=== PATIENT | female | born 1930 | race Caucasian/White ===

== ENCOUNTER → 2016-11-13 | Outpatient (CLI) | payer MEDICARE, OTHER ==
[~2016-11-13] MED LIST: ASCO-296 PO; CALC PO; CHOL100018 PO; HYDR-2164 PO; LEVO125T70 PO; MAG PO; NITR0.4T28 SL; OMEP20CA81 PO; POTA-81 PO; PRAV40TA46 PO; PROP20TA PO; VITA1TAB21 PO; ZINC PO; [UNRECOGNIZED DRUG - CODE] IH
--- NOTE | 2016-11-13 12:56 | DI ---
Indication: Follow-up, history of left breast cancer with lung metastases, history of partial left mastectomy with lymph node dissection, history of appendectomy, hysterectomy, lung biopsy, Cholecystectomy, bladder suspension, splenectomy, and incisional hernia repair Procedure: CT CHEST/ABDOMEN/PELVIS W/O: Encounter: Subsequent Comparison: CTs 07/13/2016 and 02/25/2016, bone scan 07/13/2016 Technique: Contiguous axial CT images of the chest, abdomen, and pelvis were obtained without intravenous contrast. Coronal and sagittal reformatted images were also obtained. Automated Exposure Control and Iterative Reconstruction dose reducing techniques were utilized. FINDINGS: Evaluation limited by lack of intravenous contrast. Chest: Unchanged scattered small pulmonary nodules, largest within the right lower lobe measuring 5 mm. Unchanged right middle lobe scarring. No new pulmonary nodule, mass, or focal consolidation. No endoluminal lesion. No pleural effusions or pneumothorax. The visualized thyroid gland appears normal. No mediastinal or hilar lymphadenopathy allowing for lack of intravenous contrast. The visualized esophagus appears normal. The heart is normal in size without pericardial effusion. Coronary arterial and thoracic aortic atherosclerotic calcifications. The great vessels of the thorax are otherwise within normal limits. No axillary lymphadenopathy. Postoperative changes of partial left mastectomy. No acute osseous abnormality. Unchanged osteoblastic lesions within C6, T1, and T12. Abdomen: The liver enhances homogeneously without focal mass. The gallbladder is surgically absent. No biliary ductal dilatation. The pancreas enhances homogeneously. The spleen is normal in size and enhancement. The adrenal glands are within normal limits. Unchanged left renal cyst. The noncontrast kidneys appear otherwise grossly normal. The ureters are normal in course and caliber. The abdominal aorta is normal in course and caliber. Small to moderate hiatal hernia. Postoperative changes of the stomach which is partially distended and appears otherwise normal. Small bowel loops are normal in caliber without evidence of obstruction. The colon appears normal. The appendix is normal. No intra-abdominal free air, free fluid, focal fluid collections, or lymphadenopathy. No acute osseous abnormality. Unchanged chronic spondylolytic anterolisthesis of L5-S1. Pelvis: Evaluation limited by streak artifact from the patient's left hip prosthesis. The bladder is distended and appears normal. The uterus is surgically absent. No adnexal masses seen. No pelvic free fluid or lymphadenopathy. No acute osseous abnormality. Unchanged osteoblastic lesion within the sacrum. Postoperative changes of left hip arthroplasty. Degenerative arthrosis of the SI joints. Impression: Redemonstration of postoperative changes of partial left mastectomy with unchanged small pulmonary nodules, largest measuring 5 mm within the right lower lobe and sclerotic lesions within C6, T1, T12, and the sacrum, without evidence of new/progressive metastatic disease. .
--- NOTE | 2016-11-13 14:23 | DI ---
Indication: ITS.REASON: C50.12 BREAST CA PROCEDURE: NM BONE SCAN, WHOLE BODY: Encounter: Subsequent Comparison: CTs of the chest, abdomen, and pelvis of the same day, prior bone scan 07/13/2016 Technique: 25.1 mCi of Tc-99m MDP was administered intravenously. Anterior and posterior planar whole-body and spot images were obtained. FINDINGS: The scan demonstrates the expected normal biodistribution for the radiotracer. There is probable degenerative uptake seen in the shoulders, left knee, and left midfoot. Photopenic defects from left hip and right knee replacements again noted. Increased activity seen associated with the known sclerotic lesion within T12. Additional increased uptake associated with a lesion within the posterolateral right seventh rib which appears unchanged by CT. There is no other/new abnormal radiotracer uptake to suggest bony metastasis. IMPRESSION: Increased activity seen associated with sclerotic lesions within T12 in the posterolateral left seventh rib which appear unchanged by CT. No other/new metastases identified. .
== END ==
LOC: IMA 10:02
PROVIDERS: ATTEND Internal Medicine Hematology & Oncology
DX: C50.312 Malignant neoplasm of lower-inner quadrant of left female breast (principal); M89.8X0 Other specified disorders of bone, multiple sites; R91.8 Other nonspecific abnormal finding of lung field; Z90.12 Acquired absence of left breast and nipple; Z98.890 Other specified postprocedural states
CPT/HCPCS: 71250; 74176; 78306; A9503

== ENCOUNTER 2017-05-10 20:22 | Inpatient (IN) ==
[2017-05-10] MEDS ORDERED: GI COCKTAIL 30 ML PO ONE (21:05)
--- NOTE | 2017-05-10 21:14 | Emergency Department Report ---
Chest Pain HPI - General Chief Complaint: Medical Emergency <[facility] 05/11[facility]17 00:58> Stated Complaint: GERD attack,Swelling legs/feet <November,[facility] 05/11/17 00:58 > Time Seen by Provider: 05/10/17 20:56 [facility] Source: patient <Megan Martinez - 05/10/17 21:14> Mode of arrival: ambulatory <NoRoseann friedmana N - 05/10/17 21:14> Limitations: no limitations <NoldMariahMegan N - 05/10/17 21:14> - History of Present Illness HPI narrative: She presents to ER jade for c/o chest pain. She states that this has been going on for the last 2 weeks. She feels that it is worse with ambulation. She was recently admitted to [facility] and had chest pain workup. She was advised that this was bad GERD. She has been taking her <Nold,Megan N - 05/10/17 21:37> MD complaint: chest pain <NoldRoseanna N 05/10/17 21:14> Occurred At: home <NoldMariahMegan N 05/10/17 21:14> Onset (ago): week(s) (For the last 2 weeks.) <NoldMariahMegan N 05/10/17 21:14> Duration: intermittent <NoldMariahMegan N 05/10/17 23:30> Onset: during exertion <Nold,Megan N 05/10/17 23:30> Pain location: substernal <Nold,Megan N - 05/10/17 23:30> Severity: moderate <Nold,Megan N - 05/10/17 23:30> Quality: tightness <Nold,Megan N 05/10/17 23:30> Pain radiation: none <Nold,Megan N 05/10/17 23:30> Relieving factors: nothing <Nold,Megan N - 05/10/17 23:30> Exacerbating factors: exertion <Nold,Megan N 05/10/17 23:30> Associated symptoms: other (None) <Nold,Megan N - 05/10/17 23:30> Treatments prior to arrival chest pain: none <Megan Martinez - 05/10/17 23:30> - Related Data Home Medications Medication Instructions Recorded Confirmed Albuterol Sulfate 2.5 mg IH BID #0 03/18/09 05/10/17 Ascorbic Acid [Vitamin C] 500 mg PO DAILY #0 03/18/09 05/10/17 Nitroglycerin [Nitrostat] 0.4 mg SL Q5MIN #0 03/18/09 05/10/17 Levothyroxine Tab [Synthroid] 125 mcg PO ACB #0 01/05/14 05/10/17 Pravastatin Sodium 40 mg PO HS #0 01/05/14 05/10/17 Propranolol HCl 20 mg PO BID #0 01/05/14 05/10/17 Potassium Chloride 20 meq PO WB #0 12/23/15 05/10/17 Vitamin B Complex 1 tab PO DAILY #0 12/23/15 05/10/17 Ferrous Sulfate [Feosol] 324 mg PO DAILY 05/10/17 05/10/17 Levofloxacin [Levaquin] 500 mg PO DAILY 05/10/17 05/10/17 Omeprazole 20 mg PO DAILY 05/10/17 05/10/17 Palbociclib [Ibrance] 125 mg PO DAILY 05/10/17 05/10/17 Torsemide [Torsemide] 10 mg PO DAILY 05/10/17 05/10/17 <[facility] 00:58> Allergies Allergy/AdvReac Type Severity Reaction Status Date / Time iodine Allergy Severe DIFFICULTY Verified 05/10/17 21:11 BREATHING venom-honey bee Allergy Unknown Verified 05/10/17 21:11 venom-wasp Allergy Unknown Verified 05/10/17 21:11 <[facility] 00:58> Review of Systems Constitutional: Denies: fever, chills, weakness <Megan Martinez - 05/10/17 23: 30> ENT: Denies: ear pain, throat pain, congestion <Megan Martinez - 05/10/17 23:30 > Cardiovascular: Reports: chest pain, dyspnea on exertion, edema (bilateral lower extremities). Denies: palpitations <Megan Martinez 05/10/17 23:30> Respiratory: Denies: cough, dyspnea, wheezes <Megan Martinez 05/10/17 23:30> Gastrointestinal: Denies: abdominal pain, nausea, vomiting, diarrhea <Megan Martinez 05/10/17 23:30> Integumentary: Denies: rash <Megan Martinez 05/10/17 23:30> Neurological: Denies: headache, weakness, numbness, paresthesias <Megan Martinez 05/10/17 23:30> PFSH Patient Stated Medical History Cataracts Yes Other HEENT Yes: Legally blind Congestive Heart Failure Yes Hypotension Yes Asthma Yes Other Respiratory Yes: Seasonal allergies Hiatal Hernia Yes Hx Kidney Stones Yes Hx Urinary Tract Infection Yes Other Hematologic Yes: Daily 81mg ASA Osteoarthritis Yes Depression Yes <NovemberJosias M 05/11/17 00:58> Patient Stated Medical History Cataracts Yes Other HEENT Yes: Legally blind Congestive Heart Failure Yes Hypotension Yes Asthma Yes Other Respiratory Yes: Seasonal allergies Hiatal Hernia Yes Hx Kidney Stones Yes Hx Urinary Tract Infection Yes Other Hematologic Yes: Daily 81mg ASA Osteoarthritis Yes Depression Yes <Megan Martinez 05/10/17 23:30> - Social History Smoking status: Never smoker <Megan Martinez 05/10/17 23:30> Substance use type: does not use <Megan Martinez 05/10/17 23:30> Alcohol intake frequency: does not drink <Megan Martinez 05/10/17 23:30> Physical Exam - Limitations Limitations: no limitations <Megan Martinez 05/10/17 23:30> - General General appearance: alert, in no apparent distress <Megan Martinez 05/10/17 23:30> - Normal Exams: ENMT:: No facial trauma, nasal exudates, pharyngeal erythema, or exudates are noted <Megan Martinez 05/10/17 23:30> Neck:: Full range of motion, without adenopathy, JVD, bruits or thyromegaly < Megan Martinez 05/10/17 23:30> Chest/Respirations:: Clear all jacobo, with good airflow, and symmetry bilaterally <Megan Martinez 05/10/17 23:30> Cardiovascular:: Regular rate and rhythm, without murmur or gallop, Pulses 2+ all extremities, capillary refill, <2 seconds all extremities <Megan Martinez 05/10/17 23:30> Abdomen:: Bowel sounds positive, soft, non-tender, non-distended, no hepatosplenomegaly, masses or bruits noted <Megan Martinez 05/10/17 23:30> Lymphatic:: No lymphadenopathy, or lymphedema noted <Megan Martinez 05/10/17 23:30> Integumentary:: No rashes, hives, or bruising noted <Megan Martinez 05/10/17 23:30> Neurological:: Patient is alert, and oriented <Megan Martinez 05/10/17 23:30> Psychiatric:: Patient exhibits, appropriate attention, emotion and affect < Megan Martinez 05/10/17 23:30> - Skin Skin exam: Present: pallor <Megan Martinez 05/10/17 23:30> Course Vital Signs Temperature 97.8 F 05/10/17 20:46 Pulse Rate 88 05/10/17 20:46 Respiratory Rate 18 05/10/17 20:46 Blood Pressure 118/71 05/10/17 20:46 Pulse Oximetry 94 05/10/17 20:46 Temperature 97.4 F 05/11/17 00:48 Pulse Rate 80 05/11/17 00:48 Respiratory Rate 18 05/11/17 00:48 Blood Pressure 133/63 05/11/17 00:48 Pulse Oximetry 98 05/11/17 00:48 <NovemberJosias M - 05/11/17 00:58> Chest Pain - MDM Narrative Medical decision making narrative: Her hgb is low at 6.8. WBC is elevated but source not identified, urine is clear and chest xray is clear as well. Blood cultures are pending. Did offer GI cocktail and Zofran and she did decline both. Troponin is not elevated but noted at 0.024. Lactate is elevated at 2.2, procalcitonin is normal. Rocephin was given IV x1 in ER. Vital are stable. Na is 122. Did discuss findings with Dr Espinoza. He will accept for admission at this time. <Megan Martinez N - 05/10/17 23:30> - Differential Diagnosis Likely: stable angina, unstable angina pectoris, atypical chest pain, st elevation myocardial infarction, costochondritis, chest pain <Megan Martinez N - 05/10/17 23:30> - Lab Data Attestation: I reviewed the patient's lab results. <Megan Martinez N - 05/10/17 23:30> Result diagrams: 05/10/17 21:25 05/10/17 21:25 <November,Josias M - 05/11/17 00:58> Lab Results 05/10/17 05/10/17 05/10/17 Range/Units 21:25 21:25 21:57 WBC 29.3 H* (4.5-11.0) T/MM3 RBC 1.81 L (4.00-5.20) M/MM3 Hgb 6.8 L (12-16) GM/DL Hct 20.6 L (36-46) % MCV 113.8 H (80-100) UM3 MCH 37.6 H (26-34) UUG MCHC 33.0 (31-37) GM/DL RDW Std Deviation Not performed Plt Count 177 (130-400) T/MM3 MPV 10.5 (9.4-12.4) UM3 Immature Gran % (Auto) Not performed Neut % (Auto) Not performed Lymph % (Auto) Not performed [place] % (Auto) Not performed Eos % (Auto) Not performed Baso % (Auto) Not performed Neut # (Auto) Not performed Lymph # (Auto) Not performed [place] # (Auto) Not performed Eos # (Auto) Not performed Baso # (Auto) Not performed Abs Immat Gran (auto) Not performed Neutrophils % (Manual) 36.0 (33-66) % Band Neutrophils % 48.0 H (0-6) % Lymphocytes % (Manual) 9.0 L (23-45) % Monocytes % (Manual) 1.0 (0-9.0) % Basophils % (Manual) 1.0 (0-2) % Metamyelocytes % 5.0 H (0-0) % Neutrophils # (Manual) 10.5 H (1.8-7.7) T/MM3 Band Neutrophils # 14.1 T/MM3 Lymphocytes # (Manual) 2.6 (1-4.8) T/MM3 Monocytes # (Manual) 0.3 (0-0.8) T/MM3 Basophils # (Manual) 0.3 H (0-0.2) T/MM3 Metamyelocytes # 1.5 T/MM3 Poikilocytosis 2+ Anisocytosis 3+ Macrocytosis 2+ Schistocytes 2+ RBC Morph Comment Abnormal Turbidity < 20 (0-20) Sodium 122 L (134-144) MEQ/L Potassium 4.2 (3.6-5) MEQ/L Chloride 91 L (98-107) MEQ/L Carbon Dioxide 24 (22-30) MEQ/L Anion Gap 7 (5-15) MEQ/L BUN 11.0 (7-17) MG/DL Creatinine 0.6 L (0.7-1.2) MG/DL GFR Calculation 94 BUN/Creatinine Ratio 18 (6-26) RATIO Glucose 155 H (65-110) MG/DL Calculated Osmolality 238 L (261-280) MOSM/KG Calcium 8.5 (8.4-10.2) MG/DL Total Bilirubin 0.40 (0.20-1.30) MG/DL Icterus Index < 2 (0-7) AST 39 H (14-36) U/L ALT 40 (9-52) U/L Alkaline Phosphatase 70 (38-126) U/L Troponin I 0.024 (0-0.12) ng/ml B-Natriuretic Peptide 6760 H (0-175) pg/mL Total Protein 6.4 (6.3-8.2) G/DL Albumin 3.4 L (3.5-5.0) G/DL Globulin 3.0 (2.4-3.6) G/DL Albumin/Globulin Ratio 1.1 (1.1-2.2) RATIO Plasma Lactate (0.6-2.2) MMOL/L Procalcitonin NG/ML Specimen Hemolysis 32 H (0-25) Ur Collection Type Urine Color (YELLOW) Urine Clarity Urine pH (5.0-8.0) Ur Specific [place] (1.015-1.025) Urine Protein (NEGATIVE) Urine Glucose (UA) (NEGATIVE) Urine Ketones (NEGATIVE) Urine Occult Blood (NEGATIVE) Urine Nitrate (NEGATIVE) Urine Bilirubin (NEGATIVE) Urine Urobilinogen (NORMAL) EU/DL Ur Leukocyte Esterase (NEGATIVE) Urinalysis Comment Blood Type A Negative Antibody Screen Positive A* Antibody Identification Anti-D 05/10/17 05/10/17 05/10/17 Range/Units 22:16 22:16 22:47 WBC (4.5-11.0) T/MM3 RBC (4.00-5.20) M/MM3 Hgb (12-16) GM/DL Hct (36-46) % MCV (80-100) UM3 MCH (26-34) UUG MCHC (31-37) GM/DL RDW Std Deviation Plt Count (130-400) T/MM3 MPV (9.4-12.4) UM3 Immature Gran % (Auto) Neut % (Auto) Lymph % (Auto) [place] % (Auto) Eos % (Auto) Baso % (Auto) Neut # (Auto) Lymph # (Auto) [place] # (Auto) Eos # (Auto) Baso # (Auto) Abs Immat Gran (auto) Neutrophils % (Manual) (33-66) % Band Neutrophils % (0-6) % Lymphocytes % (Manual) (23-45) % Monocytes % (Manual) (0-9.0) % Basophils % (Manual) (0-2) % Metamyelocytes % (0-0) % Neutrophils # (Manual) (1.8-7.7) T/MM3 Band Neutrophils # T/MM3 Lymphocytes # (Manual) (1-4.8) T/MM3 Monocytes # (Manual) (0-0.8) T/MM3 Basophils # (Manual) (0-0.2) T/MM3 Metamyelocytes # T/MM3 Poikilocytosis Anisocytosis Macrocytosis Schistocytes RBC Morph Comment Turbidity (0-20) Sodium (134-144) MEQ/L Potassium (3.6-5) MEQ/L Chloride (98-107) MEQ/L Carbon Dioxide (22-30) MEQ/L Anion Gap (5-15) MEQ/L BUN (7-17) MG/DL Creatinine (0.7-1.2) MG/DL GFR Calculation BUN/Creatinine Ratio (6-26) RATIO Glucose (65-110) MG/DL Calculated Osmolality (261-280) MOSM/KG Calcium (8.4-10.2) MG/DL Total Bilirubin (0.20-1.30) MG/DL Icterus Index (0-7) AST (14-36) U/L ALT (9-52) U/L Alkaline Phosphatase (38-126) U/L Troponin I (0-0.12) ng/ml B-Natriuretic Peptide (0-175) pg/mL Total Protein (6.3-8.2) G/DL Albumin (3.5-5.0) G/DL Globulin (2.4-3.6) G/DL Albumin/Globulin Ratio (1.1-2.2) RATIO Plasma Lactate 2.2 (0.6-2.2) MMOL/L Procalcitonin 0.12 NG/ML Specimen Hemolysis (0-25) Ur Collection Type Urine, clean catch Urine Color Yellow (YELLOW) Urine Clarity Clear Urine pH 5.5 (5.0-8.0) Ur Specific [place] 1.015 (1.015-1.025) Urine Protein Negative (NEGATIVE) Urine Glucose (UA) Negative (NEGATIVE) Urine Ketones Negative (NEGATIVE) Urine Occult Blood Negative (NEGATIVE) Urine Nitrate Negative (NEGATIVE) Urine Bilirubin Negative (NEGATIVE) Urine Urobilinogen 0.2 (NORMAL) EU/DL Ur Leukocyte Esterase Negative (NEGATIVE) Urinalysis Comment Microscopic not ind. Blood Type Antibody Screen Antibody Identification < M - 05/11/17 00:58> Lab Results 05/10/17 05/10/17 05/10/17 Range/Units 21:25 21:25 21:57 WBC 29.3 H* (4.5-11.0) T/MM3 RBC 1.81 L (4.00-5.20) M/MM3 Hgb 6.8 L (12-16) GM/DL Hct 20.6 L (36-46) % MCV 113.8 H (80-100) UM3 MCH 37.6 H (26-34) UUG MCHC 33.0 (31-37) GM/DL RDW Std Deviation Not performed Plt Count 177 (130-400) T/MM3 MPV 10.5 (9.4-12.4) UM3 Immature Gran % (Auto) Not performed Neut % (Auto) Not performed Lymph % (Auto) Not performed [place] % (Auto) Not performed Eos % (Auto) Not performed Baso % (Auto) Not performed Neut # (Auto) Not performed Lymph # (Auto) Not performed [place] # (Auto) Not performed Eos # (Auto) Not performed Baso # (Auto) Not performed Abs Immat Gran (auto) Not performed Neutrophils % (Manual) 36.0 (33-66) % Band Neutrophils % 48.0 H (0-6) % Lymphocytes % (Manual) 9.0 L (23-45) % Monocytes % (Manual) 1.0 (0-9.0) % Basophils % (Manual) 1.0 (0-2) % Metamyelocytes % 5.0 H (0-0) % Neutrophils # (Manual) 10.5 H (1.8-7.7) T/MM3 Band Neutrophils # 14.1 T/MM3 Lymphocytes # (Manual) 2.6 (1-4.8) T/MM3 Monocytes # (Manual) 0.3 (0-0.8) T/MM3 Basophils # (Manual) 0.3 H (0-0.2) T/MM3 Metamyelocytes # 1.5 T/MM3 Poikilocytosis 2+ Anisocytosis 3+ Macrocytosis 2+ Schistocytes 2+ RBC Morph Comment Abnormal Turbidity < 20 (0-20) Sodium 122 L (134-144) MEQ/L Potassium 4.2 (3.6-5) MEQ/L Chloride 91 L (98-107) MEQ/L Carbon Dioxide 24 (22-30) MEQ/L Anion Gap 7 (5-15) MEQ/L BUN 11.0 (7-17) MG/DL Creatinine 0.6 L (0.7-1.2) MG/DL GFR Calculation 94 BUN/Creatinine Ratio 18 (6-26) RATIO Glucose 155 H (65-110) MG/DL Calculated Osmolality 238 L (261-280) MOSM/KG Calcium 8.5 (8.4-10.2) MG/DL Total Bilirubin 0.40 (0.20-1.30) MG/DL Icterus Index < 2 (0-7) AST 39 H (14-36) U/L ALT 40 (9-52) U/L Alkaline Phosphatase 70 (38-126) U/L Troponin I 0.024 (0-0.12) ng/ml B-Natriuretic Peptide 6760 H (0-175) pg/mL Total Protein 6.4 (6.3-8.2) G/DL Albumin 3.4 L (3.5-5.0) G/DL Globulin 3.0 (2.4-3.6) G/DL Albumin/Globulin Ratio 1.1 (1.1-2.2) RATIO Plasma Lactate (0.6-2.2) MMOL/L Procalcitonin NG/ML Specimen Hemolysis 32 H (0-25) Ur Collection Type Urine Color (YELLOW) Urine Clarity Urine pH (5.0-8.0) Ur Specific [place] (1.015-1.025) Urine Protein (NEGATIVE) Urine Glucose (UA) (NEGATIVE) Urine Ketones (NEGATIVE) Urine Occult Blood (NEGATIVE) Urine Nitrate (NEGATIVE) Urine Bilirubin (NEGATIVE) Urine Urobilinogen (NORMAL) EU/DL Ur Leukocyte Esterase (NEGATIVE) Urinalysis Comment Blood Type A Negative Antibody Screen Positive A* Antibody Identification Anti-D 05/10/17 05/10/17 05/10/17 Range/Units 22:16 22:16 22:47 WBC (4.5-11.0) T/MM3 RBC (4.00-5.20) M/MM3 Hgb (12-16) GM/DL Hct (36-46) % MCV (80-100) UM3 MCH (26-34) UUG MCHC (31-37) GM/DL RDW Std Deviation Plt Count (130-400) T/MM3 MPV (9.4-12.4) UM3 Immature Gran % (Auto) Neut % (Auto) Lymph % (Auto) [place] % (Auto) Eos % (Auto) Baso % (Auto) Neut # (Auto) Lymph # (Auto) [place] # (Auto) Eos # (Auto) Baso # (Auto) Abs Immat Gran (auto) Neutrophils % (Manual) (33-66) % Band Neutrophils % (0-6) % Lymphocytes % (Manual) (23-45) % Monocytes % (Manual) (0-9.0) % Basophils % (Manual) (0-2) % Metamyelocytes % (0-0) % Neutrophils # (Manual) (1.8-7.7) T/MM3 Band Neutrophils # T/MM3 Lymphocytes # (Manual) (1-4.8) T/MM3 Monocytes # (Manual) (0-0.8) T/MM3 Basophils # (Manual) (0-0.2) T/MM3 Metamyelocytes # T/MM3 Poikilocytosis Anisocytosis Macrocytosis Schistocytes RBC Morph Comment Turbidity (0-20) Sodium (134-144) MEQ/L Potassium (3.6-5) MEQ/L Chloride (98-107) MEQ/L Carbon Dioxide (22-30) MEQ/L Anion Gap (5-15) MEQ/L BUN (7-17) MG/DL Creatinine (0.7-1.2) MG/DL GFR Calculation BUN/Creatinine Ratio (6-26) RATIO Glucose (65-110) MG/DL Calculated Osmolality (261-280) MOSM/KG Calcium (8.4-10.2) MG/DL Total Bilirubin (0.20-1.30) MG/DL Icterus Index (0-7) AST (14-36) U/L ALT (9-52) U/L Alkaline Phosphatase (38-126) U/L Troponin I (0-0.12) ng/ml B-Natriuretic Peptide (0-175) pg/mL Total Protein (6.3-8.2) G/DL Albumin (3.5-5.0) G/DL Globulin (2.4-3.6) G/DL Albumin/Globulin Ratio (1.1-2.2) RATIO Plasma Lactate 2.2 (0.6-2.2) MMOL/L Procalcitonin 0.12 NG/ML Specimen Hemolysis (0-25) Ur Collection Type Urine, clean catch Urine Color Yellow (YELLOW) Urine Clarity Clear Urine pH 5.5 (5.0-8.0) Ur Specific [place] 1.015 (1.015-1.025) Urine Protein Negative (NEGATIVE) Urine Glucose (UA) Negative (NEGATIVE) Urine Ketones Negative (NEGATIVE) Urine Occult Blood Negative (NEGATIVE) Urine Nitrate Negative (NEGATIVE) Urine Bilirubin Negative (NEGATIVE) Urine Urobilinogen 0.2 (NORMAL) EU/DL Ur Leukocyte Esterase Negative (NEGATIVE) Urinalysis Comment Microscopic not ind. Blood Type Antibody Screen Antibody Identification <Megan Martinez N - 05/10/17 21:23> - Radiology Data Attestation: I reviewed the patient's radiology results. <November 22:10> CXR: B/l pulm effusion; increased RLL opacity c/w possible PNA. <05/10/17 22:10> - EKG Data EKG #1 EKG attestation: Yes: I reviewed and interpreted this EKG. < 00:58> EKG shows normal: sinus rhythm, axis, intervals <05/11/17 00:58> Rate: normal <05/11/17 00:58> QRS morphology: other (Righ ventricular conduction delay) <05/11 00:58> Interpretation: nonspecific ST-T wave changes 05/11/17 00:58> Disposition Clinical Impression: Anemia Qualifiers: Anemia type: unspecified type Qualified Code(s): D64.9 - Anemia, unspecified Leukocytosis Qualifiers: Leukocytosis type: other Qualified Code(s): D72.828 - Other elevated white blood cell count <05/11/17 00:58> Disposition: 02 To [facility] [place] Acute Care <05/11/17 00:58> Condition: Stable <05/11/17 00:58> Instructions: <05/11/17 00:58> Prescriptions: No Action Nitroglycerin [Nitrostat] 0.4 mg SL Q5MIN #0 Vitamin B Complex 1 tab PO DAILY #0 Potassium Chloride 20 meq PO WB #0 Omeprazole 20 mg PO DAILY Torsemide [Torsemide] 10 mg PO DAILY Palbociclib [Ibrance] 125 mg PO DAILY Levofloxacin [Levaquin] 500 mg PO DAILY Ferrous Sulfate [Feosol] 324 mg PO DAILY Albuterol Sulfate 2.5 mg IH BID #0 Ascorbic Acid [Vitamin C] 500 mg PO DAILY #0 Pravastatin Sodium 40 mg PO HS #0 Propranolol HCl 20 mg PO BID #0 Levothyroxine Tab [Synthroid] 125 mcg PO ACB #0 <05/11/17 00: 58> Referrals: Darius Rangel II, MD [Family Provider] - /27/ 17 00:58> Forms: <NovemberJosias M - 05/11/17 00:58> Time of Disposition: 23:14 <Megan Martinez N - 05/10/17 23:14> - Seen By: midlevel <Megan Martinez N - 05/10/17 23:14>
[2017-05-10] MEDS ORDERED: ONDANSETRON 4 MG/2 ML INJECTION IVP ONE (21:23)
[2017-05-10] MEDS ORDERED: CEFTRIAXONE (ER USE ONLY) 1 GM in NS 100 ML IV ONE (22:06)
[2017-05-10] MEDS: SALINE FLUSH 10ml SYRINGE IVF PRN (22:20)
--- NOTE | 2017-05-10 23:28 | History & Physical Report ---
History of Present Illness Date: 05/11/17 Chief complaint: chest pain HPI: 87-year-old female presents to the emergency room with chest pain. She says it feels like GERD/heartburn. has been intermittent over the past 2 weeks and spent much worse with activity. [facility] what sounds like for a workup for this. Apparently she had a cardiac workup, but is not clear to me if she had a GI workup as well. She does report that she had some polyps taken out and stomach 2 years ago but she doesn't seem to remember endoscopy in the last week or 2. She says drinking hot water helps it, she also describes that sounds like she's gotten either iron infusions or perhaps other shots for anemia in the past few days with her oncologist. She is seeing for her breast cancer/lung cancer treatments she denies any fever or chills she denies any productive cough. She denies nausea vomiting she denies any bloody stools but she says she has black stools from iron she is taking. She denies any skin rash or areas that she thinks are infected on her skin. Review of Systems All systems PM: 10-point ROS was reviewed, no additional remarkable complaints except PFSH Patient Stated Medical History Cataracts Yes Other HEENT Yes: Legally blind Congestive Heart Failure Yes Hypotension Yes Asthma Yes Other Respiratory Yes: Seasonal allergies Hiatal Hernia Yes Hx Kidney Stones Yes Hx Urinary Tract Infection Yes Other Hematologic Yes: Daily 81mg ASA Osteoarthritis Yes Depression Yes Surgical History: L breast lumpectomy. Splenectomy s/p trauma Family History: n/c based on age - Social History Smoking status: Former smoker Substance use type: does not use Alcohol intake frequency: does not drink Housing: house Household members: children (son has been living with her past week with recent illness) Medications Home Medications Medication Instructions Recorded Confirmed Type Albuterol Sulfate 2.5 mg IH BID #0 03/18/09 05/10/17 History Ascorbic Acid [Vitamin C] 500 mg PO DAILY #0 03/18/09 05/10/17 History Nitroglycerin [Nitrostat] 0.4 mg SL Q5MIN #0 03/18/09 05/10/17 History Levothyroxine Tab [Synthroid] 125 mcg PO ACB #0 01/05/14 05/10/17 History Pravastatin Sodium 40 mg PO HS #0 01/05/14 05/10/17 History Propranolol HCl 20 mg PO BID #0 01/05/14 05/10/17 History Potassium Chloride 20 meq PO WB #0 12/23/15 05/10/17 History Vitamin B Complex 1 tab PO DAILY #0 12/23/15 05/10/17 History Ferrous Sulfate [Feosol] 324 mg PO DAILY 05/10/17 05/10/17 History Levofloxacin [Levaquin] 500 mg PO DAILY 05/10/17 05/10/17 History Omeprazole 20 mg PO DAILY 05/10/17 05/10/17 History Palbociclib [Ibrance] 125 mg PO DAILY 05/10/17 05/10/17 History Torsemide [Torsemide] 10 mg PO DAILY 05/10/17 05/10/17 History Allergies Allergy/AdvReac Type Severity Reaction Status Date / Time iodine Allergy Severe DIFFICULTY Verified 05/11/17 02:38 BREATHING venom-honey bee Allergy Unknown Verified 05/11/17 02:38 venom-wasp Allergy Unknown Verified 05/11/17 02:38 Exam Vital Signs: Temperature 97.8 F 05/10/17 20:46 Pulse Rate 59 L 05/10/17 23:12 Respiratory Rate 18 05/10/17 23:12 Blood Pressure 129/79 05/10/17 23:12 Pulse Oximetry 98 05/10/17 23:12 Height/Weight/BMI: Height 1.55 m Weight 76.204 kg - Constitutional Present: no acute distress (quite pleasant to visit with) - Routine HEENT Exam Head: Present: normocephalic - Routine Neck Exam Present: supple - Routine Respiratory Exam Present: CTA bilaterally. Absent: accessory muscle use - Routine Cardiovascular Exam Present: RRR, murmur (3/6 at left sternal border) - Routine Abdominal Exam Present: soft, normoactive bowel sounds, non distended, non tender - Routine Extremities Exam Present: edema (2+ legs (chronic appearing) ). Absent: cyanosis, clubbing - Routine Skin Exam Present: intact - Routine Neurological Exam Present: alert, oriented X3, CN II-XII intact - Routine Psychiatric Exam Present: normal affect Results - Labs CBC & Chem 7: 05/10/17 21:25 05/10/17 21:25 Microbiology Results: Microbiology 05/10/17 22:16 Peripheral/Iv Start Blood Culture - Preliminary Culture Initiated - Results Pending 05/10/17 22:21 Peripheral/Iv Start Blood Culture - Preliminary Culture Initiated - Results Pending Assessment and Plan (1) Severe sepsis Current visit: Yes Status: Acute (2) Anemia Current visit: Yes Status: Acute (3) Leukocytosis Current visit: Yes Status: Acute (4) Hypothyroid Current visit: Yes Status: Acute (5) Peripheral edema Current visit: Yes Status: Acute (6) Chest pain Current visit: Yes Status: Acute (7) GERD (gastroesophageal reflux disease) Current visit: Yes Status: Acute (8) Metastatic breast cancer Current visit: Yes Status: Acute (9) Asplenia Current visit: Yes Status: Acute Assessment and Plan: Her symptoms, elevated lactate and white blood cell count minimally concern for some source of infection. He received Rocephin in the emergency room and has been fluids and I have ordered Zosyn and vancomycin with a recent hospital stay. Honestly I think this may be a bit overkill, but with her asplenia and lactate elevated white blood cell count etc. is concerned. Her elevated white blood cell count could very well be from her asplenia. Getting records from [place] along with reviewing records from her oncologist would be quite helpful supplement my lack of history at this time. Concerned she has some internal bleeding in the GI has not been involved in her care at some point with recent endoscopy I believe this is warranted with her severe GERD-type chest pain. I think it's noncardiac, and verbal. The esophageal candidiasis or herpes among other possibilities. IV Protonix as been ordered, and addition of sucralfate after endoscopy may be warranted. Hospital Course Summary Disclaimer: The visit summary below is not to be considered part of the above Progress Note.
[2017-05-11] MEDS ORDERED: VANCOMYCIN 1,250 MG in NS 500ml 500 ML IV ONE (02:32)
[2017-05-11] MEDS ORDERED: ONDANSETRON 4 MG/2 ML INJECTION IVP PRN (02:32)
[2017-05-11] MEDS ORDERED: VANCOMYCIN - PHARMACY CONSULT MC ONE (02:32)
[2017-05-11 02:40] VITALS: BMI 31.9
[2017-05-11] MEDS: SALINE FLUSH 10ml SYRINGE IVF PRN ×2 (04:21→14:12)
[2017-05-11] MEDS: PANTOPRAZOLE 40 MG INJECTION IVP SCH ×2 (04:21→14:12)
[2017-05-11] MEDS: PIPERACILLIN/TAZOBACTAM 3.375 GM in NS 100 ML IV SCH ×3 (04:41→18:00)
[2017-05-11] MEDS: ALBUTEROL 2.5mg/3ml (0.083%) NEB AEROSOL SCH ×2 (04:54→11:34)
[2017-05-11] MEDS: NS FLUSH BAG 500ml IV PRN ×2 (05:11→07:02)
[2017-05-11] MEDS ORDERED: ACETAMINOPHEN 325 MG TABLET PO ONE (07:00)
[2017-05-11] MEDS ORDERED: DiphenhydrAMINE 25 MG CAPSULE PO ONE (07:00)
--- NOTE | 2017-05-11 07:29 | Pharmacy Consult-Antibiotics ---
Pharmacy Consult-Vancomycin - Laboratory Information WBC 29.3 T/MM3 (4.5-11.0) H* 05/10/17 21:25 BUN 11.0 MG/DL (7-17) 05/10/17 21:25 Creatinine 0.6 MG/DL (0.7-1.2) L 05/10/17 21:25 Procalcitonin 0.12 NG/ML 05/10/17 22:16 - Consult Information Vancomycin consult noted by Dr Morales for vancomycin therapy for Ms Casiano. She is 87 years old, 76.7kg, and has a serum creatinine of 0.6 mg/dl. She has a diagnosis of sepsis. She received vancomycin 1250mg as a one time dose this morning at 0530. Will begin vancomycin 1250mg IV q18h at noon today. Will continue to monitor and adjust doses if needed. Thank you.
--- NOTE | 2017-05-11 08:29 | XRay Report ---
Indication: dyspnea Procedure: XR chest 2V: Encounter: Initial Comparison: Chest CT 03/22/2017, chest radiograph 12/23/2015 Technique: AP and lateral radiographs of the chest were obtained. Findings: Lungs and airways: Increased lung volumes suggesting COPD. Right greater than left basilar airspace opacities likely related to atelectasis. Mild pulmonary vascular congestion. Pleura: Small bilateral pleural effusions. No pneumothorax. Heart and mediastinum: Cardiomegaly. Aortic atherosclerosis. Osseous structures and soft tissues: No acute osseous abnormality is seen. Degenerative changes of the shoulders and thoracic spine. Impression: 1. Cardiomegaly with mild pulmonary vascular congestion and small pleural effusions. 2. Right greater than left basilar airspace opacities likely related to relaxation atelectasis, although in the appropriate clinical setting, a superimposed infectious/inflammatory process would be difficult to exclude. .
--- NOTE | 2017-05-11 10:38 | General Surgery Consult Note ---
Consult date: 05/11/17 Attending Physician: Dean Stewart IV, MD Reason for consult: other (anemia) [facility] Patient Stated Medical History Cataracts Yes Other HEENT Yes: Legally blind-MD Congestive Heart Failure Yes: PT UNSURE Heart Murmur Yes Hypotension Yes Myocardial Infarction Yes Asthma Yes Other Respiratory Yes: Seasonal allergies Hiatal Hernia Yes Hx Kidney Stones Yes Hx Urinary Tract Infection Yes Other Hematologic Yes: Daily 81mg ASA Osteoarthritis Yes Depression Yes Surgical History: L breast lumpectomy. Splenectomy s/p trauma Family History: non-contributory - Social History Smoking status: Former smoker Substance use type: does not use Household members: caregiver (son staying with her currently) Medications Home Medications Medication Instructions Recorded Confirmed Type Albuterol Sulfate 2.5 mg IH BID #0 03/18/09 05/10/17 History Ascorbic Acid [Vitamin C] 500 mg PO DAILY #0 03/18/09 05/10/17 History Nitroglycerin [Nitrostat] 0.4 mg SL Q5MIN #0 03/18/09 05/10/17 History Levothyroxine Tab [Synthroid] 125 mcg PO ACB #0 01/05/14 05/10/17 History Pravastatin Sodium 40 mg PO HS #0 01/05/14 05/10/17 History Propranolol HCl 20 mg PO BID #0 01/05/14 05/10/17 History Potassium Chloride 20 meq PO WB #0 12/23/15 05/10/17 History Vitamin B Complex 1 tab PO DAILY #0 12/23/15 05/10/17 History Ferrous Sulfate [Feosol] 324 mg PO DAILY 05/10/17 05/10/17 History Levofloxacin [Levaquin] 500 mg PO DAILY 05/10/17 05/10/17 History Omeprazole 20 mg PO DAILY 05/10/17 05/10/17 History Palbociclib [Ibrance] 125 mg PO DAILY 05/10/17 05/10/17 History Torsemide [Torsemide] 10 mg PO DAILY 05/10/17 05/10/17 History Allergies Allergy/AdvReac Type Severity Reaction Status Date / Time iodine Allergy Severe DIFFICULTY Verified 05/11/17 02:38 BREATHING Influenza Virus Vaccines Allergy Mild Rash Verified 05/11/17 07:47 venom-honey bee Allergy Unknown Verified 05/11/17 02:38 venom-wasp Allergy Unknown Verified 05/11/17 02:38 Review of Systems 10-point ROS: negative except for HPI and the following: - Respiratory Respiratory: Present: difficulty breathing, cough, other (lung cancer) - Gastrointestinal Gastrointestinal: Present: other (black stools) - Musculoskeletal Musculoskeletal: Present: joint pain - Neurological Neurological: Present: muscle weakness - Endocrine Endocrine: Present: thyroid problems - Hematologic/Lymphatic Hematologic/Lymphatic: Present: other (history of anemia, HGB 5.8 in summer) - Vital Signs Last Vital Signs Temp 97.9 F 05/11/17 08:24 Pulse 75 05/11/17 08:24 Resp 16 05/11/17 08:24 BP 103/53 05/11/17 08:24 Pulse Ox 92 05/11/17 08:24 - Laboratory Result Diagrams: 05/10/17 21:25 05/10/17 21:25 Hospital Course Summary Disclaimer: The visit summary below is not to be considered part of the above Progress Note.
[2017-05-11] MEDS ORDERED: LIDOCAINE VISCOUS 2% ORAL LIQUID 15ml PO ONE (11:12)
--- NOTE | 2017-05-11 11:29 | Anesthesia Preoperative Report ---
Anesthesia Preoperative Record - Date and Time Date: 05/11/17 Preoperative Diagnosis: Chest pain Proposed Procedure: EGD NPO Since Date: 05/11/17 NPO Since Time: 00:00 Allergies/Adverse Reactions: Allergies Allergy/AdvReac Type Severity Reaction Status Date / Time iodine Allergy Severe DIFFICULTY Verified 05/11/17 02:38 BREATHING Influenza Virus Vaccines Allergy Mild Rash Verified 05/11/17 07:47 venom-honey bee Allergy Unknown Verified 05/11/17 02:38 venom-wasp Allergy Unknown Verified 05/11/17 02:38 - Vital Signs Vital Signs: Temperature 97.4 F 05/11/17 11:13 Pulse Rate 74 05/11/17 11:13 Respiratory Rate 16 05/11/17 11:13 Blood Pressure 119/54 05/11/17 11:13 Pulse Oximetry 93 05/11/17 11:13 Height and Weight: Height 5 ft 1 in Weight 76.7 kg Body Mass Index 31.9 - Medications Inpatient Medications: Current Medications Albuterol Sulfate (Proventil Neb (0.083%)) 2.5 mg AEROSOL BID [facility] Last Admin: 05/11/17 04:54 Dose: 2.5 mg Bumetanide (Bumex Inj) 1 mg IVP BID [facility] Last Admin: 05/11/17 10:39 Dose: 1 mg Piperacillin Sod/Tazobactam (Sod 3.375 gm/ Sodium Chloride) 100 mls @ 200 mls/ hr IV Q6H [facility] Last Infusion: 05/11/17 05:11 Dose: Infused Vancomycin HCl 1,250 mg/ (Sodium Chloride) 250 mls @ 200 mls/hr IV Q18H [facility] Ondansetron HCl (Zofran) 4 mg IVP Q6H PRN PRN Reason: Nausea &/or vomiting Pantoprazole Sodium (Protonix Iv) 40 mg IVP Q12H [facility] Last Admin: 05/11/17 04:21 Dose: 40 mg Sodium Chloride (Iv Flush) 10 - 80 ml IVF PRN PRN PRN Reason: Flushing Last Admin: 05/11/17 04:21 Dose: 10 ml Sodium Chloride (Normal Saline) 500 ml IV PRN PRN Last Admin: 05/11/17 07:02 Dose: 500 ml Home Medications: Home Medications Medication Instructions Recorded Confirmed Type Albuterol Sulfate 2.5 mg IH BID #0 03/18/09 05/10/17 History Ascorbic Acid [Vitamin C] 500 mg PO DAILY #0 03/18/09 05/10/17 History Nitroglycerin [Nitrostat] 0.4 mg SL Q5MIN #0 03/18/09 05/10/17 History Levothyroxine Tab [Synthroid] 125 mcg PO ACB #0 01/05/14 05/10/17 History Pravastatin Sodium 40 mg PO HS #0 01/05/14 05/10/17 History Propranolol HCl 20 mg PO BID #0 01/05/14 05/10/17 History Potassium Chloride 20 meq PO WB #0 12/23/15 05/10/17 History Vitamin B Complex 1 tab PO DAILY #0 12/23/15 05/10/17 History Ferrous Sulfate [Feosol] 324 mg PO DAILY 05/10/17 05/10/17 History Levofloxacin [Levaquin] 500 mg PO DAILY 05/10/17 05/10/17 History Omeprazole 20 mg PO DAILY 05/10/17 05/10/17 History Palbociclib [Ibrance] 125 mg PO DAILY 05/10/17 05/10/17 History Torsemide [Torsemide] 10 mg PO DAILY 05/10/17 05/10/17 History Is Patient on Beta Poly?: Yes - Medical History Respiratory: Reports: Orthopnea, Pneumonia (in the past) Cardiovascular: Reports: Angina, Coronary Artery Disease, Heart Murmur, Hypertension, Valvular Heart Disease Gastrointestional: Reports: Gastroesophageal Reflux Disease (poorly controlled) Renal/Endocrine: Reports: Thyroid Disease - Surgical History HEENT Surgeries: Reports: Eye Surgery (BILATERAL CATARACTS REMOVED) Cardiac Surgeries/Treatments: Reports: Cardiac Catheterization GI Surgery/Treatments: Reports: Cholecystectomy Reproductive Surgery/Treatment: Reports: Lumpectomy (LEFT) Anesthesia Reactions: None Hx Family Anesthesia Reaction: No History of Motion Sickness: No - Social History Smoking Status: Former smoker Substance Use Type: does not use - Pertinent Findings EKG: Sinus Rhythm - Physical Exam Respiratory Exam: Present: wheezing (Minor Bilat), bilateral breath sounds equal Cardiovascular Exam: Present: regular rate and rhythm, systolic murmur (blowing) - Airway Assessment Mallampati Score: II TMD: 3 Fingerbreadths Neck Extension: fair Teeth: poor dentation Overall Assessment: no airway concerns - ASA ASA Score: 4, E - Plan Anesthesia: General TIVA - Discussion Discussion: Discussed risks/options/alternatives of anesthesia and questions answered. Patient consents. Nursing pain assessment noted. Present for Discussion: other (none) Attestation Statement: Prior to the delivery of any anesthetic medication, I examined the patient, developed the plan, obtained the patient's consent and discussed the risk and benefits of the procedure with the patient/guardian. - Additional Information Seen by Anesthesia: Yes
[2017-05-11] MEDS ORDERED: PROPOFOL 500 MG/50 ML VIAL IV ONE (11:44)
--- NOTE | 2017-05-11 11:53 | General Surgery Procedure Note ---
Date of Procedure: 05/11/17 Surgeon: Earnestine Postoperative Diagnosis: Anemia, hiatal hernia Procedure: EGD Estimated Blood Loss: See Anesthesia Record. Pathology: none sent
[2017-05-11] MEDS ORDERED: LR 1,000 ML IV SCH (12:45)
--- NOTE | 2017-05-11 12:59 | Anesthesia Postoperative Note ---
- Date and Time Date: 05/11/17 Time: 12:59 - Status Patient Participated in Evaluation: Patient Participated in Person Vital Signs: Temperature 97.5 F 05/11/17 12:43 Pulse Rate 67 05/11/17 12:43 Respiratory Rate 16 05/11/17 12:43 Blood Pressure 93/56 05/11/17 12:43 Pulse Oximetry 91 05/11/17 12:43 Respiratory Function: Airway Patent, Regular Respirations Cardiovascular Function: Regular Pulse Mental Status: Alert and Oriented Pain Intensity: 0 Hydration: IV Infusing Complications During Recover: None Apparent - Follow-Up Instructions Instructions: Per Surgeon
--- NOTE | 2017-05-11 17:58 | Consultation ---
DATE OF CONSULTATION 05/11/2017 FINDINGS Mrs. Casiano is an 87-year-old female whom I was asked to see as a result of her finding of anemia upon laboratory evaluation and her history for melanotic stools. Mrs. Casiano informs me that she has had a history for anemia in the past. She did share with me that she is suffering from lung cancer and is undergoing hormonal therapy by Dr. Hannon. I did question the patient in regards to "what brought her in the hospital." Patient informs me that it was her "gastroesophageal reflux disease symptoms" that brought her into the hospital. Upon further questioning the patient she states that she was feeling as if she was having some chest discomfort and severe heartburn. She became concerned that she may be having some "heart issues" and therefore presented to our facility for further care. Patient was not found to have any cardiac abnormalities following admission and a consult has been put forth to myself for further evaluation of her marked anemia and epigastric/chest discomfort. Upon questioning the patient she denies prior history for peptic ulcer disease but states that she has been told that she has a "nervous stomach". Patient states that her stools have been fairly dark recently and she has contributed this to "taking iron." This morning the patient denied much in the way of significant chest discomfort or epigastric discomfort. She did not appear to be in acute distress. Patient informs me that she has had "20 or more surgeries " throughout her life. PAST MEDICAL HISTORY, PAST SURGICAL HISTORY, MEDICATIONS, ALLERGIES, SOCIAL HISTORY, FAMILY HISTORY, REVIEW OF SYSTEMS Performed by my nurse practitioner, Kishan Cordova CRNA PHYSICAL EXAM GENERAL: Mrs. Casiano is an 87-year-old female who did not appear to be in acute distress. VITAL SIGNS: Temperature 97.9, pulse 75, respirations 16, blood pressure was 105/53. SAO2 92% on room air. HEENT: Normocephalic. Pupils are equally round and react to light and accommodation. CHEST: Clear to auscultation bilaterally. HEART: Auscultation does reveal a loud systolic ejection murmur best heard at the lower left sternal border. Rate was regular in nature. ABDOMEN: Palpation of the abdomen reveals it to be soft and nontender. I do not appreciate any evidence for hepatosplenomegaly nor abnormal masses. EXTREMITIES: Without clubbing, cyanosis, or edema. NEURO: Cranial nerves II-XII grossly intact. Patient is without focal motor or sensory deficits. LABORATORY/RADIOGRAPHIC EVALUATION The patient did have marked leukocytosis with a white count of 29.3. Hemoglobin was low at 6.8. Platelet count was normal 177,000. CMP was obtained and her sodium was 122, chloride 91. BNP was elevated at 6760. Troponin was normal at 0.024. My nurse practitioner was able to identify a prior EGD report from November 13, 2014 which was performed for anemia at that time. The patient was found to have some small gastric polyp, hiatal hernia. There was no blood noted within the GI tract at this time. The patient also had undergone a total colonoscopy on November 16, 2014 as a result of her anemia. The patient was found to have a couple of adenomatous colon polyps that were removed in their entirety endoscopically. ASSESSMENT 87-year-old female with history for lung cancer, history for anemia, who is found to be anemic upon admission with GI symptomatology consistent with gastroesophageal reflux disease/ possible peptic ulcer disease. PLAN I do not feel that she needs to have a repeat colonoscopy given the fact that she has had colonoscopy performed approximately two years ago. Given her recurrent progressive anemia in conjunction with her epigastric and lower chest discomfort, I would recommend that we go ahead and proceed with esophagogastroduodenoscopy for further evaluation. I did discuss with the patient what an EGD entailed and its associated risks which included but was not inclusive of bleeding and/or perforation. I agree with current management of this patient. She is being treated empirically for peptic ulcer disease on Protonix 40 mg IV q.12h. The patient also has begun on antibiotics empirically given her leukocytosis. [facility]
--- NOTE | 2017-05-11 18:17 | Operative Note ---
DATE OF SERVICE 05/11/2017 SURGEON Keenan Colby MD PREOPERATIVE DIAGNOSES Anemia, questionable history for melena, history for epigastric discomfort/ gastroesophageal reflux disease. POSTOPERATIVE DIAGNOSES Anemia, questionable history for melena, history for epigastric discomfort/ gastroesophageal reflux disease, hiatal hernia. PROCEDURE Esophagogastroduodenoscopy. ANESTHESIA TIVA BRIEF HISTORY/INDICATIONS Mrs. Casiano is an 87-year-old female who was recently admitted to our facility as a result of her history for GERD-like symptomatology in association with lower chest discomfort. The patient was found be quite anemic upon laboratory evaluation. The patient did undergo cardiac evaluation and her troponin was found be normal. The patient did have a history of having some dark stools but has been on some iron supplementation. The patient apparently also had hemoglobin recently that was 10.5. Today it was 6.5. As a result of the above indications it was recommended she undergo esophagogastroduodenoscopy for further evaluation. The patient's colon was cleared of adenomatous colon polyps approximately two years ago. Again for completeness please refer to consultation note included within the patient's chart. FINDINGS Upon upper endoscopy the patient was found to have about a 5-cm hiatal hernia. Otherwise, the esophagus, stomach and duodenum were within normal limits. NARRATIVE OF PROCEDURE After informed consent was obtained the patient was brought to the endoscopy suite and placed in left lateral decubitus position. Patient subsequently underwent total intravenous anesthesia by the nurse salesperson meats at my request. Formal time-out was then completed. Next, an Olympus gastroscope was inserted into the oral hypopharynx and subsequently the esophagus under direct visualization. Gastroscope was advanced through the esophagus, stomach, pylorus , duodenal bulb, second portion duodenum. Scope was slowly withdrawn. First and second portions of the duodenum were within normal limits. No evidence of duodenitis or ulcerations was noted. Scope was drawn back to the prepyloric region and antrum. Again, no marked mucosal abnormalities were noted. J- maneuver was performed. Cardia and fundus were within normal limits. Endoscopically, the patient was found have a moderate-sized hiatal hernia. Scope was allowed to straighten and was slowly withdrawn and the remaining corpus of the stomach was well visualized and again without marked abnormalities. There was no evidence for old blood upon the surface of the esophagus, stomach or duodenum to suggest recent GI bleed. Scope was drawn back to the level of the diaphragm which was about 40 cm from the incisors. Scope was withdrawn back to the squamocolumnar junction which was at 35 cm from the incisors, i.e., the patient had about a 5-cm hiatal hernia. Squamocolumnar junction was well demarcated. Endoscopically, there was no evidence for Fletcher 's metaplasia or distal esophagitis. Scope was slowly withdrawn and the remaining esophageal mucosa was found to be within normal limits. The patient tolerated the procedure without difficulty and will be sent back to the preop area once deemed in stable condition. ERIC
[2017-05-11] MEDS: ALBUTEROL 2.5mg/3ml (0.083%) NEB AEROSOL PRN (21:59)
[2017-05-12] MEDS: PIPERACILLIN/TAZOBACTAM 3.375 GM in NS 100 ML IV SCH ×4 (01:09→19:29)
[2017-05-12] MEDS: SALINE FLUSH 10ml SYRINGE IVF PRN ×3 (01:09→19:30)
[2017-05-12] MEDS: PANTOPRAZOLE 40 MG INJECTION IVP SCH (02:44)
[2017-05-12] MEDS: NS FLUSH BAG 500ml IV PRN (06:04)
[2017-05-12] MEDS: ALBUTEROL 2.5mg/3ml (0.083%) NEB AEROSOL SCH ×5 (07:47→20:29)
--- NOTE | 2017-05-12 10:35 | Echocardiogram ---
DATE OF SERVICE 05/11/2017 INDICATION Heart murmur, edema. TECHNICAL QUALITY Technically good 2-D, M-mode, Doppler echocardiographic images were submitted for interpretation. FINDINGS 1. CARDIAC CHAMBERS. Left atrium is dilated. All other cardiac chambers are normal in size. Left atrium measured 4.7 cm. 2. LEFT VENTRICLE. Concentric LVH is present. Wall thickness measured 19 mm in the posterior wall, 21 mm in the septal wall. Wall motion analysis shows hyperdynamic left ventricle. Ejection fraction measured 78%. Some crowding at the subvalvular level is noted without RAJAT appreciated. See comment below about LVOT Doppler. Diastolic dysfunction, grade II/IV, is present with E/A ratio 1.2, E/E' ratio of 19 (pseudonormal pattern). MVDT measured 387 milliseconds. 3. VALVES. Aortic valve is heavily calcified, open severely restricted. Mitral valve exhibits heavy annular calcification, especially posteriorly. Also extends anteriorly with some leaflet sclerosis. Valve opening is restricted to, visually, mild to moderate degree. Tricuspid valve structure and motion appear normal, normal valve excursion. 4. DOPPLER. Shows mild mitral regurgitation, mild aortic regurgitation, moderate tricuspid regurgitation. Peak flow velocity at the LVOT level with late peak 1.4 m/sec at rest, Valsalva was not performed, and peak flow velocity at the aortic valve level 5.7 m/sec with peak and mean pressure gradient of 130 and 65 mmHg. The calculated aortic valve area of 0.39 cm2 is based on LVOT diameter of 1.4 does not appear to be accurate. The valve stenosis, nevertheless , is critical, regardless. 5. No evidence of pericardial effusion, intracardiac masses or demonstrable shunts. IMPRESSION 1. Left atrial enlargement. 2. Marked concentric LVH. 3. Hyperdynamic left ventricle, EF of 78%. 4. Possible subaortic obstruction (suggested on the LVOT Doppler velocity signal morphology, although velocity remains within upper normal range at rest 1.4 m/sec). 5. Critical calcific aortic valve stenosis with a mean pressure gradient of 65 mmHg. 6. Mitral annular calcification with mild to moderate mitral stenosis (peak and mean pressure gradient of 13 and 4 mmHg). 7. Mild mitral regurgitation. 8. Mild aortic regurgitation. 9. Moderate tricuspid regurgitation. 10. Moderate pulmonary hypertension, systolic PA pressure estimated at 54 mmHg. 11. Diastolic dysfunction, grade II/IV (pseudonormal pattern). 12. IVC is not well seen on a limited subcostal view. RECOMMENDATION Cardiology consultation. Covering hospitalist was contacted with a report. MTDD
--- NOTE | 2017-05-12 12:13 | Progress Note ---
- Date 05/12/17 Subjective: Patient says she is feeling better. c/o not being able to sleep d/t GERD and being gassy. c/o choking on breakfast. Family is present. All questions answered. Objective Vital signs: Temperature 97.5 F 05/12/17 11:45 Pulse Rate 85 05/12/17 11:45 Respiratory Rate 16 05/12/17 11:45 Blood Pressure 102/56 05/12/17 11:45 Pulse Oximetry 91 05/12/17 11:45 Height/Weight/BMI: Height 5 ft 1 in Weight 76.2 kg Body Mass Index 31.9 - Constitutional Present: well nourished, well developed - Routine HEENT Exam Eye: Present: EOMI ENT: Present: mucous membranes moist, dentition normal - Routine Respiratory Exam Present: crackles - Routine Cardiovascular Exam Present: RRR, murmur - Routine Abdominal Exam Present: soft, normoactive bowel sounds, non distended. Absent: tenderness - Routine Extremities Exam Present: edema Comments: improved - Routine Neurological Exam Present: alert, oriented X3, CN II-XII intact - Routine Psychiatric Exam Present: normal affect Results - Labs CBC & Chem 7: 05/12/17 04:58 05/12/17 04:58 Microbiology Results: Microbiology 05/11/17 15:53 Sputum, Expectorated Gram Stain - Final 05/11/17 15:53 Sputum, Expectorated Sputum Culture - Preliminary Early growth Assessment and Plan (1) Anemia Current visit: Yes Status: Acute (2) Leukocytosis Current visit: Yes Status: Acute (3) Severe sepsis Current visit: Yes Status: Acute (4) Hypothyroid Current visit: Yes Status: Acute (5) Peripheral edema Current visit: Yes Status: Acute (6) Chest pain Current visit: Yes Status: Acute (7) GERD (gastroesophageal reflux disease) Current visit: Yes Status: Acute (8) Metastatic breast cancer Current visit: Yes Status: Acute (9) Asplenia Current visit: Yes Status: Acute Assessment and Plan: Sepsis, suspect pneumonia anemia with melena GERD breast cancer with mets to lung, bone hypoxemia asplenia leukocytosis hypothyroid hypervolemic hyponatremia? dysphagia weakness HFpEF aortic stenosis Will repeat CXR. Sputum with early growth. Blood cx with NGTD. WBC is down. Procalcitonin up to 0.14. Monitor. Continue Vanco, Zosyn. Continue to monitor hgb, transfuse if needed. Start iron. EGD was negative. Continue bid PPI, but change to oral, d/t frequent GERD sx. Echo shows significant valvular disease, diastolic dysfunction, moderate pulmonary HTN. Consulting Dr. Laguna. Holding palbociclib d/t infection. Consult ST d/t choking. May benefit from being up to chair for meals. Will ask PT/OT to see. Hospital Course Summary Disclaimer: Will repeat CXR. Sputum with early growth. Blood cx with NGTD. WBC is down. Procalcitonin up to 0.14. Monitor. Continue Vanco, Zosyn. Continue to monitor hgb, transfuse if needed. Start iron. EGD was negative. Continue bid PPI, but change to oral, d/t frequent GERD sx. Echo shows significant valvular disease, diastolic dysfunction, moderate pulmonary HTN. Consulting Dr. Laguna. Holding palbociclib d/t infection. Consult ST d/t choking. May benefit from being up to chair for meals. Will ask PT/OT to see.
[2017-05-12] MEDS ORDERED: LIDOCAINE VISCOUS 2% ORAL LIQUID 15ml ONE (15:00)
[2017-05-12] MEDS: FERROUS GLUCONATE 324 MG TABLET PO SCH (17:31)
[2017-05-12] MEDS: OMEPRAZOLE 20 MG CAPSULE PO SCH (17:31)
[2017-05-12] MEDS: PRAVASTATIN 40 MG TABLET PO SCH (20:13)
--- NOTE | 2017-05-12 22:49 | Cardiology Consult Note ---
History of Present Illness Consult reason: chest pain, shortness of breath History of present illness: 87 yo wf with CAD and who presented with worsening chest pressure with diaphoresis dyspnea LE edema . "they thought I was having a heart attack, I think it's all caused by gas build up as I try to make my self belch after meals" she feels gas pain in her belly is pushing against her chest and sometiome relieved after flatus. she also describes exertional angina. hs e's had a prior UT and ballooning twice and multiple heart caths. It's been years.Hs esees Tc Rico and cristofer.she says 20 yrs ago they advised her to have valve surgery "because of a heart murmur , but I wasn't emotionally ready" sh also had L mastecomy and chemo 5 yrs ago and remained in remmision/cured until 3 yrs ago when she was found to have lung mets on CXR she lives at home independently . since admission she feels that sh'e braeathing easier. she feels breathing ttreatm,ents help a lot. She hsas been coughing some yellow phlegm. she s treated with IV ATB ,IV diuresis and brochodilators. i was asked to see d/t critical on echocardiogram. LVEF was good Review of Systems All systems PM: 10-point ROS was reviewed, no additional remarkable complaints except - Constitutional Constitutional: Present: as per HPI - Cardiovascular Cardiovascular: Present: chest pain, dyspnea on exertion, edema. Absent: palpitations, syncope Rhythm: Present: regular rhythm - Respiratory Respiratory: Present: cough, dyspnea, dyspnea on exertion, wheezing, excessive phlegm production - Gastrointestinal Gastrointestinal: Present: abdominal pain - Neurological Neurological: Present: dizziness, weakness. Absent: abnormal movements, abnormal speech, confusion, focal weakness, frequent falls, loss of vision, memory loss - Psychiatric Psychiatric: Absent: anxiety, depression PFSH Patient Stated Medical History Cataracts Yes Other HEENT Yes: Legally blind-MD Angina Yes Congestive Heart Failure Yes: PT UNSURE Coronary Artery Disease Yes Heart Murmur Yes Hypertension Yes Hypotension Yes Myocardial Infarction Yes Valvular Heart Disease Yes Asthma Yes Pneumonia Yes: in the past Sleep Apnea No Other Respiratory Yes: Seasonal allergies Gastroesophageal Reflux Yes: poorly controlled Disease Hiatal Hernia Yes Hx Kidney Stones Yes Hx Urinary Tract Infection Yes Other Hematologic Yes: Daily 81mg ASA Osteoarthritis Yes Depression Yes Surgical History: L breast lumpectomy. Splenectomy s/p trauma - Social History Smoking status: Former smoker (would quit when she was . a pack lasted her a wk. never daily) Substance use type: does not use Alcohol intake frequency: does not drink Current residence: Apartment/Private Home Medications Home Medications Medication Instructions Recorded Confirmed Type Albuterol Sulfate 2.5 mg IH BID #0 03/18/09 05/10/17 History Ascorbic Acid [Vitamin C] 500 mg PO DAILY #0 03/18/09 05/10/17 History Nitroglycerin [Nitrostat] 0.4 mg SL Q5MIN #0 03/18/09 05/10/17 History Levothyroxine Tab [Synthroid] 125 mcg PO ACB #0 01/05/14 05/10/17 History Pravastatin Sodium 40 mg PO HS #0 01/05/14 05/10/17 History Propranolol HCl 20 mg PO BID #0 01/05/14 05/10/17 History Potassium Chloride 20 meq PO WB #0 12/23/15 05/10/17 History Vitamin B Complex 1 tab PO DAILY #0 12/23/15 05/10/17 History Ferrous Sulfate [Feosol] 324 mg PO DAILY 05/10/17 05/10/17 History Levofloxacin [Levaquin] 500 mg PO DAILY 05/10/17 05/10/17 History Omeprazole 20 mg PO DAILY 05/10/17 05/10/17 History Palbociclib [Ibrance] 125 mg PO DAILY 05/10/17 05/10/17 History Torsemide [Torsemide] 10 mg PO DAILY 05/10/17 05/10/17 History Allergies Allergy/AdvReac Type Severity Reaction Status Date / Time iodine Allergy Severe DIFFICULTY Verified 05/11/17 02:38 BREATHING Influenza Virus Vaccines Allergy Mild Rash Verified 05/11/17 07:47 venom-honey bee Allergy Unknown Verified 05/11/17 02:38 venom-wasp Allergy Unknown Verified 05/11/17 02:38 Exam Vital signs: Temperature 96.5 F L 05/12/17 20:46 Pulse Rate 93 05/12/17 20:46 Respiratory Rate 20 05/12/17 20:46 Blood Pressure 112/60 05/12/17 20:46 Pulse Oximetry 100 05/12/17 20:46 - Constitutional no acute distress, cooperative - Routine HEENT Exam Head: Present: normocephalic, atraumatic Eye: Present: EOMI, PERRL ENT: Present: mucous membranes moist - Routine Neck Exam Present: JVD (mild). Absent: normal carotid upstroke (decraesed), lymphadenopathy, thyromegaly - Routine Respiratory Exam Present: wheezes (B). Absent: rales - Routine Cardiovascular Exam Present: RRR, murmur (2/6 musical m late peaking .abscent A2) - Routine Abdominal Exam Present: soft, normoactive bowel sounds, non distended, non tender. Absent: organomegaly, mass - Routine Extremities Exam Present: edema (trace ankle edema B). Absent: cyanosis, clubbing - Routine Skin Exam Present: intact, dry, warm. Absent: cyanosis, erythema - Routine Neurological Exam Present: alert, oriented X3, CN II-XII intact, vision grossly intact, hearing grossly intact, normal speech. Absent: sensory deficit, motor deficit, facial asymmetry - Routine Psychiatric Exam Present: normal affect, normal thought process, cooperative, good insight, good judgment. Absent: depressed, anxious Results 05/12/17 04:58 05/12/17 04:58 CBC 05/12/17 Range/Units 04:58 WBC 20.9 H (4.5-11.0) T/MM3 RBC 2.27 L (4.00-5.20) M/MM3 Hgb 7.9 L (12-16) GM/DL Hct 25.1 L D (36-46) % Plt Count 195 (130-400) T/MM3 Comprehensive Metabolic Panel 05/12/17 Range/Units 04:58 Sodium 138 (134-144) MEQ/L Potassium 3.6 (3.6-5) MEQ/L Chloride 102 D (98-107) MEQ/L Carbon Dioxide 30 (22-30) MEQ/L BUN 10.0 (7-17) MG/DL Creatinine 0.9 D (0.7-1.2) MG/DL Glucose 92 (65-110) MG/DL Calcium 8.3 L (8.4-10.2) MG/DL Albumin 3.0 L (3.5-5.0) G/DL Intake and Output 05/12/17 05/12/17 05/12/17 06:59 14:59 22:59 Intake Total 425 / 425 740 / 740 218 / 218 Output Total 850 / 850 1200 / 1200 750 / 750 Balance -425 / -425 -460 / -460 -532 / -532 Intake: IV 100 / 100 450 / 450 100 / 100 Piperacillin/Tazobactam 3 100 / 100 200 / 200 100 / 100 .375 gm In Ns 100 ml @ 200 mls/hr IV Q6H FRANCES Rx# :[id number] Vancomycin 1,250 mg In NS 250 / 250 250ml 250 ml @ 200 mls/ hr IV Q18H FRANCES Rx#: [id number] Oral 325 / 325 290 / 290 118 / 118 Output: Urine 1200 / 1200 Urine Amount (Catheter) 850 / 850 750 / 750 Other: Urine Appearance Clear Clear Cloudy Urine Color [place] Pale Pale [place] Yellow Urine Odor Normal Stool Color Black Brown Stool Consistency Soft Formed Size of Bowel Movement Small Smear # Voids 1 # Bowel Movements 1 1 Weight 76.2 kg Patient Weight 05/13/17 06:59 Weight 76.2 kg - EKG Interpretation EKG: sinus rhythm, no acute changes EKG interpretations - EKG EKG results cardiology: sinus rhythm, no acute changes, not changed from: - Blocks, axis, hypertrophy, ST abn Chamber hypertrophy or enlargement: left ventricular hypertrophy or enlargement (LVE) Repolarization changes or abnormalities: repolarization abn secondary to ventricular hypertrophy Assessment and Plan - Assessment and Plan (1) Aortic stenosis, severe Current visit: Yes Status: Acute agree with Rx not a good surgical candidate ,d/t met cancer prognosis is poor d/t critical , constant threat to her life she verbelized understanding recommend to discuss DNR as it would be extremely unlikely for her to survive CPR/cardiac arrest consider hospice thank you d/w dr Stewart (2) Angina pectoris Current visit: Yes Status: Acute (3) Coronary arteriosclerosis after percutaneous transluminal coronary angioplasty (PTCA) Current visit: Yes Status: Acute (4) Metastatic breast cancer Current visit: Yes Status: Acute (5) Congestive heart failure due to valvular disease Current visit: Yes Status: Acute (6) GI (gastrointestinal bleed) Current visit: Yes Status: Acute (7) Pneumonia Current visit: Yes Status: Acute (8) Sepsis Current visit: Yes Status: Acute Hospital Course Summary Disclaimer: The visit summary below is not to be considered part of the above Progress Note.
[2017-05-12] MEDS: ALBUTEROL 2.5mg/3ml (0.083%) NEB AEROSOL PRN (23:55)
[2017-05-13] MEDS: PIPERACILLIN/TAZOBACTAM 3.375 GM in NS 100 ML IV SCH ×4 (02:10→19:36)
[2017-05-13] MEDS: ALBUTEROL 2.5mg/3ml (0.083%) NEB AEROSOL PRN (05:34)
[2017-05-13] MEDS: ALBUTEROL 2.5mg/3ml (0.083%) NEB AEROSOL SCH ×5 (07:31→22:28)
[2017-05-13] MEDS: FERROUS GLUCONATE 324 MG TABLET PO SCH ×2 (08:39→18:29)
[2017-05-13] MEDS: OMEPRAZOLE 20 MG CAPSULE PO SCH ×2 (08:40→18:29)
--- NOTE | 2017-05-13 10:19 | Progress Note ---
Progress Note: Brenda is seen today in follow up. She is up in the chair. Expresses frustration re: her current health. States that "3 weeks ago, I was mopping the floor and making pies. I will never be alone again." States that she has a very regimented self care routine at home. Is feeling that she does not have as much control here. She reports that her cancer is back and now in her lungs, states "My mind is all here. I don't want to ." She is able to give me a report re: her current cardiac status as well- "I need surgery, but I am not a surgical candidate." She is hoping to be able to return home and care for herself. She states that she has not been sleeping well, and finally got to sleep this am. She woke up choking "I was sure I was going to . I am now afraid to go to sleep." She states her symptoms are due to allergies, reports that she uses her "breathing machine and Vitamin C at home." She reports that her Batista is very painful for her. She cannot have a BM due to pain with bearing down. "The pain makes my heart hurt." "I can go to the bathroom by myself at home." She states "No one is listening to me." I spent quite some time with patient to allow her time to express her concerns. I d/w RN- ok with Lynne LOUISA. Pt. reports that she is having some anxiety here in the hospital, not a usual problem. I did offer a PRN for anxiety- she declined. "I have gone to hell and back in my life. I can deal with this too." Chart is reviewed for collateral information.
--- NOTE | 2017-05-13 10:23 | Progress Note ---
<DustyKrystina D - Last Filed: 05/13/17 10:20> - Date 05/13/17 Subjective: Brenda is seen today in follow up. She is up in the chair. Expresses frustration re: her current health. States that "3 weeks ago, I was mopping the floor and making pies. I will never be alone again." States that she has a very regimented self care routine at home. Is feeling that she does not have as much control here. She reports that her cancer is back and now in her lungs, states "My mind is all here. I don't want to ." She is able to give me a report re: her current cardiac status as well- "I need surgery, but I am not a surgical candidate." She is hoping to be able to return home and care for herself. She states that she has not been sleeping well, and finally got to sleep this am. She woke up choking "I was sure I was going to . I am now afraid to go to sleep." She states her symptoms are due to allergies, reports that she uses her "breathing machine and Vitamin C at home." She reports that her Batista is very painful for her. She cannot have a BM due to pain with bearing down. "The pain makes my heart hurt." "I can go to the bathroom by myself at home." She states "No one is listening to me." I spent quite some time with patient to allow her time to express her concerns. I d/w RN- ok with Lynne LOUISA. Pt. reports that she is having some anxiety here in the hospital, not a usual problem. I did offer a PRN for anxiety- she declined. "I have gone to hell and back in my life. I can deal with this too." Chart is reviewed for collateral information Objective Vital signs: Temperature 97.8 F 05/13/17 07:46 Pulse Rate 82 05/13/17 08:00 Respiratory Rate 20 05/13/17 07:46 Blood Pressure 100/68 05/13/17 07:46 Pulse Oximetry 97 05/13/17 07:46 Height/Weight/BMI: Height 1.55 m Weight 76.2 kg Body Mass Index 31.9 - Constitutional Present: no acute distress, well nourished, average body habitus, cooperative - Routine HEENT Exam Head: Present: normocephalic, atraumatic Eye: Present: EOMI, PERRL, normal accommodation. Absent: conjunctival icterus ENT: Present: mucous membranes moist - Routine Respiratory Exam Present: decreased breath sounds, rhonchi (Bilateral bases, faint. ), diminished air movement - Routine Cardiovascular Exam Present: RRR, S1, S2, murmur (Prominent A.S. ) - Routine Abdominal Exam Present: soft, normoactive bowel sounds, non distended, non tender - Routine Exam Comments: Batista cath in place. - Routine Extremities Exam Present: edema, tenderness (TTP bilateral LE. ). Absent: cyanosis, clubbing - Routine Musculoskeletal Exam Musculoskeletal: Present: no clubbing or cyanosis, moving extremities well - Routine Skin Exam Present: intact, dry, pallor (Mildly pale. ), warm - Routine Neurological Exam Present: alert, oriented X3, moving all extremities, normal speech. Absent: facial asymmetry - Routine Psychiatric Exam Present: normal affect, normal thought process, good insight, good judgment, anxious Results - Labs CBC & Chem 7: 05/13/17 04:11 05/13/17 04:11 Microbiology Results: Microbiology 05/11/17 15:53 Sputum, Expectorated Gram Stain - Final 05/11/17 15:53 Sputum, Expectorated Sputum Culture - Final Normal Respiratory Holly Present - Imaging and Cardiology Chest x-ray Status: image reviewed by me, pending (Mild bilateral pulmonary edema. ) Assessment and Plan (1) Anemia Current visit: Yes Status: Acute (2) Leukocytosis Current visit: Yes Status: Acute (3) Severe sepsis Current visit: Yes Status: Acute (4) Hypothyroid Current visit: Yes Status: Acute (5) Peripheral edema Current visit: Yes Status: Acute (6) Chest pain Current visit: Yes Status: Acute (7) GERD (gastroesophageal reflux disease) Current visit: Yes Status: Acute (8) Metastatic breast cancer Current visit: Yes Status: Acute (9) Asplenia Current visit: Yes Status: Acute (10) Aortic stenosis, severe Current visit: Yes Status: Acute (11) Congestive heart failure due to valvular disease Current visit: Yes Status: Acute (12) Hyponatremia Current visit: Yes Status: Acute (13) Hypokalemia Current visit: Yes Status: Acute Assessment and Plan: Sepsis, suspect pneumonia anemia with melena GERD breast cancer with mets to lung, bone hypoxemia asplenia leukocytosis hypothyroid hypervolemic hyponatremia? dysphagia weakness HFpEF aortic stenosis Hypokalemia Plan: 05/13/17 She continues to slowly improve. Persistent cough, with choking- Likely multifactorial. Continue Nebs, PPI BID, Abx. ST consult. Restart Vit C at pt. request. Continue fluid management; holding diuretics as BP is lower, mildly dry on labs - start daily oral Lasix in AM. She does continue to have some peripheral edema- monitor. Will start Bladder training and remove later today. D/W RN. Replace KCL today and recheck in AM. HGB is a bit lower today. FOB +. EGD normal. Continue to monitor. Higher risk for any surgical procedures. PT/OT consult. Home meds reviewed. Restart Synthroid. Check TSH. Will need assistance with DC planning- HH vs. inpt. recovery. DVT Prophylaxis: SCD's GI Prophylaxis: other (PPI BID) Resuscitation Status: Full Code - Time spent with patient Time with patient PN: 35 minutes Coordination of Care: >50% of visit spent providing counseling/coordination of care Hospital Course Summary Disclaimer: The visit summary below is not to be considered part of the above Progress Note. Hospital Course: 05/13/17 10:34 She continues to slowly improve. Persistent cough, with choking- Likely multifactorial. Continue Nebs, PPI BID, Abx. ST consult. Restart Vit C at pt. request. Continue fluid management; holding diuretics as BP is lower, mildly dry on labs - start daily oral Lasix in AM. She does continue to have some peripheral edema- monitor. Will start Bladder training and remove later today. D/W RN. Replace KCL today and recheck in AM. HGB is a bit lower today. FOB +. EGD normal. Continue to monitor. Higher risk for any surgical procedures. PT/OT consult. Home meds reviewed. Restart Synthroid. Check TSH. Will need assistance with DC planning- HH vs. inpt. recovery. <Dean Stewart IV - Last Filed: 05/13/17 15:57> - Date 05/13/17 Objective Vital signs: Temperature 97.7 F 05/13/17 15:12 Pulse Rate 100 05/13/17 15:12 Respiratory Rate 20 05/13/17 15:12 Blood Pressure 113/64 05/13/17 15:12 Pulse Oximetry 96 05/13/17 15:12 Height/Weight/BMI: Height 5 ft 1 in Weight 76.2 kg Body Mass Index 31.9 Results - Labs CBC & Chem 7: 05/13/17 04:11 05/13/17 04:11 Microbiology Results: Microbiology 05/11/17 15:53 Sputum, Expectorated Gram Stain - Final 05/11/17 15:53 Sputum, Expectorated Sputum Culture - Final Normal Respiratory Holly Present Assessment and Plan (1) Anemia Current visit: Yes Status: Acute (2) Leukocytosis Current visit: Yes Status: Acute (3) Severe sepsis Current visit: Yes Status: Acute (4) Hypothyroid Current visit: Yes Status: Acute (5) Peripheral edema Current visit: Yes Status: Acute (6) Chest pain Current visit: Yes Status: Acute (7) GERD (gastroesophageal reflux disease) Current visit: Yes Status: Acute (8) Metastatic breast cancer Current visit: Yes Status: Acute (9) Asplenia Current visit: Yes Status: Acute (10) Hyponatremia Current visit: Yes Status: Acute (11) Aortic stenosis, severe Current visit: Yes Status: Acute (12) Congestive heart failure due to valvular disease Current visit: Yes Status: Acute (13) Hypokalemia Current visit: Yes Status: Acute Assessment and Plan: I have independently interviewed and examined the patient. I have reviewed the medical record. The plan has been discussed and formulated with [employer] as above with the additions below. Patient's son is present. She says she has been sad today b/c of the realization of her health problems. She knows she has a bad heart and that her cancer is in the lung, but she was unable to talk about goals of care (DNR, hospice) other than going home. She says she woke up soa and felt like she was going to . She thinks she would have been OK b/c she keeps her nebulizer by her bed. Lungs diminished with few crackles. Heart regular with murmur. Edema present. Suspect pulmonary source of sepsis, but no source identified. WBC is trending down. Continue Vanco and Zosyn. Will avoid aggressive diuresis given critical . d/w Dr. Laguna. Appreciate his input. Will give patient time to consider hospice and/or DNR. Supplementing K. TSH elevated. fT4 pending. May need to increase Synthroid. Hospital Course Summary Disclaimer: The visit summary below is not to be considered part of the above Progress Note. Hospital Course: 05/13/17 15:57 Suspect pulmonary source of sepsis, but no source identified. WBC is trending down. Continue Vanco and Zosyn. Will avoid aggressive diuresis given critical . d/w Dr. Laguna. Appreciate his input. Will give patient time to consider hospice and/or DNR. Supplementing K. TSH elevated. fT4 pending. May need to increase Synthroid.
[2017-05-13] MEDS: ASCORBIC ACID 500 MG TABLET PO SCH (10:57)
--- NOTE | 2017-05-13 10:58 | XRay Report ---
INDICATION: pneumonia PROCEDURE: CHEST 2-VIEWS UPRIGHT (PA & LAT) Encounter: Initial COMPARISON: May 10, 2017 FINDINGS: Small bilateral pleural effusions and bibasilar airspace disease are unchanged. Emphysema and hyperinflation. No pneumothorax. Heart size and mediastinal contours are stable. Pulmonary vascularity is stable. Impression: Stable pleural effusions and lower lobe airspace disease. .
[2017-05-13] MEDS: PRAVASTATIN 40 MG TABLET PO SCH (20:26)
[2017-05-14] MEDS: PIPERACILLIN/TAZOBACTAM 3.375 GM in NS 100 ML IV SCH ×4 (01:19→18:01)
[2017-05-14] MEDS: ALBUTEROL 2.5mg/3ml (0.083%) NEB AEROSOL PRN (02:10)
[2017-05-14] MEDS ORDERED: LEVOTHYROXINE 125 MCG TABLET PO SCH (06:30)
[2017-05-14] MEDS: ALBUTEROL 2.5mg/3ml (0.083%) NEB AEROSOL SCH ×4 (07:41→21:10)
[2017-05-14] MEDS: ASCORBIC ACID 500 MG TABLET PO SCH (09:05)
[2017-05-14] MEDS: FERROUS GLUCONATE 324 MG TABLET PO SCH ×2 (09:05→18:30)
[2017-05-14] MEDS: FUROSEMIDE 40 MG TABLET PO SCH ×2 (09:05→09:06)
[2017-05-14] MEDS: OMEPRAZOLE 20 MG CAPSULE PO SCH ×2 (09:05→17:10)
--- NOTE | 2017-05-14 11:07 | Pharmacy Consult-Antibiotics ---
Pharmacy Consult-Vancomycin - Laboratory Information WBC 9.7 T/MM3 (4.5-11.0) 05/14/17 04:39 BUN 9.0 MG/DL (7-17) 05/14/17 04:39 Creatinine 0.8 MG/DL (0.7-1.2) 05/14/17 04:39 Procalcitonin 0.13 NG/ML 05/13/17 04:11 Vancomycin Trough 12.84 UG/ML (15-20) L 05/13/17 17:22 - Consult Information VANCOMYCIN CONSULT: Vancomycin Trough = 12.84 mcg/ml. Today's SCr = 0.8 mg/dl. Will give Vancomycin 1,000 mg IV q12hrs. Vancomycin trough level expected to be around 18 with new dose. Will continue to monitor and make adjustments accordingly. Thank you.
--- NOTE | 2017-05-14 15:41 | Progress Note ---
- Date 05/14/17 Subjective: Brenda is up to her chair with some friends visiting. She is on RA and says her breathing is improved. Does not express a preference when DNR/Full Code is discussed again today. No overnight events. Objective Vital signs: Temperature 96.8 F 05/14/17 11:45 Pulse Rate 89 05/14/17 11:45 Respiratory Rate 22 05/14/17 15:28 Blood Pressure 118/61 05/14/17 11:45 Pulse Oximetry 95 05/14/17 15:28 Height/Weight/BMI: Height 5 ft 1 in Weight 76.2 kg Body Mass Index 31.9 - Constitutional Present: well nourished, well developed - Routine HEENT Exam Eye: Present: EOMI ENT: Present: mucous membranes moist, dentition normal - Routine Respiratory Exam Present: rhonchi, wheezes, diminished air movement. Absent: accessory muscle use - Routine Cardiovascular Exam Present: RRR. Absent: murmur - Routine Abdominal Exam Present: soft, normoactive bowel sounds, non distended. Absent: tenderness - Routine Extremities Exam Present: edema. Absent: cyanosis, clubbing - Routine Neurological Exam Present: alert, oriented X3, CN II-XII intact - Routine Psychiatric Exam Present: normal affect Results - Labs CBC & Chem 7: 05/14/17 04:39 05/14/17 04:39 Microbiology Results: Microbiology 05/11/17 15:53 Sputum, Expectorated Gram Stain - Final 05/11/17 15:53 Sputum, Expectorated Sputum Culture - Final Normal Respiratory Holly Present Assessment and Plan (1) Anemia Current visit: Yes Status: Acute (2) Leukocytosis Current visit: Yes Status: Acute (3) Severe sepsis Current visit: Yes Status: Acute (4) Hypothyroid Current visit: Yes Status: Acute (5) Peripheral edema Current visit: Yes Status: Acute (6) Chest pain Current visit: Yes Status: Acute (7) GERD (gastroesophageal reflux disease) Current visit: Yes Status: Acute (8) Metastatic breast cancer Current visit: Yes Status: Acute (9) Asplenia Current visit: Yes Status: Acute (10) Hyponatremia Current visit: Yes Status: Acute (11) Aortic stenosis, severe Current visit: Yes Status: Acute (12) Congestive heart failure due to valvular disease Current visit: Yes Status: Acute (13) Hypokalemia Current visit: Yes Status: Acute Assessment and Plan: Sepsis, suspect pneumonia anemia with melena GERD breast cancer with mets to lung, bone hypoxemia asplenia leukocytosis hypothyroid hypervolemic hyponatremia? dysphagia weakness HFpEF aortic stenosis Hypokalemia Suspect pulmonary source of sepsis, but no source identified. WBC is trending down. Continue Vanco and Zosyn. Day 4 of abx. Will avoid aggressive diuresis given critical . d/w Dr. Laguna. Appreciate his input. Patient not inclined to have DNR. Increase K. TSH elevated and fT4 is low, increase Synthroid. Palbociclib on hold d/t infection. Hospital Course Summary Disclaimer: The visit summary below is not to be considered part of the above Progress Note. Hospital Course: 05/13/17 15:57 Suspect pulmonary source of sepsis, but no source identified. WBC is trending down. Continue Vanco and Zosyn. Will avoid aggressive diuresis given critical . d/w Dr. Laguna. Appreciate his input. Will give patient time to consider hospice and/or DNR. Supplementing K. TSH elevated. fT4 pending. May need to increase Synthroid. 05/14/17 15:57 Sepsis, suspect pneumonia anemia with melena GERD breast cancer with mets to lung, bone hypoxemia asplenia leukocytosis hypothyroid hypervolemic hyponatremia? dysphagia weakness HFpEF aortic stenosis Hypokalemia Suspect pulmonary source of sepsis, but no source identified. WBC is trending down. Continue Vanco and Zosyn. Day 4 of abx. Will avoid aggressive diuresis given critical . d/w Dr. Laguna. Appreciate his input. Patient not inclined to have DNR. Increase K. TSH elevated and fT4 is low, increase Synthroid. Palbociclib on hold d/t infection.
[2017-05-14] MEDS: SALINE FLUSH 10ml SYRINGE IVF PRN ×2 (20:36→23:19)
[2017-05-14] MEDS: PRAVASTATIN 40 MG TABLET PO SCH (20:36)
--- NOTE | 2017-05-14 21:04 | Cardiology Progress Note ---
Subjective Interval history: Brenda is feeling better she can breathe much easier. She's been walking around she did either angina or shortness of breath and stops and feels better quickly I discussed with her the echocardiogram findings in detail. Telemetry shows normal sinus rhythm Weight vital signs CATARINO's labs and meds reviewed in detail plan as discussed with the nurse and the patient Exam Vital signs: Temperature 98.2 F 05/14/17 20:52 Pulse Rate 90 05/14/17 20:52 Respiratory Rate 22 05/14/17 20:52 Blood Pressure 107/65 05/14/17 20:52 Pulse Oximetry 97 05/14/17 20:52 - Constitutional no acute distress - Routine HEENT Exam Head: Present: normocephalic, atraumatic Eye: Present: EOMI ENT: Present: mucous membranes moist - Routine Neck Exam Present: JVD (mild). Absent: normal carotid upstroke - Routine Respiratory Exam Present: prolonged expiratory phase, wheezes (few ) - Routine Cardiovascular Exam Present: RRR, murmur ( murmur) - Routine Abdominal Exam Present: soft, normoactive bowel sounds, non distended, non tender. Absent: organomegaly - Routine Extremities Exam Present: edema (mild bilateral ankle edema), pulses intact, normal capillary refill. Absent: cyanosis, clubbing - Routine Skin Exam Present: intact, cyanosis. Absent: erythema - Routine Neurological Exam Present: alert, oriented X3, CN II-XII intact, motor deficit, moving all extremities, vision grossly intact, hearing grossly intact, normal speech. Absent: facial asymmetry - Routine Psychiatric Exam Present: normal affect, normal thought process, cooperative, good insight, good judgment - Urinary Catheter Management Urethral Cath placed during this visit: yes, but has since been removed by the nurse Insertion date: 05/11/17 Insertion time: 03:45 Removal date: 05/13/17 Removal time: 14:30 Assessment and Plan - Assessment and Plan (1) Aortic stenosis, severe Current visit: Yes Status: Acute (2) Angina pectoris Current visit: Yes Status: Acute (3) Coronary arteriosclerosis after percutaneous transluminal coronary angioplasty (PTCA) Current visit: Yes Status: Acute (4) Metastatic breast cancer Current visit: Yes Status: Acute (5) Congestive heart failure due to valvular disease Current visit: Yes Status: Acute (6) GI (gastrointestinal bleed) Current visit: Yes Status: Acute (7) Pneumonia Current visit: Yes Status: Acute (8) Sepsis Current visit: Yes Status: Acute - Assessment and Plan I discussed with the patient had a diagnosis prognosis and natural history of symptomatic severe aortic valve stenosis. Unfortunately her prognosis is quite poor. She is not a good surgical candidate due to metastatic cancer. I discussed with her CODE STATUS although she initially appeared open to the DO NOT RESUSCITATE ,as she contemplated more and stopped her nurse she asked that she and remains FULL CODE for for now. It is highly unlikely, that she could be successfully resuscitated out of a cardiac arrest with her critical aortic stenosis and at her age. We are going to respect her wishes obviously. Continue gentle diuresis she switched to by mouth Lasix monitor I&O's weight and basic blood profile also closely monitor her blood pressure to avoid hypotension. She has been running relatively low but has remained stable and asymptomatic and more or less expected as we achieve better volume status with underlying critical aortic stenosis limiting her cardiac output and thus running lower blood pressures in the 90s 100s would be acceptable as well as she remains asymptomatic from that standpoint. Hospital Course Summary Disclaimer: The visit summary below is not to be considered part of the above Progress Note. Hospital Course: 05/13/17 15:57 Suspect pulmonary source of sepsis, but no source identified. WBC is trending down. Continue Vanco and Zosyn. Will avoid aggressive diuresis given critical . d/w Dr. Laguna. Appreciate his input. Will give patient time to consider hospice and/or DNR. Supplementing K. TSH elevated. fT4 pending. May need to increase Synthroid. 05/14/17 15:57 Sepsis, suspect pneumonia anemia with melena GERD breast cancer with mets to lung, bone hypoxemia asplenia leukocytosis hypothyroid hypervolemic hyponatremia? dysphagia weakness HFpEF aortic stenosis Hypokalemia Suspect pulmonary source of sepsis, but no source identified. WBC is trending down. Continue Vanco and Zosyn. Day 4 of abx. Will avoid aggressive diuresis given critical . d/w Dr. Laguna. Appreciate his input. Patient not inclined to have DNR. Increase K. TSH elevated and fT4 is low, increase Synthroid. Palbociclib on hold d/t infection.
[2017-05-14] MEDS: NS FLUSH BAG 500ml IV PRN (23:19)
[2017-05-15] MEDS: PIPERACILLIN/TAZOBACTAM 3.375 GM in NS 100 ML IV SCH ×4 (01:54→20:18)
[2017-05-15] MEDS: ALBUTEROL 2.5mg/3ml (0.083%) NEB AEROSOL PRN (02:55)
[2017-05-15] MEDS: LEVOTHYROXINE 137 MCG TABLET PO SCH (06:13)
[2017-05-15] MEDS: ALBUTEROL 2.5mg/3ml (0.083%) NEB AEROSOL SCH ×4 (06:52→20:25)
[2017-05-15] MEDS: SALINE FLUSH 10ml SYRINGE IVF PRN ×2 (07:27→20:18)
[2017-05-15] MEDS: FUROSEMIDE 40 MG TABLET PO SCH (08:11)
[2017-05-15] MEDS: OMEPRAZOLE 20 MG CAPSULE PO SCH ×2 (08:13→18:12)
[2017-05-15] MEDS: ASCORBIC ACID 500 MG TABLET PO SCH (08:13)
[2017-05-15] MEDS: FERROUS GLUCONATE 324 MG TABLET PO SCH ×2 (08:13→18:12)
--- NOTE | 2017-05-15 11:56 | Progress Note ---
- Date 05/15/17 Subjective: F/U: Sepsis, pneumonia, Severe Doing okay. Breathing improving but still notes cough and congestion. Feels SOA at times. No pain with breathing. Eating well-denies pain with swallow or ab pain. Reports reflux intermittently. Bowels moving. No f/c. Objective Vital signs: Temperature 97.5 F 05/15/17 07:39 Pulse Rate 87 05/15/17 07:39 Respiratory Rate 16 05/15/17 10:15 Blood Pressure 116/65 05/15/17 07:39 Pulse Oximetry 100 05/15/17 11:22 Height/Weight/BMI: Height 1.55 m Weight 78.5 kg Body Mass Index 31.9 - Constitutional Present: well nourished, well developed, obese, cooperative - Routine HEENT Exam Head: Present: normocephalic, atraumatic Eye: Present: EOMI, PERRL ENT: Present: mucous membranes moist - Routine Respiratory Exam Present: decreased breath sounds. Absent: rales, respiratory distress, rhonchi , wheezes, crackles - Routine Cardiovascular Exam Present: RRR, murmur - Routine Abdominal Exam Present: soft, non distended, non tender. Absent: guarding - Routine Extremities Exam Present: cyanosis, clubbing, edema (+2 BLE) - Routine Musculoskeletal Exam Musculoskeletal: Present: no clubbing or cyanosis, normal strength - Routine Skin Exam Present: dry, warm - Routine Neurological Exam Present: alert, oriented X3, CN II-XII intact, moving all extremities, vision grossly intact, hearing grossly intact. Absent: altered mental status - Routine Psychiatric Exam Present: normal affect, normal thought process, cooperative Results - Labs CBC & Chem 7: 05/15/17 04:31 05/15/17 04:31 Microbiology Results: Microbiology 05/11/17 15:53 Sputum, Expectorated Gram Stain - Final 05/11/17 15:53 Sputum, Expectorated Sputum Culture - Final Normal Respiratory Holly Present Assessment and Plan (1) Severe sepsis Current visit: Yes Status: Acute (2) Leukocytosis Current visit: Yes Status: Acute (3) Anemia Current visit: Yes Status: Acute (4) Hypothyroid Current visit: Yes Status: Acute (5) Peripheral edema Current visit: Yes Status: Acute (6) Chest pain Current visit: Yes Status: Acute (7) GERD (gastroesophageal reflux disease) Current visit: Yes Status: Acute (8) Metastatic breast cancer Current visit: Yes Status: Acute (9) Asplenia Current visit: Yes Status: Acute (10) Hyponatremia Current visit: Yes Status: Acute (11) Congestive heart failure due to valvular disease Current visit: Yes Status: Acute (12) Aortic stenosis, severe Current visit: Yes Status: Acute (13) Hypokalemia Current visit: Yes Status: Acute Assessment and Plan: Assessment Sepsis (POA) - suspect secondary to pneumonia Pneumonia Leukocytosis (POA) - resolved anemia with melena - Transfusion 1 unit pRBC 05/11/17 GERD - Hiatal Hernia found on EGD Breast cancer with mets to lung, bone Hypoxemia Asplenia Hypothyroid Hypervolemic hyponatremia (POA) - resolved Dysphagia Weakness CHF secondary to valvular heart disease Severe aortic stenosis CAD Hypokalemia (Not POA) - secondary to diuretics Obesity with BMI 32.7 Plan Continue Vancomycin and Zosyn for pulmonary coverage - Day #5. Recheck CXR tomorrow to assess pulmonary effusions. Wean O2 - maintaining saturations well on low flow O2 (mainly using for patient comfort). Start Mucinex DM BID to help decrease cough and congestion. Continue Lasix to help diuresis. Additional oral potassium of 10mEq today at noon as potassium decreased to 3.3. Encourage activities. Potentially discharge in near future if patient continues to make gains. Case discussed with CM. Time spent with patient care 35 minutes. DVT Prophylaxis: SCD's GI Prophylaxis: other (Omeprazole for GERD) Resuscitation Status: Full Code Hospital Course Summary Disclaimer: The visit summary below is not to be considered part of the above Progress Note. Hospital Course: Assessment Suspect pulmonary source of sepsis, but no source identified. WBC is trending down. Continue Vanco and Zosyn. Will avoid aggressive diuresis given critical . d/w Dr. Laguna. Appreciate his input. Will give patient time to consider hospice and/or DNR. Supplementing K. TSH elevated. fT4 pending. May need to increase Synthroid. 05/14/17 15:57 Sepsis, suspect pneumonia anemia with melena GERD breast cancer with mets to lung, bone hypoxemia asplenia leukocytosis hypothyroid hypervolemic hyponatremia? dysphagia weakness HFpEF aortic stenosis Hypokalemia 05/11/17 Transfusing patient 1 unit PRBCs. She is npo. PPI bid. c/s Dr. Kinney. Continue vanco and zosyn for sepsis. Blood cx pending. Possible pulmonary source. Repeat procalcitonin. Will add diuretics and obtain an echo with elevated BNP and murmur 05/12/17 Will repeat CXR. Sputum with early growth. Blood cx with NGTD. WBC is down. Procalcitonin up to 0.14. Monitor. Continue Vanco, Zosyn. Continue to monitor hgb, transfuse if needed. Start iron. EGD was negative. Continue bid PPI, but change to oral, d/t frequent GERD sx. Echo shows significant valvular disease, diastolic dysfunction, moderate pulmonary HTN. Consulting Dr. Laguna. Holding palbociclib d/t infection. Consult ST d/t choking. May benefit from being up to chair for meals. Will ask PT/OT to see. 05/13/17 She continues to slowly improve. Persistent cough, with choking- Likely multifactorial. Continue Nebs, PPI BID, Abx. ST consult. Restart Vit C at pt. request. Continue fluid management; holding diuretics as BP is lower, mildly dry on labs - start daily oral Lasix in AM. She does continue to have some peripheral edema- monitor. Will start Bladder training and remove later today. D/W RN. Replace KCL today and recheck in AM. HGB is a bit lower today. FOB +. EGD normal. Continue to monitor. Higher risk for any surgical procedures. PT/OT consult. Home meds reviewed. Restart Synthroid. Check TSH. Will need assistance with DC planning- HH vs. inpt. recovery. 05/14/17 Suspect pulmonary source of sepsis, but no source identified. WBC is trending down. Continue Vanco and Zosyn. Day 4 of abx. Will avoid aggressive diuresis given critical . d/w Dr. Laguna. Appreciate his input. Patient not inclined to have DNR. Increase K. TSH elevated and fT4 is low, increase Synthroid. Palbociclib on hold d/t infection. 05/15/17 Continue Vancomycin and Zosyn for pulmonary coverage - Day #5. Recheck CXR tomorrow to assess pulmonary effusions. Wean O2 - maintaining saturations well on low flow O2 (mainly using for patient comfort). Start Mucinex DM BID to help decrease cough and congestion. Continue Lasix to help diuresis. Additional oral potassium of 10mEq today at noon as potassium decreased to 3.3. Encourage activities. Potentially discharge in near future if patient continues to make gains.
[2017-05-15] MEDS: GUAIFENESIN/D-METHORPHAN 600mg/30mg TABLET PO SCH ×2 (12:12→20:23)
--- NOTE | 2017-05-15 12:52 | Pharmacy Consult-Antibiotics ---
Pharmacy Consult-Vancomycin - Laboratory Information WBC 7.5 T/MM3 (4.5-11.0) 05/15/17 04:31 BUN 9.0 MG/DL (7-17) 05/15/17 04:31 Creatinine 0.7 MG/DL (0.7-1.2) 05/15/17 04:31 Procalcitonin < 0.05 NG/ML 05/15/17 04:31 Vancomycin Trough 17.35 UG/ML (15-20) 05/15/17 11:32 - Consult Information VANCOMYCIN CONSULT: Vancomycin Trough = 17.35 mcg/ml. Today's SCr = 0.7 mg/dl. Will continue to give Vancomycin 1,000 mg IV q12hrs. Will continue to monitor and make adjustments accordingly. Thank you.
[2017-05-15] MEDS: SALINE 0.65% NASAL SPRAY 44 ML BOTTLE EA NOSTRIL SCH ×3 (14:00→20:23)
[2017-05-15] MEDS: PRAVASTATIN 40 MG TABLET PO SCH (20:23)
--- NOTE | 2017-05-15 22:00 | Cardiology Progress Note ---
Subjective Interval history: Brenda is feeling better. Has been up to the bathroom. She is happy that her oxygen been tapered down. Suggests short of breath as well as chest tightness she tries to hurry. Coughing up some bloody phlegm as well Telemetry shows normal sinus rhythm Weight vital signs I/O's labs and meds reviewed in detail plan as discussed with the nurse and the patient Weight is up. Potassium is low and being replaced. She is on by mouth Lasix Exam Vital signs: Temperature 97.3 F 05/15/17 20:00 Pulse Rate 97 05/15/17 20:00 Respiratory Rate 18 05/15/17 20:25 Blood Pressure 112/64 05/15/17 20:00 Pulse Oximetry 97 05/15/17 20:25 - Constitutional no acute distress - Routine HEENT Exam Head: Present: normocephalic, atraumatic Eye: Present: EOMI, PERRL ENT: Present: mucous membranes moist - Routine Neck Exam Present: JVD (mild) - Routine Respiratory Exam Present: wheezes (bilaterally). Absent: rales - Routine Cardiovascular Exam Present: RRR, murmur (3/6 harsh murmur late peaking with essentially absent A2) - Routine Abdominal Exam Present: soft, normoactive bowel sounds, non distended, non tender. Absent: organomegaly - Routine Extremities Exam Present: edema, pulses intact (dense 1+ edema bilaterally ,quite tender to touch ), normal capillary refill. Absent: cyanosis, clubbing - Routine Skin Exam Present: intact, dry. Absent: cyanosis, erythema - Routine Neurological Exam Present: alert, oriented X3, CN II-XII intact, moving all extremities, vision grossly intact, hearing grossly intact, normal speech. Absent: motor deficit, facial asymmetry - Routine Psychiatric Exam Present: normal affect, cooperative, good insight, good judgment - Urinary Catheter Management Urethral Cath placed during this visit: yes, but has since been removed by the nurse Insertion date: 05/11/17 Insertion time: 03:45 Removal date: 05/13/17 Removal time: 14:30 Assessment and Plan - Assessment and Plan (1) Aortic stenosis, severe Current visit: Yes Status: Acute (2) Angina pectoris Current visit: Yes Status: Acute (3) Coronary arteriosclerosis after percutaneous transluminal coronary angioplasty (PTCA) Current visit: Yes Status: Acute (4) Metastatic breast cancer Current visit: Yes Status: Acute (5) Congestive heart failure due to valvular disease Current visit: Yes Status: Acute Weight is up additional diuresis is needed, still gently given her a . also recheck a chest x-ray in the morning to help guide further diuresis (6) GI (gastrointestinal bleed) Current visit: Yes Status: Acute (7) Pneumonia Current visit: Yes Status: Acute (8) Sepsis Current visit: Yes Status: Acute Hospital Course Summary Disclaimer: The visit summary below is not to be considered part of the above Progress Note. Hospital Course: Assessment Suspect pulmonary source of sepsis, but no source identified. WBC is trending down. Continue Vanco and Zosyn. Will avoid aggressive diuresis given critical . d/w Dr. Laguna. Appreciate his input. Will give patient time to consider hospice and/or DNR. Supplementing K. TSH elevated. fT4 pending. May need to increase Synthroid. 05/14/17 15:57 Sepsis, suspect pneumonia anemia with melena GERD breast cancer with mets to lung, bone hypoxemia asplenia leukocytosis hypothyroid hypervolemic hyponatremia? dysphagia weakness HFpEF aortic stenosis Hypokalemia 05/11/17 Transfusing patient 1 unit PRBCs. She is npo. PPI bid. c/s Dr. Kinney. Continue vanco and zosyn for sepsis. Blood cx pending. Possible pulmonary source. Repeat procalcitonin. Will add diuretics and obtain an echo with elevated BNP and murmur 05/12/17 Will repeat CXR. Sputum with early growth. Blood cx with NGTD. WBC is down. Procalcitonin up to 0.14. Monitor. Continue Vanco, Zosyn. Continue to monitor hgb, transfuse if needed. Start iron. EGD was negative. Continue bid PPI, but change to oral, d/t frequent GERD sx. Echo shows significant valvular disease, diastolic dysfunction, moderate pulmonary HTN. Consulting Dr. Laguna. Holding palbociclib d/t infection. Consult ST d/t choking. May benefit from being up to chair for meals. Will ask PT/OT to see. 05/13/17 She continues to slowly improve. Persistent cough, with choking- Likely multifactorial. Continue Nebs, PPI BID, Abx. ST consult. Restart Vit C at pt. request. Continue fluid management; holding diuretics as BP is lower, mildly dry on labs - start daily oral Lasix in AM. She does continue to have some peripheral edema- monitor. Will start Bladder training and remove later today. D/W RN. Replace KCL today and recheck in AM. HGB is a bit lower today. FOB +. EGD normal. Continue to monitor. Higher risk for any surgical procedures. PT/OT consult. Home meds reviewed. Restart Synthroid. Check TSH. Will need assistance with DC planning- HH vs. inpt. recovery. 05/14/17 Suspect pulmonary source of sepsis, but no source identified. WBC is trending down. Continue Vanco and Zosyn. Day 4 of abx. Will avoid aggressive diuresis given critical . d/w Dr. Laguna. Appreciate his input. Patient not inclined to have DNR. Increase K. TSH elevated and fT4 is low, increase Synthroid. Palbociclib on hold d/t infection. 05/15/17 Continue Vancomycin and Zosyn for pulmonary coverage - Day #5. Recheck CXR tomorrow to assess pulmonary effusions. Wean O2 - maintaining saturations well on low flow O2 (mainly using for patient comfort). Start Mucinex DM BID to help decrease cough and congestion. Continue Lasix to help diuresis. Additional oral potassium of 10mEq today at noon as potassium decreased to 3.3. Encourage activities. Potentially discharge in near future if patient continues to make gains.
[2017-05-16] MEDS: SALINE FLUSH 10ml SYRINGE IVF PRN ×5 (00:20→18:48)
[2017-05-16] MEDS: PIPERACILLIN/TAZOBACTAM 3.375 GM in NS 100 ML IV SCH ×4 (01:34→18:47)
[2017-05-16] MEDS: ALBUTEROL 2.5mg/3ml (0.083%) NEB AEROSOL PRN (01:45)
[2017-05-16] MEDS: LEVOTHYROXINE 137 MCG TABLET PO SCH (06:14)
[2017-05-16] MEDS: ALBUTEROL 2.5mg/3ml (0.083%) NEB AEROSOL SCH ×5 (07:26→20:24)
[2017-05-16] MEDS: GUAIFENESIN/D-METHORPHAN 600mg/30mg TABLET PO SCH ×2 (08:15→22:15)
[2017-05-16] MEDS: FUROSEMIDE 40 MG TABLET PO SCH (08:15)
[2017-05-16] MEDS: FERROUS GLUCONATE 324 MG TABLET PO SCH ×2 (08:15→16:56)
[2017-05-16] MEDS: OMEPRAZOLE 20 MG CAPSULE PO SCH ×2 (08:15→16:57)
[2017-05-16] MEDS: ASCORBIC ACID 500 MG TABLET PO SCH (08:15)
[2017-05-16] MEDS: SALINE 0.65% NASAL SPRAY 44 ML BOTTLE EA NOSTRIL SCH ×4 (08:16→22:15)
--- NOTE | 2017-05-16 08:27 | XRay Report ---
INDICATION: F/U effusions PROCEDURE: CHEST 2-VIEWS UPRIGHT (PA & LAT) Encounter: Initial COMPARISON: May 12, 2017 FINDINGS: Slight decrease in small bilateral pleural effusions. Mild lower lobe airspace opacities are stable. No new areas of consolidation or pneumothorax. Heart size and mediastinal contours are stable. Pulmonary vascularity is unchanged. Impression: Slight improvement in small pleural effusions. .
--- NOTE | 2017-05-16 14:03 | Progress Note ---
- Date 05/16/17 Subjective: F/U: Sepsis, pneumonia, Severe Doing fair today. Breathing easier-still cough at times. Notes dyspepsia secondary to oral potassium tablets. No nausea. No chest pain. Not having f/c. Strength doing fair. Objective Vital signs: Temperature 98.2 F 05/16/17 07:27 Pulse Rate 90 05/16/17 08:00 Respiratory Rate 22 05/16/17 11:20 Blood Pressure 107/62 05/16/17 07:27 Pulse Oximetry 98 05/16/17 11:25 Height/Weight/BMI: Height 1.55 m Weight 78 kg Body Mass Index 31.9 - Constitutional Present: well nourished, well developed, obese, cooperative - Routine HEENT Exam Head: Present: normocephalic, atraumatic Eye: Present: EOMI, PERRL ENT: Present: mucous membranes moist - Routine Respiratory Exam Present: decreased breath sounds, distant breath sounds, diminished air movement. Absent: respiratory distress - Routine Cardiovascular Exam Present: RRR, murmur - Routine Abdominal Exam Present: soft, normoactive bowel sounds, non distended, non tender - Routine Extremities Exam Present: edema (+2BLE ). Absent: cyanosis, clubbing - Routine Musculoskeletal Exam Musculoskeletal: Present: no clubbing or cyanosis - Routine Skin Exam Present: dry, warm - Routine Neurological Exam Present: alert, oriented X3, CN II-XII intact, moving all extremities. Absent: motor deficit - Routine Psychiatric Exam Present: normal affect, normal thought process, cooperative Results - Labs CBC & Chem 7: 05/16/17 04:02 05/16/17 04:02 Microbiology Results: Microbiology 05/11/17 15:53 Sputum, Expectorated Gram Stain - Final 05/11/17 15:53 Sputum, Expectorated Sputum Culture - Final Normal Respiratory Holly Present Assessment and Plan (1) Severe sepsis Current visit: Yes Status: Acute (2) Leukocytosis Current visit: Yes Status: Acute (3) Anemia Current visit: Yes Status: Acute (4) Hypothyroid Current visit: Yes Status: Acute (5) Peripheral edema Current visit: Yes Status: Acute (6) Chest pain Current visit: Yes Status: Acute (7) GERD (gastroesophageal reflux disease) Current visit: Yes Status: Acute (8) Metastatic breast cancer Current visit: Yes Status: Acute (9) Asplenia Current visit: Yes Status: Acute (10) Hyponatremia Current visit: Yes Status: Acute (11) Congestive heart failure due to valvular disease Current visit: Yes Status: Acute (12) Aortic stenosis, severe Current visit: Yes Status: Acute (13) Hypokalemia Current visit: Yes Status: Acute Assessment and Plan: Assessment Sepsis (POA) - suspect secondary to pneumonia Pneumonia Leukocytosis (POA) - resolved anemia with melena - Transfusion 1 unit pRBC 05/11/17 GERD - Hiatal Hernia found on EGD Breast cancer with mets to lung, bone Hypoxemia Asplenia Hypothyroid Hypervolemic hyponatremia (POA) - resolved Dysphagia Weakness CHF secondary to valvular heart disease Severe aortic stenosis CAD Hypokalemia (Not POA) - secondary to diuretics Obesity with BMI 32.[address] Laguna about patient's volume status-he did give additional Bumex IV this am. Recommends increasing Lasix to 40mg in am with 40mg in afternoon. BB contraindicated secondary to relative hypotension, wheezing, and Severe . ARMAND inhibitor contraindicated secondary to relative hypotension and Severe . Severe sepsis has resolved. Do not see need for continued antibiotics. Renal status and potassium normal. Will continue Mucinex DM BID for 1 week to help decrease cough and congestion- then as needed. Medically stable for discharge to home. Will have patient F/U with Dr Rangel in 1 week Recommend recheck BMP and magnesium secondary to Lasix use. Can F/U with Dr. Rico in 2 weeks. Continue oncological care by Dr Hannon. See orders for details. Case discussed with CM and Dr Laguna. Time spent with patient care and discharge greater than 30 minutes. Resuscitation Status: Full Code Hospital Course Summary Disclaimer: The visit summary below is not to be considered part of the above Progress Note. Hospital Course: Assessment Suspect pulmonary source of sepsis, but no source identified. WBC is trending down. Continue Vanco and Zosyn. Will avoid aggressive diuresis given critical . d/w Dr. Laguna. Appreciate his input. Will give patient time to consider hospice and/or DNR. Supplementing K. TSH elevated. fT4 pending. May need to increase Synthroid. 05/14/17 15:57 Sepsis, suspect pneumonia anemia with melena GERD breast cancer with mets to lung, bone hypoxemia asplenia leukocytosis hypothyroid hypervolemic hyponatremia? dysphagia weakness HFpEF aortic stenosis Hypokalemia 05/11/17 Transfusing patient 1 unit PRBCs. She is npo. PPI bid. c/s Dr. Kinney. Continue vanco and zosyn for sepsis. Blood cx pending. Possible pulmonary source. Repeat procalcitonin. Will add diuretics and obtain an echo with elevated BNP and murmur 05/12/17 Will repeat CXR. Sputum with early growth. Blood cx with NGTD. WBC is down. Procalcitonin up to 0.14. Monitor. Continue Vanco, Zosyn. Continue to monitor hgb, transfuse if needed. Start iron. EGD was negative. Continue bid PPI, but change to oral, d/t frequent GERD sx. Echo shows significant valvular disease, diastolic dysfunction, moderate pulmonary HTN. Consulting Dr. Laguna. Holding palbociclib d/t infection. Consult ST d/t choking. May benefit from being up to chair for meals. Will ask PT/OT to see. 05/13/17 She continues to slowly improve. Persistent cough, with choking- Likely multifactorial. Continue Nebs, PPI BID, Abx. ST consult. Restart Vit C at pt. request. Continue fluid management; holding diuretics as BP is lower, mildly dry on labs - start daily oral Lasix in AM. She does continue to have some peripheral edema- monitor. Will start Bladder training and remove later today. D/W RN. Replace KCL today and recheck in AM. HGB is a bit lower today. FOB +. EGD normal. Continue to monitor. Higher risk for any surgical procedures. PT/OT consult. Home meds reviewed. Restart Synthroid. Check TSH. Will need assistance with DC planning- HH vs. inpt. recovery. 05/14/17 Suspect pulmonary source of sepsis, but no source identified. WBC is trending down. Continue Vanco and Zosyn. Day 4 of abx. Will avoid aggressive diuresis given critical . d/w Dr. Laguna. Appreciate his input. Patient not inclined to have DNR. Increase K. TSH elevated and fT4 is low, increase Synthroid. Palbociclib on hold d/t infection. 05/15/17 Continue Vancomycin and Zosyn for pulmonary coverage - Day #5. Recheck CXR tomorrow to assess pulmonary effusions. Wean O2 - maintaining saturations well on low flow O2 (mainly using for patient comfort). Start Mucinex DM BID to help decrease cough and congestion. Continue Lasix to help diuresis. Additional oral potassium of 10mEq today at noon as potassium decreased to 3.3. Encourage activities. Potentially discharge in near future if patient continues to make gains. 05/16/17 Weaned to room air. WBC normal at 6.[address] Laguna about patient's volume status-he did give additional Bumex IV this am. Recommends increasing Lasix to 40mg in am with 40mg in afternoon. BB contraindicated secondary to relative hypotension, wheezing, and Severe . ARMAND inhibitor contraindicated secondary to relative hypotension and Severe . Severe sepsis has resolved. Do not see need for continued antibiotics. Renal status and potassium normal. Will continue Mucinex DM BID for 1 week to help decrease cough and congestion- then as needed. Medically stable for discharge to home. Will have patient F/U with Dr Rangel in 1 week Recommend recheck BMP and magnesium secondary to Lasix use. Can F/U with Dr. Rico in 2 weeks. Continue oncological care by Dr Hannon. See orders for details.
--- NOTE | 2017-05-16 14:22 | Discharge Summary ---
Discharge Information Date of admission: 05/10/17 23:18 Anticipated date of discharge: 05/16/17 Attending Physician: Yg Jordan MD Primary care physician: Darius Rangel II, MD Consults: Physician Consult: Keenan Kinney Reason For Exam: anemia, suspect GI bleed Physician Consult: Hernan Laguna Reason For Exam: valvular disease, diastolic dysfunction PT/OT/Speech - Discharge Diagnosis (1) Severe sepsis Status: Resolved (2) Leukocytosis Status: Resolved (3) Anemia Status: Acute (4) Hypothyroid Status: Chronic (5) Peripheral edema Status: Chronic (6) Chest pain Status: Resolved (7) GERD (gastroesophageal reflux disease) Status: Acute (8) Metastatic breast cancer Status: Chronic (9) Asplenia Status: Chronic (10) Hyponatremia Status: Acute (11) Congestive heart failure due to valvular disease Status: Chronic (12) Aortic stenosis, severe Status: Chronic (13) Hypokalemia Status: Acute Discharge diagnosis Sepsis (POA) - suspect secondary to pneumonia Pneumonia Associated conditions and complications Leukocytosis (POA) - resolved anemia with melena - Transfusion 1 unit pRBC 05/11/17 GERD - Hiatal Hernia found on EGD Breast cancer with mets to lung, bone Hypoxemia Asplenia Hypothyroid Hypervolemic hyponatremia (POA) - resolved Dysphagia Weakness CHF secondary to valvular heart disease Severe aortic stenosis CAD Hypokalemia (Not POA) - secondary to diuretics Obesity with BMI 32.7 - Procedures Procedures: Date of procedure: 05/11/17 Procedure: Transfusion on 1 unit pRBC DATE OF SERVICE: 05/11/2017 SURGEON: Keenan Kinney MD PREOPERATIVE DIAGNOSES: Anemia, questionable history for melena, history for epigastric discomfort/gastroesophageal reflux disease. POSTOPERATIVE DIAGNOSES: Anemia, questionable history for melena, history for epigastric discomfort/gastroesophageal reflux disease, hiatal hernia. PROCEDURE: Esophagogastroduodenoscopy. FINDINGS: Upon upper endoscopy the patient was found to have about a 5-cm hiatal hernia. Otherwise, the esophagus, stomach and duodenum were within normal limits. DATE OF SERVICE: 05/11/2017 Procedure: ECHO - Technically good 2-D, M-mode, Doppler echocardiographic images were submitted for interpretation. FINDINGS 1. CARDIAC CHAMBERS. Left atrium is dilated. All other cardiac chambers are normal in size. Left atrium measured 4.7 cm. 2. LEFT VENTRICLE. Concentric LVH is present. Wall thickness measured 19 mm in the posterior wall, 21 mm in the septal wall. Wall motion analysis shows hyperdynamic left ventricle. Ejection fraction measured 78%. Some crowding at the subvalvular level is noted without RAJAT appreciated. See comment below about LVOT Doppler. Diastolic dysfunction, grade II/IV, is present with E/A ratio 1.2, E/E' ratio of 19 (pseudonormal pattern). MVDT measured 387 milliseconds. 3. VALVES. Aortic valve is heavily calcified, open severely restricted. Mitral valve exhibits heavy annular calcification, especially posteriorly. Also extends anteriorly with some leaflet sclerosis. Valve opening is restricted to, visually, mild to moderate degree. Tricuspid valve structure and motion appear normal, normal valve excursion. 4. DOPPLER. Shows mild mitral regurgitation, mild aortic regurgitation, moderate tricuspid regurgitation. Peak flow velocity at the LVOT level with late peak 1.4 m/sec at rest, Valsalva was not performed, and peak flow velocity at the aortic valve level 5.7 m/sec with peak and mean pressure gradient of 130 and 65 mmHg. The calculated aortic valve area of 0.39 cm2 is based on LVOT diameter of 1.4 does not appear to be accurate. The valve stenosis, nevertheless , is critical, regardless. 5. No evidence of pericardial effusion, intracardiac masses or demonstrable shunts. IMPRESSION 1. Left atrial enlargement. 2. Marked concentric LVH. 3. Hyperdynamic left ventricle, EF of 78%. 4. Possible subaortic obstruction (suggested on the LVOT Doppler velocity signal morphology, although velocity remains within upper normal range at rest 1.4 m/sec). 5. Critical calcific aortic valve stenosis with a mean pressure gradient of 65 mmHg. 6. Mitral annular calcification with mild to moderate mitral stenosis (peak and mean pressure gradient of 13 and 4 mmHg). 7. Mild mitral regurgitation. 8. Mild aortic regurgitation. 9. Moderate tricuspid regurgitation. 10. Moderate pulmonary hypertension, systolic PA pressure estimated at 54 mmHg. 11. Diastolic dysfunction, grade II/IV (pseudonormal pattern). 12. IVC is not well seen on a limited subcostal view. RECOMMENDATION Cardiology consultation. Covering hospitalist was contacted with a report. - Laboratory Labs: Admit Lab 05/10/17 21:25 WBC 29.3 H* Hgb 6.8 L Hct 20.6 L MCV 113.8 H Plt Count 177 Neutrophils % (Manual) 36.0 Band Neutrophils % 48.0 H Lymphocytes % (Manual) 9.0 L Monocytes % (Manual) 1.0 Basophils % (Manual) 1.0 Metamyelocytes % 5.0 H Admit Lab 05/10/17 21:25 Sodium 122 L Potassium 4.2 Chloride 91 L Carbon Dioxide 24 Anion Gap 7 BUN 11.0 Creatinine 0.6 L GFR Calculation 94 Glucose 155 H Calculated Osmolality 238 L Calcium 8.5 Total Bilirubin 0.40 Icterus Index < 2 AST 39 H ALT 40 Alkaline Phosphatase 70 Troponin I 0.024 B-Natriuretic Peptide 6760 H Total Protein 6.4 Albumin 3.4 L Globulin 3.0 Albumin/Globulin Ratio 1.1 Thyroid Tests 05/13/17 05/13/17 04:08 17:22 TSH 9.29 H Free T4 0.68 L 05/16/17 04:02 05/16/17 04:02 - Microbiology Microbiology 05/11/17 15:53 Sputum, Expectorated Gram Stain - Final 05/11/17 15:53 Sputum, Expectorated Sputum Culture - Final Normal Respiratory Holly Present - Radiology Radiology: Date of Exam: 05/10/17 Procedure: XR chest 2V Findings: Lungs and airways: Increased lung volumes suggesting COPD. Right greater than left basilar airspace opacities likely related to atelectasis. Mild pulmonary vascular congestion. Pleura: Small bilateral pleural effusions. No pneumothorax. Heart and mediastinum: Cardiomegaly. Aortic atherosclerosis. Osseous structures and soft tissues: No acute osseous abnormality is seen. Degenerative changes of the shoulders and thoracic spine. Impression: 1. Cardiomegaly with mild pulmonary vascular congestion and small pleural effusions. 2. Right greater than left basilar airspace opacities likely related to relaxation atelectasis, although in the appropriate clinical setting, a superimposed infectious/inflammatory process would be difficult to exclude. --------- Date of Exam: 05/12/17 PROCEDURE: CHEST 2-VIEWS UPRIGHT (PA & LAT) FINDINGS: Small bilateral pleural effusions and bibasilar airspace disease are unchanged. Emphysema and hyperinflation. No pneumothorax. Heart size and mediastinal contours are stable. Pulmonary vascularity is stable. Impression: Stable pleural effusions and lower lobe airspace disease. Date of Exam: 05/16/17 PROCEDURE: CHEST 2-VIEWS UPRIGHT (PA & LAT) FINDINGS: Slight decrease in small bilateral pleural effusions. Mild lower lobe airspace opacities are stable. No new areas of consolidation or pneumothorax. Heart size and mediastinal contours are stable. Pulmonary vascularity is unchanged. Impression: Slight improvement in small pleural effusions. History of Present Illness HPI: 87-year-old female presents to the emergency room with chest pain. She says it feels like GERD/heartburn. has been intermittent over the past 2 weeks and spent much worse with activity. She was admitted to via [facility] about a week ago what sounds like for a workup for this. Apparently she had a cardiac workup, but is not clear to me if she had a GI workup as well. She does report that she had some polyps taken out and stomach 2 years ago but she doesn't seem to remember endoscopy in the last week or 2. She says drinking hot water helps it, she also describes that sounds like she's gotten either iron infusions or perhaps other shots for anemia in the past few days with her oncologist. She is seeing for her breast cancer/lung cancer treatments she denies any fever or chills she denies any productive cough. She denies nausea vomiting she denies any bloody stools but she says she has black stools from iron she is taking. She denies any skin rash or areas that she thinks are infected on her skin. For complete details of the H&P refer to that document. Objective Vital signs: Temperature 98.2 F 05/16/17 07:27 Pulse Rate 90 05/16/17 08:00 Respiratory Rate 22 05/16/17 11:20 Blood Pressure 107/62 05/16/17 07:27 Pulse Oximetry 98 05/16/17 11:25 Height/Weight/BMI: Height 1.55 m Weight 78 kg Body Mass Index 31.9 Hospital Course This is a general summary of the patient's hospital course. For more details refer to the complete medical record. Hospital course: Assessment Suspect pulmonary source of sepsis, but no source identified. WBC is trending down. Continue Vanco and Zosyn. Will avoid aggressive diuresis given critical . d/w Dr. Laguna. Appreciate his input. Will give patient time to consider hospice and/or DNR. Supplementing K. TSH elevated. fT4 pending. May need to increase Synthroid. 05/14/17 15:57 Sepsis, suspect pneumonia anemia with melena GERD breast cancer with mets to lung, bone hypoxemia asplenia leukocytosis hypothyroid hypervolemic hyponatremia? dysphagia weakness HFpEF aortic stenosis Hypokalemia 05/11/17 Transfusing patient 1 unit PRBCs. She is npo. PPI bid. c/s Dr. Kinney. Continue vanco and zosyn for sepsis. Blood cx pending. Possible pulmonary source. Repeat procalcitonin. Will add diuretics and obtain an echo with elevated BNP and murmur 05/12/17 Will repeat CXR. Sputum with early growth. Blood cx with NGTD. WBC is down. Procalcitonin up to 0.14. Monitor. Continue Vanco, Zosyn. Continue to monitor hgb, transfuse if needed. Start iron. EGD was negative. Continue bid PPI, but change to oral, d/t frequent GERD sx. Echo shows significant valvular disease, diastolic dysfunction, moderate pulmonary HTN. Consulting Dr. Laguna. Holding palbociclib d/t infection. Consult ST d/t choking. May benefit from being up to chair for meals. Will ask PT/OT to see. 05/13/17 She continues to slowly improve. Persistent cough, with choking- Likely multifactorial. Continue Nebs, PPI BID, Abx. ST consult. Restart Vit C at pt. request. Continue fluid management; holding diuretics as BP is lower, mildly dry on labs - start daily oral Lasix in AM. She does continue to have some peripheral edema- monitor. Will start Bladder training and remove later today. D/W RN. Replace KCL today and recheck in AM. HGB is a bit lower today. FOB +. EGD normal. Continue to monitor. Higher risk for any surgical procedures. PT/OT consult. Home meds reviewed. Restart Synthroid. Check TSH. Will need assistance with DC planning- HH vs. inpt. recovery. 05/14/17 Suspect pulmonary source of sepsis, but no source identified. WBC is trending down. Continue Vanco and Zosyn. Day 4 of abx. Will avoid aggressive diuresis given critical . d/w Dr. Laguna. Appreciate his input. Patient not inclined to have DNR. Increase K. TSH elevated and fT4 is low, increase Synthroid. Palbociclib on hold d/t infection. 05/15/17 Continue Vancomycin and Zosyn for pulmonary coverage - Day #5. Recheck CXR tomorrow to assess pulmonary effusions. Wean O2 - maintaining saturations well on low flow O2 (mainly using for patient comfort). Start Mucinex DM BID to help decrease cough and congestion. Continue Lasix to help diuresis. Additional oral potassium of 10mEq today at noon as potassium decreased to 3.3. Encourage activities. Potentially discharge in near future if patient continues to make gains. 05/16/17 Weaned to room air. WBC normal at 6.[address] Laguna about patient's volume status-he did give additional Bumex IV this am. Recommends increasing Lasix to 40mg in am with 40mg in afternoon. BB contraindicated secondary to relative hypotension, wheezing, and Severe . ARMAND inhibitor contraindicated secondary to relative hypotension and Severe . Severe sepsis has resolved. Do not see need for continued antibiotics. Renal status and potassium normal. Will continue Mucinex DM BID for 1 week to help decrease cough and congestion- then as needed. Medically stable for discharge to home. Will have patient F/U with Dr Rangel in 1 week Recommend recheck BMP and magnesium secondary to Lasix use. Can F/U with Dr. Rico in 2 weeks. Continue oncological care by Dr Hannon. See orders for details. GI Prophylaxis: other (Omperazole ) Discharge Plan - Discharge Disposition Disposition: [facility] *Condition: Stable *Reason For Visit: Chest pain - Discharge Medications *Discharge Medications: New Furosemide [Lasix] 40 mg PO [id number] #60 tab Guaifenesin/Dm [Mucinex Dm] 1 tab PO BID tablet Levothyroxine Tab [Synthroid] 137 mcg PO ACB #30 tab Potassium Chloride [K-Dur] 20 meq PO TIDWM #90 tab Continue Nitroglycerin [Nitrostat] 0.4 mg SL Q5MIN #0 Vitamin B Complex 1 tab PO DAILY #0 Palbociclib [Ibrance] 125 mg PO DAILY Ferrous Sulfate [Feosol] 324 mg PO DAILY Albuterol Sulfate 2.5 mg IH BID #0 Ascorbic Acid [Vitamin C] 500 mg PO DAILY #0 Pravastatin Sodium 40 mg PO HS #0 Changed Omeprazole 20 mg PO BID #0 Discontinued Potassium Chloride 20 meq PO WB #0 Torsemide [Torsemide] 10 mg PO DAILY Levofloxacin [Levaquin] 500 mg PO DAILY Propranolol HCl 20 mg PO BID #0 Levothyroxine Tab [Synthroid] 125 mcg PO ACB #0 - Discharge Packet/Instructions *Diet: Low sodium. May have up to 2 quarts of fluid a day. *Activity: As tolerated. Elevate legs while at rest. *Pain Management/Treatment: Tylenol as needed. *Wound Care: N/A Additional Instructions: Use Mucinex DM twice a day for 1 week to help decrease cough and congestion, then as needed. Use Lasix (furosemide) 40mg in morning and at 1400 to help decrease edema. Take potassium three times a day with food. Use Omeprazole 20mg Twice a day before meals. Take Iron with Vitamin C for maximum effect. Your thyroid medication was increased during hospitalization. Use new prescription. *Expected Signs/Symptoms: Improvement of breathing. *Notify Physician if: Temp >100.4. Increasing difficulty breathing. *During Business Hours Contact: Dr Rangel *After Business Hours Contact: Call [facility] [place] and have Dr Rangel or his covering physician paged. *Pending Lab/Results: No Pending Lab - Referrals/Follow Up - Patient Handouts Patient Handouts: [facility] [place] Congestive Heart Failure, Chest Pain (GEN) - Dismissal Complete Discharge Instructions are:: Complete
[2017-05-16] MEDS: NS FLUSH BAG 500ml IV PRN (18:48)
--- NOTE | 2017-05-16 20:44 | Cardiology Progress Note ---
Subjective Interval history: Brenda is feeling better. Has been up to the bathroom. She is off oxygen. Diuresed well frequent trips to the bathroom this morning No angina or dyspnea Telemetry shows normal sinus rhythm Weight vital signs I/O's labs and meds reviewed in detail plan as discussed with the nurse and the patient Exam Vital signs: Temperature 96.2 F L 05/16/17 15:09 Pulse Rate 107 H 05/16/17 15:47 Respiratory Rate 16 05/16/17 20:24 Blood Pressure 106/72 05/16/17 15:03 Pulse Oximetry 96 05/16/17 20:24 - Constitutional no acute distress, other (very elderly) - Routine HEENT Exam Head: Present: normocephalic, atraumatic Eye: Present: EOMI, PERRL ENT: Present: mucous membranes moist - Routine Neck Exam Present: normal carotid upstroke. Absent: JVD, carotid bruit, lymphadenopathy, thyromegaly - Routine Respiratory Exam Present: wheezes. Absent: rales - Routine Cardiovascular Exam Present: RRR, murmur (3-4/6 harsh systolic murmur), JVD (mild) - Routine Abdominal Exam Present: soft, normoactive bowel sounds, non distended, non tender. Absent: organomegaly, mass - Routine Extremities Exam Present: edema (bilateral dense pitting edema in the lower extremities over half the way up to the knees). Absent: cyanosis, clubbing - Routine Skin Exam Present: intact, dry. Absent: cyanosis, erythema - Routine Neurological Exam Present: alert, oriented X3, CN II-XII intact, moving all extremities, vision grossly intact, hearing grossly intact, normal speech. Absent: motor deficit, facial asymmetry - Routine Psychiatric Exam Present: normal affect, cooperative, good insight, good judgment - Urinary Catheter Management Urethral Cath placed during this visit: yes, but has since been removed by the nurse Insertion date: 05/11/17 Insertion time: 03:45 Removal date: 05/13/17 Removal time: 14:30 Assessment and Plan - Assessment and Plan (1) Aortic stenosis, severe Current visit: Yes Status: Chronic (2) Angina pectoris Current visit: Yes Status: Acute (3) Coronary arteriosclerosis after percutaneous transluminal coronary angioplasty (PTCA) Current visit: Yes Status: Acute (4) Metastatic breast cancer Current visit: Yes Status: Chronic (5) Congestive heart failure due to valvular disease Current visit: Yes Status: Chronic Volumes remains up blood pressure tolerating diuresis she has improved Going to give an additional IV Bumex in the morning changed her diuretics to Bumex 1 mg by mouth twice a day monitor potassium level No ARMAND inhibitor due to risk of severe hypotension with fixed cardiac output caused by critical patient also has had intermittent hypotension so risk of ARMAND inhibitor outweighs the benefit No beta blockers due to wheezing Potassium supplement seems to be working by big potassium level up Addition of spironolactone will require very close monitoring of basic metabolic profile both inpatient and outpatient basis and may risk hyperkalemia Appears stable from a cardiac standpoint She has a very good insight and her serious nature of her cardiac disease Again not a good candidate for catheter-based aortic valve replacement due to metastatic cancer and to some degree her age. She follows a Dr. Rico for cardiology Plan of care discussed in detail with Dr. Jordan. (6) GI (gastrointestinal bleed) Current visit: Yes Status: Acute (7) Pneumonia Current visit: Yes Status: Acute (8) Sepsis Current visit: Yes Status: Acute Hospital Course Summary Disclaimer: The visit summary below is not to be considered part of the above Progress Note. Hospital Course: Assessment Suspect pulmonary source of sepsis, but no source identified. WBC is trending down. Continue Vanco and Zosyn. Will avoid aggressive diuresis given critical . d/w Dr. Laguna. Appreciate his input. Will give patient time to consider hospice and/or DNR. Supplementing K. TSH elevated. fT4 pending. May need to increase Synthroid. 05/14/17 15:57 Sepsis, suspect pneumonia anemia with melena GERD breast cancer with mets to lung, bone hypoxemia asplenia leukocytosis hypothyroid hypervolemic hyponatremia? dysphagia weakness HFpEF aortic stenosis Hypokalemia 05/11/17 Transfusing patient 1 unit PRBCs. She is npo. PPI bid. c/s Dr. Kinney. Continue vanco and zosyn for sepsis. Blood cx pending. Possible pulmonary source. Repeat procalcitonin. Will add diuretics and obtain an echo with elevated BNP and murmur 05/12/17 Will repeat CXR. Sputum with early growth. Blood cx with NGTD. WBC is down. Procalcitonin up to 0.14. Monitor. Continue Vanco, Zosyn. Continue to monitor hgb, transfuse if needed. Start iron. EGD was negative. Continue bid PPI, but change to oral, d/t frequent GERD sx. Echo shows significant valvular disease, diastolic dysfunction, moderate pulmonary HTN. Consulting Dr. Lgauna. Holding palbociclib d/t infection. Consult ST d/t choking. May benefit from being up to chair for meals. Will ask PT/OT to see. 05/13/17 She continues to slowly improve. Persistent cough, with choking- Likely multifactorial. Continue Nebs, PPI BID, Abx. ST consult. Restart Vit C at pt. request. Continue fluid management; holding diuretics as BP is lower, mildly dry on labs - start daily oral Lasix in AM. She does continue to have some peripheral edema- monitor. Will start Bladder training and remove later today. D/W RN. Replace KCL today and recheck in AM. HGB is a bit lower today. FOB +. EGD normal. Continue to monitor. Higher risk for any surgical procedures. PT/OT consult. Home meds reviewed. Restart Synthroid. Check TSH. Will need assistance with DC planning- HH vs. inpt. recovery. 05/14/17 Suspect pulmonary source of sepsis, but no source identified. WBC is trending down. Continue Vanco and Zosyn. Day 4 of abx. Will avoid aggressive diuresis given critical . d/w Dr. Laguna. Appreciate his input. Patient not inclined to have DNR. Increase K. TSH elevated and fT4 is low, increase Synthroid. Palbociclib on hold d/t infection. 05/15/17 Continue Vancomycin and Zosyn for pulmonary coverage - Day #5. Recheck CXR tomorrow to assess pulmonary effusions. Wean O2 - maintaining saturations well on low flow O2 (mainly using for patient comfort). Start Mucinex DM BID to help decrease cough and congestion. Continue Lasix to help diuresis. Additional oral potassium of 10mEq today at noon as potassium decreased to 3.3. Encourage activities. Potentially discharge in near future if patient continues to make gains. 05/16/17 Weaned to room air. WBC normal at 6.[address] Laguna about patient's volume status-he did give additional Bumex IV this am. Recommends increasing Lasix to 40mg in am with 40mg in afternoon. BB contraindicated secondary to relative hypotension, wheezing, and Severe . ARMAND inhibitor contraindicated secondary to relative hypotension and Severe . Severe sepsis has resolved. Do not see need for continued antibiotics. Renal status and potassium normal. Will continue Mucinex DM BID for 1 week to help decrease cough and congestion- then as needed. Medically stable for discharge to home. Will have patient F/U with Dr Rangel in 1 week Recommend recheck BMP and magnesium secondary to Lasix use. Can F/U with Dr. Rico in 2 weeks. Continue oncological care by Dr Hannon. See orders for details.
[2017-05-16] MEDS: PRAVASTATIN 40 MG TABLET PO SCH (22:15)
[2017-05-17] MEDS: PIPERACILLIN/TAZOBACTAM 3.375 GM in NS 100 ML IV SCH ×4 (00:36→19:42)
[2017-05-17] MEDS: LEVOTHYROXINE 137 MCG TABLET PO SCH (05:45)
[2017-05-17] MEDS: SALINE FLUSH 10ml SYRINGE IVF PRN (05:46)
[2017-05-17] MEDS: ALBUTEROL 2.5mg/3ml (0.083%) NEB AEROSOL SCH ×5 (07:05→19:37)
[2017-05-17] MEDS: BUMETANIDE 1 MG TABLET PO SCH ×2 (08:44→14:19)
[2017-05-17] MEDS: OMEPRAZOLE 20 MG CAPSULE PO SCH ×2 (08:44→18:39)
[2017-05-17] MEDS: GUAIFENESIN/D-METHORPHAN 600mg/30mg TABLET PO SCH ×2 (08:45→20:04)
[2017-05-17] MEDS: FERROUS GLUCONATE 324 MG TABLET PO SCH ×2 (08:45→18:39)
[2017-05-17] MEDS: IBRANCE 125 MG PO SCH (08:46)
[2017-05-17] MEDS: ASCORBIC ACID 500 MG TABLET PO SCH (08:46)
[2017-05-17] MEDS: SALINE 0.65% NASAL SPRAY 44 ML BOTTLE EA NOSTRIL SCH ×4 (08:47→20:03)
--- NOTE | 2017-05-17 13:38 | Progress Note ---
- Date 05/17/17 Subjective: F/U: Sepsis, pneumonia, Severe Doing fair. Still notes nausea (not as severe as yesterday)-feels gassy and bloated. Breathing well on RA-still with cough and congestion. Walked with nursing-did okay, but winds easily. Urinating well. Passing stools-C diff negative. Objective Vital signs: Temperature 97.8 F 05/17/17 07:53 Pulse Rate 95 05/17/17 07:53 Respiratory Rate 16 05/17/17 07:53 Blood Pressure 111/65 05/17/17 07:53 Pulse Oximetry 93 05/17/17 07:53 Height/Weight/BMI: Height 1.55 m Weight 75.6 kg Body Mass Index 31.9 - Constitutional Present: well nourished, well developed, obese, cooperative - Routine HEENT Exam Head: Present: normocephalic, atraumatic Eye: Present: EOMI, PERRL ENT: Present: mucous membranes moist - Routine Respiratory Exam Present: decreased breath sounds, wheezes. Absent: respiratory distress - Routine Cardiovascular Exam Present: RRR, murmur - Routine Abdominal Exam Present: soft, normoactive bowel sounds, non distended, non tender. Absent: guarding - Routine Extremities Exam Present: cyanosis, clubbing, edema (+2 BLE ) - Routine Skin Exam Present: intact, dry, warm - Routine Neurological Exam Present: alert, oriented X3, CN II-XII intact, moving all extremities, vision grossly intact, hearing grossly intact. Absent: motor deficit, altered mental status - Routine Psychiatric Exam Present: normal affect, normal thought process, cooperative Results - Labs CBC & Chem 7: 05/17/17 04:15 05/17/17 04:15 Microbiology Results: Microbiology 05/11/17 15:53 Sputum, Expectorated Gram Stain - Final 05/11/17 15:53 Sputum, Expectorated Sputum Culture - Final Normal Respiratory Holly Present Assessment and Plan (1) Severe sepsis Current visit: Yes Status: Resolved (2) Leukocytosis Current visit: Yes Status: Resolved (3) Anemia Current visit: Yes Status: Acute (4) Hypothyroid Current visit: Yes Status: Chronic (5) Peripheral edema Current visit: Yes Status: Chronic (6) Chest pain Current visit: Yes Status: Resolved (7) GERD (gastroesophageal reflux disease) Current visit: Yes Status: Acute (8) Metastatic breast cancer Current visit: Yes Status: Chronic (9) Asplenia Current visit: Yes Status: Chronic (10) Hyponatremia Current visit: Yes Status: Acute (11) Congestive heart failure due to valvular disease Current visit: Yes Status: Chronic (12) Aortic stenosis, severe Current visit: Yes Status: Chronic (13) Hypokalemia Current visit: Yes Status: Acute Assessment and Plan: Assessment Sepsis (POA) - suspect secondary to pneumonia Pneumonia Leukocytosis (POA) - resolved anemia with melena - Transfusion 1 unit pRBC 05/11/17 GERD - Hiatal Hernia found on EGD Breast cancer with mets to lung, bone Hypoxemia Asplenia Hypothyroid Hypervolemic hyponatremia (POA) - resolved Dysphagia Weakness CHF secondary to valvular heart disease Severe aortic stenosis CAD Hypokalemia (Not POA) - secondary to diuretics Obesity with BMI 32.7 Plan Discharge plans held yesterday secondary to increased nausea and vomiting yesterday afternoon. Vancomycin stopped yesterday. Will continue with Zosyn coverage while hospitalized. Lasix changed to Bumex 1mg am and [address] Laguna. Creatinine and potassium stable. Encourage activities. Monitor lab. Will continue hospitalization-pt still with wheezing and nausea, and not feeling ready for discharge today. Case discussed with CM. Time spent with patient care 25 minutes. Hospital Course Summary Disclaimer: The visit summary below is not to be considered part of the above Progress Note. Hospital Course: Assessment Suspect pulmonary source of sepsis, but no source identified. WBC is trending down. Continue Vanco and Zosyn. Will avoid aggressive diuresis given critical . d/w Dr. Laguna. Appreciate his input. Will give patient time to consider hospice and/or DNR. Supplementing K. TSH elevated. fT4 pending. May need to increase Synthroid. 05/14/17 15:57 Sepsis, suspect pneumonia anemia with melena GERD breast cancer with mets to lung, bone hypoxemia asplenia leukocytosis hypothyroid hypervolemic hyponatremia? dysphagia weakness HFpEF aortic stenosis Hypokalemia 05/11/17 Transfusing patient 1 unit PRBCs. She is npo. PPI bid. c/s Dr. Kinney. Continue vanco and zosyn for sepsis. Blood cx pending. Possible pulmonary source. Repeat procalcitonin. Will add diuretics and obtain an echo with elevated BNP and murmur 05/12/17 Will repeat CXR. Sputum with early growth. Blood cx with NGTD. WBC is down. Procalcitonin up to 0.14. Monitor. Continue Vanco, Zosyn. Continue to monitor hgb, transfuse if needed. Start iron. EGD was negative. Continue bid PPI, but change to oral, d/t frequent GERD sx. Echo shows significant valvular disease, diastolic dysfunction, moderate pulmonary HTN. Consulting Dr. Laguna. Holding palbociclib d/t infection. Consult ST d/t choking. May benefit from being up to chair for meals. Will ask PT/OT to see. 05/13/17 She continues to slowly improve. Persistent cough, with choking- Likely multifactorial. Continue Nebs, PPI BID, Abx. ST consult. Restart Vit C at pt. request. Continue fluid management; holding diuretics as BP is lower, mildly dry on labs - start daily oral Lasix in AM. She does continue to have some peripheral edema- monitor. Will start Bladder training and remove later today. D/W RN. Replace KCL today and recheck in AM. HGB is a bit lower today. FOB +. EGD normal. Continue to monitor. Higher risk for any surgical procedures. PT/OT consult. Home meds reviewed. Restart Synthroid. Check TSH. Will need assistance with DC planning- HH vs. inpt. recovery. 05/14/17 Suspect pulmonary source of sepsis, but no source identified. WBC is trending down. Continue Vanco and Zosyn. Day 4 of abx. Will avoid aggressive diuresis given critical . d/w Dr. Laguna. Appreciate his input. Patient not inclined to have DNR. Increase K. TSH elevated and fT4 is low, increase Synthroid. Palbociclib on hold d/t infection. 05/15/17 Continue Vancomycin and Zosyn for pulmonary coverage - Day #5. Recheck CXR tomorrow to assess pulmonary effusions. Wean O2 - maintaining saturations well on low flow O2 (mainly using for patient comfort). Start Mucinex DM BID to help decrease cough and congestion. Continue Lasix to help diuresis. Additional oral potassium of 10mEq today at noon as potassium decreased to 3.3. Encourage activities. Potentially discharge in near future if patient continues to make gains. 05/16/17 Weaned to room air. WBC normal at 6.[address] Laguna about patient's volume status-he did give additional Bumex IV this am. Recommends increasing Lasix to 40mg in am with 40mg in afternoon. BB contraindicated secondary to relative hypotension, wheezing, and Severe . ARMAND inhibitor contraindicated secondary to relative hypotension and Severe . Severe sepsis has resolved. Do not see need for continued antibiotics. Renal status and potassium normal. Will continue Mucinex DM BID for 1 week to help decrease cough and congestion- then as needed. Medically stable for discharge to home. Will have patient F/U with Dr Rangel in 1 week Recommend recheck BMP and magnesium secondary to Lasix use. Can F/U with Dr. Rico in 2 weeks. Continue oncological care by Dr Hannon. See orders for details. After discharge orders written, patient started to having increasing nausea and vomiting in the afternoon. Will these symptoms, held discharge as patient would not be able to do well at home. 05/17/17 Discharge plans held yesterday secondary to increased nausea and vomiting yesterday afternoon. Vancomycin stopped yesterday. Will continue with Zosyn coverage while hospitalized. Lasix changed to Bumex 1mg am and [address] Laguna. Creatinine and potassium stable. Encourage activities. Monitor lab. Will continue hospitalization-pt still with wheezing and nausea, and not feeling ready for discharge today.
--- NOTE | 2017-05-17 18:19 | Cardiology Progress Note ---
Subjective Interval history: Brenda had an episode of severe susternal chest pressure while sitting in bed "it's my has pain and i needed hot water to drink and that'll help me swallow easier and burp " . she felt like "drowning in my own fluids" has been making many BR trips , alot of urine ,but mixed with stool so wasnt measured per RN Wt is down . CP resolved in about 10 min and appeared much more relaxed when i went back and rechecked on her. Telemetry shows normal sinus rhythm Weight vital signs I/O's labs and meds reviewed in detail plan as discussed with the nurse and the patient EKG Nonspecific STT changes trop 0.117 Exam Vital signs: Temperature 97.8 F 05/17/17 15:30 Pulse Rate 107 H 05/17/17 15:30 Respiratory Rate 22 05/17/17 15:30 Blood Pressure 133/74 05/17/17 15:30 Pulse Oximetry 100 05/17/17 15:30 - Constitutional no acute distress - Routine HEENT Exam Head: Present: normocephalic, atraumatic Eye: Present: EOMI, PERRL ENT: Present: mucous membranes moist - Routine Neck Exam Present: JVD (mild) - Routine Chest/Breast/Axilla Exam Chest wall: Absent: tenderness - Routine Respiratory Exam Present: decreased breath sounds (in bases), prolonged expiratory phase, wheezes (scattered) - Routine Cardiovascular Exam Present: RRR, murmur (3/6 m) - Routine Abdominal Exam Present: soft, normoactive bowel sounds, non distended, non tender - Routine Extremities Exam Present: edema (mild B). Absent: cyanosis, clubbing - Routine Skin Exam Present: intact, dry, warm. Absent: cyanosis, erythema - Routine Neurological Exam Present: alert, oriented X3, CN II-XII intact, moving all extremities, vision grossly intact, hearing grossly intact, normal speech. Absent: sensory deficit , motor deficit, facial asymmetry - Routine Psychiatric Exam Present: normal affect, normal thought process, cooperative, good insight, good judgment, anxious (quite anxious and panicky during CP) - Urinary Catheter Management Urethral Cath placed during this visit: yes, but has since been removed by the nurse Insertion date: 05/11/17 Insertion time: 03:45 Removal date: 05/13/17 Removal time: 14:30 Assessment and Plan - Assessment and Plan (1) Aortic stenosis, severe Current visit: Yes Status: Chronic (2) Angina pectoris Current visit: Yes Status: Acute recurrent CP , obtaing EKG and serial trop x2 not an invasive candidate medical Rx prognosis is very poor ,unfiortunaltely d/t inoperable and met Ca. (3) Coronary arteriosclerosis after percutaneous transluminal coronary angioplasty (PTCA) Current visit: Yes Status: Acute (4) Metastatic breast cancer Current visit: Yes Status: Chronic (5) Congestive heart failure due to valvular disease Current visit: Yes Status: Chronic diuresing better (6) GI (gastrointestinal bleed) Current visit: Yes Status: Acute (7) Pneumonia Current visit: Yes Status: Acute (8) Sepsis Current visit: Yes Status: Acute Hospital Course Summary Disclaimer: The visit summary below is not to be considered part of the above Progress Note. Hospital Course: Assessment Suspect pulmonary source of sepsis, but no source identified. WBC is trending down. Continue Vanco and Zosyn. Will avoid aggressive diuresis given critical . d/w Dr. Laguna. Appreciate his input. Will give patient time to consider hospice and/or DNR. Supplementing K. TSH elevated. fT4 pending. May need to increase Synthroid. 05/14/17 15:57 Sepsis, suspect pneumonia anemia with melena GERD breast cancer with mets to lung, bone hypoxemia asplenia leukocytosis hypothyroid hypervolemic hyponatremia? dysphagia weakness HFpEF aortic stenosis Hypokalemia 05/11/17 Transfusing patient 1 unit PRBCs. She is npo. PPI bid. c/s Dr. Kinney. Continue vanco and zosyn for sepsis. Blood cx pending. Possible pulmonary source. Repeat procalcitonin. Will add diuretics and obtain an echo with elevated BNP and murmur 05/12/17 Will repeat CXR. Sputum with early growth. Blood cx with NGTD. WBC is down. Procalcitonin up to 0.14. Monitor. Continue Vanco, Zosyn. Continue to monitor hgb, transfuse if needed. Start iron. EGD was negative. Continue bid PPI, but change to oral, d/t frequent GERD sx. Echo shows significant valvular disease, diastolic dysfunction, moderate pulmonary HTN. Consulting Dr. Laguna. Holding palbociclib d/t infection. Consult ST d/t choking. May benefit from being up to chair for meals. Will ask PT/OT to see. 05/13/17 She continues to slowly improve. Persistent cough, with choking- Likely multifactorial. Continue Nebs, PPI BID, Abx. ST consult. Restart Vit C at pt. request. Continue fluid management; holding diuretics as BP is lower, mildly dry on labs - start daily oral Lasix in AM. She does continue to have some peripheral edema- monitor. Will start Bladder training and remove later today. D/W RN. Replace KCL today and recheck in AM. HGB is a bit lower today. FOB +. EGD normal. Continue to monitor. Higher risk for any surgical procedures. PT/OT consult. Home meds reviewed. Restart Synthroid. Check TSH. Will need assistance with DC planning- HH vs. inpt. recovery. 05/14/17 Suspect pulmonary source of sepsis, but no source identified. WBC is trending down. Continue Vanco and Zosyn. Day 4 of abx. Will avoid aggressive diuresis given critical . d/w Dr. Laguna. Appreciate his input. Patient not inclined to have DNR. Increase K. TSH elevated and fT4 is low, increase Synthroid. Palbociclib on hold d/t infection. 05/15/17 Continue Vancomycin and Zosyn for pulmonary coverage - Day #5. Recheck CXR tomorrow to assess pulmonary effusions. Wean O2 - maintaining saturations well on low flow O2 (mainly using for patient comfort). Start Mucinex DM BID to help decrease cough and congestion. Continue Lasix to help diuresis. Additional oral potassium of 10mEq today at noon as potassium decreased to 3.3. Encourage activities. Potentially discharge in near future if patient continues to make gains. 05/16/17 Weaned to room air. WBC normal at 6.[address] Laguna about patient's volume status-he did give additional Bumex IV this am. Recommends increasing Lasix to 40mg in am with 40mg in afternoon. BB contraindicated secondary to relative hypotension, wheezing, and Severe . ARMAND inhibitor contraindicated secondary to relative hypotension and Severe . Severe sepsis has resolved. Do not see need for continued antibiotics. Renal status and potassium normal. Will continue Mucinex DM BID for 1 week to help decrease cough and congestion- then as needed. Medically stable for discharge to home. Will have patient F/U with Dr Rangel in 1 week Recommend recheck BMP and magnesium secondary to Lasix use. Can F/U with Dr. Rico in 2 weeks. Continue oncological care by Dr Hannon. See orders for details. After discharge orders written, patient started to having increasing nausea and vomiting in the afternoon. Will these symptoms, held discharge as patient would not be able to do well at home. 05/17/17 Discharge plans held yesterday secondary to increased nausea and vomiting yesterday afternoon. Vancomycin stopped yesterday. Will continue with Zosyn coverage while hospitalized. Lasix changed to Bumex 1mg am and [address] Laguna. Creatinine and potassium stable. Encourage activities. Monitor lab. Will continue hospitalization-pt still with wheezing and nausea, and not feeling ready for discharge today.
[2017-05-17] MEDS: PRAVASTATIN 40 MG TABLET PO SCH (20:04)
[2017-05-18] MEDS: PIPERACILLIN/TAZOBACTAM 3.375 GM in NS 100 ML IV SCH ×4 (01:03→19:55)
[2017-05-18] MEDS: NS FLUSH BAG 500ml IV PRN (01:04)
[2017-05-18] MEDS: SALINE FLUSH 10ml SYRINGE IVF PRN ×2 (01:04→19:56)
[2017-05-18] MEDS: LEVOTHYROXINE 137 MCG TABLET PO SCH (05:50)
[2017-05-18] MEDS: ALBUTEROL 2.5mg/3ml (0.083%) NEB AEROSOL SCH ×4 (07:16→19:32)
[2017-05-18] MEDS: FERROUS GLUCONATE 324 MG TABLET PO SCH ×2 (08:36→16:59)
[2017-05-18] MEDS: GUAIFENESIN/D-METHORPHAN 600mg/30mg TABLET PO SCH ×2 (08:36→20:09)
[2017-05-18] MEDS: BUMETANIDE 1 MG TABLET PO SCH ×2 (08:37→13:33)
[2017-05-18] MEDS: IBRANCE 125 MG PO SCH (08:37)
[2017-05-18] MEDS: ASCORBIC ACID 500 MG TABLET PO SCH (08:37)
[2017-05-18] MEDS: OMEPRAZOLE 20 MG CAPSULE PO SCH ×3 (08:38→16:59)
[2017-05-18] MEDS: SALINE 0.65% NASAL SPRAY 44 ML BOTTLE EA NOSTRIL SCH ×4 (08:38→20:09)
--- NOTE | 2017-05-18 12:16 | Cardiology Progress Note ---
Subjective Interval history: Brenda is feeling better today. No further episodes of chest pain or pressure. She says she is coughing less. Still coughs up yellow phlegm. Doesn't complain of dyspnea she hasn't gotten out of bed today at just finished a breathing treatment. She had some oxygen desaturation placed back on oxygen nasal cannula. She is making frequent trips to the bathroom. It still she says. Her weight is down just over 2 kg compared with 48 hours ago. Iappear to be inaccurate. Telemetry shows normal sinus rhythm all labs telemetry relevant x- ray reviewed in detail. Blood pressure is down in the 100s today systolic and she denies dizziness. She is still weak. Son is visiting her reveals some financial issues. When asked him if he had a question regarding his mother's health he didn't answer. She is a little more anemic today and one may consider blood transfusion at discretion of primary service. She is not on aspirin or anticoagulant treatment. Her troponins remain negative. Exam Vital signs: Temperature 97.9 F 05/18/17 08:00 Pulse Rate 90 05/18/17 08:00 Respiratory Rate 18 05/18/17 11:41 Blood Pressure 109/59 05/18/17 08:00 Pulse Oximetry 97 05/18/17 11:41 - Constitutional mild distress, cooperative, other (a chronically ill very elderly) - Routine HEENT Exam Head: Present: normocephalic, atraumatic Eye: Present: EOMI ENT: Present: mucous membranes moist - Routine Neck Exam Present: JVD (mild) - Routine Respiratory Exam Present: wheezes (a few scattered wheezes bilaterally, better air movement), distant breath sounds (in bases) - Routine Cardiovascular Exam Present: RRR, murmur (3/6 harsh AASM murmur late peaking essentially absent A2) - Routine Extremities Exam Present: edema (bilateral lower symmetry tense edema). Absent: cyanosis, clubbing - Routine Neurological Exam Present: alert, oriented X3, CN II-XII intact, vision grossly intact, hearing grossly intact, normal speech. Absent: motor deficit, facial asymmetry - Routine Psychiatric Exam Present: normal affect, cooperative, good insight, good judgment - Urinary Catheter Management Urethral Cath placed during this visit: yes, but has since been removed by the nurse Insertion date: 05/11/17 Insertion time: 03:45 Removal date: 05/13/17 Removal time: 14:30 Results 05/18/17 04:04 05/18/17 04:04 Cardiac Enzymes 05/17/17 05/17/17 Range/Units 15:50 19:48 Troponin I 0.117 0.101 (0-0.12) ng/ml CBC 05/18/17 Range/Units 04:04 WBC 5.6 (4.5-11.0) T/MM3 RBC 2.19 L (4.00-5.20) M/MM3 Hgb 7.5 L (12-16) GM/DL Hct 24.8 L (36-46) % Plt Count 265 (130-400) T/MM3 Neut # (Auto) Not performed Lymph # (Auto) Not performed [place] # (Auto) Not performed Eos # (Auto) Not performed Baso # (Auto) Not performed Comprehensive Metabolic Panel 05/18/17 Range/Units 04:04 Sodium 138 (134-144) MEQ/L Potassium 3.7 (3.6-5) MEQ/L Chloride 102 (98-107) MEQ/L Carbon Dioxide 32 H (22-30) MEQ/L BUN 7.0 (7-17) MG/DL Creatinine 0.8 (0.7-1.2) MG/DL Glucose 92 (65-110) MG/DL Calcium 8.5 (8.4-10.2) MG/DL Intake and Output 05/17/17 05/18/17 05/18/17 22:59 06:59 14:59 Intake Total 200 / 200 350 / 350 220 / 220 Balance 200 / 200 350 / 350 220 / 220 Intake: IV 100 / 100 100 / 100 100 / 100 Piperacillin/Tazobactam 3 100 / 100 100 / 100 100 / 100 .375 gm In Ns 100 ml @ 200 mls/hr IV Q6H [facility] Rx# :[id number] Oral 100 / 100 250 / 250 120 / 120 Other: Urine Appearance Clear Clear Clear Urine Color Yellow Yellow Yellow Urine Odor Normal Normal Stool Color Brown Brown Brown Green Stool Consistency Loose Soft Loose Size of Bowel Movement Small Small Small # Voids 1 1 1 # Incontinent Voids 1 # Bowel Movements 1 1 Weight 75.5 kg Patient Weight 05/19/17 06:59 Weight 75.5 kg - EKG Interpretation EKG: sinus rhythm Assessment and Plan - Assessment and Plan (1) Aortic stenosis, severe Current visit: Yes Status: Chronic (2) Angina pectoris Current visit: Yes Status: Acute (3) Coronary arteriosclerosis after percutaneous transluminal coronary angioplasty (PTCA) Current visit: Yes Status: Acute (4) Congestive heart failure due to valvular disease Current visit: Yes Status: Chronic Due to her left ear CHF and angina consider blood transfusion with IV Bumex 1-2 mg between 2 units of blood at the discretion of primary service. Nothing else to offer from a cardiac standpoint. I will sign off at this time. No ARMAND inhibitor and beta blockers due to relative hypotension critical ileus with fixed cardiac output risk of severe or fatal hypotension as well as wheezing and a case of beta blockers. She follows with Dr. Rico. (5) Metastatic breast cancer Current visit: Yes Status: Chronic (6) GI (gastrointestinal bleed) Current visit: Yes Status: Acute Due to her left ear CHF and angina consider blood transfusion with IV Bumex 1-2 mg between 2 units of blood at the discretion of primary service. Nothing else to offer from a cardiac standpoint. I will sign off at this time. No ARMAND inhibitor and beta blockers due to relative hypotension critical ileus with fixed cardiac output risk of severe or fatal hypotension as well as wheezing and a case of beta blockers. She follows with Dr. Rico. (7) Pneumonia Current visit: Yes Status: Acute (8) Sepsis Current visit: Yes Status: Acute Hospital Course Summary Disclaimer: The visit summary below is not to be considered part of the above Progress Note. Hospital Course: Assessment Suspect pulmonary source of sepsis, but no source identified. WBC is trending down. Continue Vanco and Zosyn. Will avoid aggressive diuresis given critical . d/w Dr. Laguna. Appreciate his input. Will give patient time to consider hospice and/or DNR. Supplementing K. TSH elevated. fT4 pending. May need to increase Synthroid. 05/14/17 15:57 Sepsis, suspect pneumonia anemia with melena GERD breast cancer with mets to lung, bone hypoxemia asplenia leukocytosis hypothyroid hypervolemic hyponatremia? dysphagia weakness HFpEF aortic stenosis Hypokalemia 05/11/17 Transfusing patient 1 unit PRBCs. She is npo. PPI bid. c/s Dr. Kinney. Continue vanco and zosyn for sepsis. Blood cx pending. Possible pulmonary source. Repeat procalcitonin. Will add diuretics and obtain an echo with elevated BNP and murmur 05/12/17 Will repeat CXR. Sputum with early growth. Blood cx with NGTD. WBC is down. Procalcitonin up to 0.14. Monitor. Continue Vanco, Zosyn. Continue to monitor hgb, transfuse if needed. Start iron. EGD was negative. Continue bid PPI, but change to oral, d/t frequent GERD sx. Echo shows significant valvular disease, diastolic dysfunction, moderate pulmonary HTN. Consulting Dr. Laguna. Holding palbociclib d/t infection. Consult ST d/t choking. May benefit from being up to chair for meals. Will ask PT/OT to see. 05/13/17 She continues to slowly improve. Persistent cough, with choking- Likely multifactorial. Continue Nebs, PPI BID, Abx. ST consult. Restart Vit C at pt. request. Continue fluid management; holding diuretics as BP is lower, mildly dry on labs - start daily oral Lasix in AM. She does continue to have some peripheral edema- monitor. Will start Bladder training and remove later today. D/W RN. Replace KCL today and recheck in AM. HGB is a bit lower today. FOB +. EGD normal. Continue to monitor. Higher risk for any surgical procedures. PT/OT consult. Home meds reviewed. Restart Synthroid. Check TSH. Will need assistance with DC planning- HH vs. inpt. recovery. 05/14/17 Suspect pulmonary source of sepsis, but no source identified. WBC is trending down. Continue Vanco and Zosyn. Day 4 of abx. Will avoid aggressive diuresis given critical . d/w Dr. Laguna. Appreciate his input. Patient not inclined to have DNR. Increase K. TSH elevated and fT4 is low, increase Synthroid. Palbociclib on hold d/t infection. 05/15/17 Continue Vancomycin and Zosyn for pulmonary coverage - Day #5. Recheck CXR tomorrow to assess pulmonary effusions. Wean O2 - maintaining saturations well on low flow O2 (mainly using for patient comfort). Start Mucinex DM BID to help decrease cough and congestion. Continue Lasix to help diuresis. Additional oral potassium of 10mEq today at noon as potassium decreased to 3.3. Encourage activities. Potentially discharge in near future if patient continues to make gains. 05/16/17 Weaned to room air. WBC normal at 6.[address] Laguna about patient's volume status-he did give additional Bumex IV this am. Recommends increasing Lasix to 40mg in am with 40mg in afternoon. BB contraindicated secondary to relative hypotension, wheezing, and Severe . ARMAND inhibitor contraindicated secondary to relative hypotension and Severe . Severe sepsis has resolved. Do not see need for continued antibiotics. Renal status and potassium normal. Will continue Mucinex DM BID for 1 week to help decrease cough and congestion- then as needed. Medically stable for discharge to home. Will have patient F/U with Dr Rangel in 1 week Recommend recheck BMP and magnesium secondary to Lasix use. Can F/U with Dr. Rico in 2 weeks. Continue oncological care by Dr Hannon. See orders for details. After discharge orders written, patient started to having increasing nausea and vomiting in the afternoon. Will these symptoms, held discharge as patient would not be able to do well at home. 05/17/17 Discharge plans held yesterday secondary to increased nausea and vomiting yesterday afternoon. Vancomycin stopped yesterday. Will continue with Zosyn coverage while hospitalized. Lasix changed to Bumex 1mg am and [address] Laguna. Creatinine and potassium stable. Encourage activities. Monitor lab. Will continue hospitalization-pt still with wheezing and nausea, and not feeling ready for discharge today.
[2017-05-18] MEDS ORDERED: NS FLUSH BAG 500ml IV PRN (12:39)
[2017-05-18] MEDS ORDERED: DiphenhydrAMINE 25 MG CAPSULE PO ONE (12:39)
[2017-05-18] MEDS ORDERED: FUROSEMIDE 20 MG/2 ML INJECTION IVP ONE (12:39)
--- NOTE | 2017-05-18 12:46 | Progress Note ---
- Date 05/18/17 Subjective: F/U: Sepsis, pneumonia, Severe Rough night-more SOA. Cough at times. Needing O2 today. HGB decreased to 7.5. Weight decreasing. Trying to eat well. Notes nausea at times. No f/c. Objective Vital signs: Temperature 97.9 F 05/18/17 08:00 Pulse Rate 90 05/18/17 08:00 Respiratory Rate 18 05/18/17 11:41 Blood Pressure 109/59 05/18/17 08:00 Pulse Oximetry 97 05/18/17 11:41 Height/Weight/BMI: Height 1.55 m Weight 75.5 kg Body Mass Index 31.9 - Constitutional Present: well nourished, well developed, obese - Routine HEENT Exam Head: Present: normocephalic, atraumatic Eye: Present: EOMI, PERRL - Routine Respiratory Exam Present: decreased breath sounds, diminished air movement. Absent: rales, respiratory distress, rhonchi, wheezes - Routine Cardiovascular Exam Present: RRR, murmur - Routine Abdominal Exam Present: soft, non distended, non tender - Routine Extremities Exam Present: edema (+2BLE ). Absent: cyanosis, clubbing - Routine Musculoskeletal Exam Musculoskeletal: Present: no clubbing or cyanosis, normal strength - Routine Skin Exam Present: dry, warm - Routine Neurological Exam Present: alert, CN II-XII intact, moving all extremities, vision grossly intact , hearing grossly intact. Absent: motor deficit, altered mental status - Routine Psychiatric Exam Present: normal affect, normal thought process, cooperative. Absent: agitated Results - Labs CBC & Chem 7: 05/18/17 04:04 05/18/17 04:04 Microbiology Results: Microbiology 05/11/17 15:53 Sputum, Expectorated Gram Stain - Final 05/11/17 15:53 Sputum, Expectorated Sputum Culture - Final Normal Respiratory Holly Present Assessment and Plan (1) Severe sepsis Current visit: Yes Status: Resolved (2) Leukocytosis Current visit: Yes Status: Resolved (3) Anemia Current visit: Yes Status: Acute (4) Hypothyroid Current visit: Yes Status: Chronic (5) Peripheral edema Current visit: Yes Status: Chronic (6) Chest pain Current visit: Yes Status: Resolved (7) GERD (gastroesophageal reflux disease) Current visit: Yes Status: Acute (8) Metastatic breast cancer Current visit: Yes Status: Chronic (9) Asplenia Current visit: Yes Status: Chronic (10) Hyponatremia Current visit: Yes Status: Acute (11) Congestive heart failure due to valvular disease Current visit: Yes Status: Chronic (12) Aortic stenosis, severe Current visit: Yes Status: Chronic (13) Hypokalemia Current visit: Yes Status: Acute Assessment and Plan: Assessment Sepsis (POA) - suspect secondary to pneumonia Pneumonia Leukocytosis (POA) - resolved anemia with melena - Transfusion 1 unit pRBC 05/11/17 GERD - Hiatal Hernia found on EGD Breast cancer with mets to lung, bone Hypoxemia Asplenia Hypothyroid Hypervolemic hyponatremia (POA) - resolved Dysphagia Weakness CHF secondary to valvular heart disease Severe aortic stenosis CAD Hypokalemia (Not POA) - secondary to diuretics Obesity with BMI 32.7 Plan Hemoglobin with decrease to 7.5 today. Patient less wheezy today, but needing O2. Will give 1 unit of pRBC to help her cardiopulmonary performance. Lasix 40mg IV after transfusion. Wean O2 as able. Encourage continued activities. Recheck lab in am. Case discussed with CM and Dr Laguna. Time spent with patient care 25 minutes. Resuscitation Status: Full Code Hospital Course Summary Disclaimer: The visit summary below is not to be considered part of the above Progress Note. Hospital Course: Assessment Suspect pulmonary source of sepsis, but no source identified. WBC is trending down. Continue Vanco and Zosyn. Will avoid aggressive diuresis given critical . d/w Dr. Laguna. Appreciate his input. Will give patient time to consider hospice and/or DNR. Supplementing K. TSH elevated. fT4 pending. May need to increase Synthroid. 05/14/17 15:57 Sepsis, suspect pneumonia anemia with melena GERD breast cancer with mets to lung, bone hypoxemia asplenia leukocytosis hypothyroid hypervolemic hyponatremia? dysphagia weakness HFpEF aortic stenosis Hypokalemia 05/11/17 Transfusing patient 1 unit PRBCs. She is npo. PPI bid. c/s Dr. Kinney. Continue vanco and zosyn for sepsis. Blood cx pending. Possible pulmonary source. Repeat procalcitonin. Will add diuretics and obtain an echo with elevated BNP and murmur 05/12/17 Will repeat CXR. Sputum with early growth. Blood cx with NGTD. WBC is down. Procalcitonin up to 0.14. Monitor. Continue Vanco, Zosyn. Continue to monitor hgb, transfuse if needed. Start iron. EGD was negative. Continue bid PPI, but change to oral, d/t frequent GERD sx. Echo shows significant valvular disease, diastolic dysfunction, moderate pulmonary HTN. Consulting Dr. Laguna. Holding palbociclib d/t infection. Consult ST d/t choking. May benefit from being up to chair for meals. Will ask PT/OT to see. 05/13/17 She continues to slowly improve. Persistent cough, with choking- Likely multifactorial. Continue Nebs, PPI BID, Abx. ST consult. Restart Vit C at pt. request. Continue fluid management; holding diuretics as BP is lower, mildly dry on labs - start daily oral Lasix in AM. She does continue to have some peripheral edema- monitor. Will start Bladder training and remove later today. D/W RN. Replace KCL today and recheck in AM. HGB is a bit lower today. FOB +. EGD normal. Continue to monitor. Higher risk for any surgical procedures. PT/OT consult. Home meds reviewed. Restart Synthroid. Check TSH. Will need assistance with DC planning- HH vs. inpt. recovery. 05/14/17 Suspect pulmonary source of sepsis, but no source identified. WBC is trending down. Continue Vanco and Zosyn. Day 4 of abx. Will avoid aggressive diuresis given critical . d/w Dr. Laguna. Appreciate his input. Patient not inclined to have DNR. Increase K. TSH elevated and fT4 is low, increase Synthroid. Palbociclib on hold d/t infection. 05/15/17 Continue Vancomycin and Zosyn for pulmonary coverage - Day #5. Recheck CXR tomorrow to assess pulmonary effusions. Wean O2 - maintaining saturations well on low flow O2 (mainly using for patient comfort). Start Mucinex DM BID to help decrease cough and congestion. Continue Lasix to help diuresis. Additional oral potassium of 10mEq today at noon as potassium decreased to 3.3. Encourage activities. Potentially discharge in near future if patient continues to make gains. 05/16/17 Weaned to room air. WBC normal at 6.[address] Laguna about patient's volume status-he did give additional Bumex IV this am. Recommends increasing Lasix to 40mg in am with 40mg in afternoon. BB contraindicated secondary to relative hypotension, wheezing, and Severe . ARMAND inhibitor contraindicated secondary to relative hypotension and Severe . Severe sepsis has resolved. Do not see need for continued antibiotics. Renal status and potassium normal. Will continue Mucinex DM BID for 1 week to help decrease cough and congestion- then as needed. Medically stable for discharge to home. Will have patient F/U with Dr Rangel in 1 week Recommend recheck BMP and magnesium secondary to Lasix use. Can F/U with Dr. Rico in 2 weeks. Continue oncological care by Dr Hannon. See orders for details. After discharge orders written, patient started to having increasing nausea and vomiting in the afternoon. Will these symptoms, held discharge as patient would not be able to do well at home. 05/17/17 Discharge plans held yesterday secondary to increased nausea and vomiting yesterday afternoon. Vancomycin stopped yesterday. Will continue with Zosyn coverage while hospitalized. Lasix changed to Bumex 1mg am and [address] Laguna. Creatinine and potassium stable. Encourage activities. Monitor lab. Will continue hospitalization-pt still with wheezing and nausea, and not feeling ready for discharge today. 05/18/17 Hemoglobin with decrease to 7.5 today. Patient less wheezy today, but needing O2. Will give 1 unit of pRBC to help her cardiopulmonary performance. Lasix 40mg IV after transfusion. Wean O2 as able. Encourage continued activities. Recheck lab in am.
[2017-05-18] MEDS: PRAVASTATIN 40 MG TABLET PO SCH (20:09)
[2017-05-19] MEDS ORDERED: MORPHINE SULFATE 2mg INJECTION IVP PRN (00:13)
[2017-05-19] MEDS ORDERED: NITROGLYCERIN 0.4 MG SUBLINGUAL TABLET SL PRN (00:16)
[2017-05-19] MEDS: PIPERACILLIN/TAZOBACTAM 3.375 GM in NS 100 ML IV SCH ×3 (00:33→14:38)
[2017-05-19] MEDS: SALINE FLUSH 10ml SYRINGE IVF PRN ×2 (00:34→06:44)
[2017-05-19] MEDS: LEVOTHYROXINE 137 MCG TABLET PO SCH (06:44)
[2017-05-19] MEDS: NS FLUSH BAG 500ml IV PRN (06:44)
[2017-05-19] MEDS: ALBUTEROL 2.5mg/3ml (0.083%) NEB AEROSOL SCH ×4 (07:37→19:42)
[2017-05-19] MEDS: BUMETANIDE 1 MG TABLET PO SCH ×2 (08:34→14:19)
[2017-05-19] MEDS: GUAIFENESIN/D-METHORPHAN 600mg/30mg TABLET PO SCH ×2 (08:34→20:31)
[2017-05-19] MEDS: FERROUS GLUCONATE 324 MG TABLET PO SCH ×2 (08:34→17:50)
[2017-05-19] MEDS: ASCORBIC ACID 500 MG TABLET PO SCH (08:35)
[2017-05-19] MEDS: IBRANCE 125 MG PO SCH (08:35)
[2017-05-19] MEDS: OMEPRAZOLE 20 MG CAPSULE PO SCH ×2 (08:35→17:48)
[2017-05-19] MEDS: SALINE 0.65% NASAL SPRAY 44 ML BOTTLE EA NOSTRIL SCH ×4 (08:35→20:31)
--- NOTE | 2017-05-19 13:48 | Progress Note ---
- Date 05/19/17 Subjective: F/U: Sepsis, pneumonia, Severe Feeling better this morning. Transfusion not able to be done until late last night (lab thought would not have blood ready until today). Hemoglobin improved to 9.4; pt feels her breathing is better. Less SOA and decreasing cough. Eating well. Stools stable. Strength fair. No f/c. Objective Vital signs: Temperature 98.8 F 05/19/17 07:34 Pulse Rate 90 05/19/17 08:00 Respiratory Rate 20 05/19/17 07:37 Blood Pressure 101/64 05/19/17 07:34 Pulse Oximetry 93 05/19/17 07:37 Height/Weight/BMI: Height 1.55 m Weight 76.3 kg Body Mass Index 31.9 - Constitutional Present: well nourished, well developed, obese, cooperative - Routine HEENT Exam Head: Present: normocephalic, atraumatic Eye: Present: EOMI, PERRL ENT: Present: mucous membranes moist - Routine Respiratory Exam Present: decreased breath sounds. Absent: respiratory distress, wheezes, crackles - Routine Cardiovascular Exam Present: RRR, murmur - Routine Abdominal Exam Present: soft, normoactive bowel sounds, non distended, non tender - Routine Extremities Exam Present: cyanosis, clubbing, edema (+2BLE ) - Routine Musculoskeletal Exam Musculoskeletal: Present: no clubbing or cyanosis, normal strength - Routine Skin Exam Present: dry, warm - Routine Neurological Exam Present: alert, CN II-XII intact, moving all extremities, vision grossly intact , hearing grossly intact, normal speech. Absent: motor deficit, altered mental status - Routine Psychiatric Exam Present: normal affect, normal thought process, cooperative Results - Labs CBC & Chem 7: 05/19/17 07:47 05/19/17 07:47 Microbiology Results: Microbiology 05/11/17 15:53 Sputum, Expectorated Gram Stain - Final 05/11/17 15:53 Sputum, Expectorated Sputum Culture - Final Normal Respiratory Holly Present Assessment and Plan (1) Severe sepsis Current visit: Yes Status: Resolved (2) Leukocytosis Current visit: Yes Status: Resolved (3) Anemia Current visit: Yes Status: Acute (4) Hypothyroid Current visit: Yes Status: Chronic (5) Peripheral edema Current visit: Yes Status: Chronic (6) Chest pain Current visit: Yes Status: Resolved (7) GERD (gastroesophageal reflux disease) Current visit: Yes Status: Acute (8) Metastatic breast cancer Current visit: Yes Status: Chronic (9) Asplenia Current visit: Yes Status: Chronic (10) Hyponatremia Current visit: Yes Status: Acute (11) Congestive heart failure due to valvular disease Current visit: Yes Status: Chronic (12) Aortic stenosis, severe Current visit: Yes Status: Chronic (13) Hypokalemia Current visit: Yes Status: Acute Assessment and Plan: Assessment Sepsis (POA) - suspect secondary to pneumonia Pneumonia Leukocytosis (POA) - resolved anemia with melena - Transfusion 1 unit pRBC 05/11/17 GERD - Hiatal Hernia found on EGD Breast cancer with mets to lung, bone Hypoxemia Asplenia Hypothyroid Hypervolemic hyponatremia (POA) - resolved Dysphagia Weakness CHF secondary to valvular heart disease Severe aortic stenosis CAD Hypokalemia (Not POA) - secondary to diuretics Obesity with BMI 32.7 Plan Hemoglobin improved to 9.4 post transfusion (done early this morning). Breathing better post transfusion. Potassium, creatinine and blood pressure stable with oral Bumex. Will stop Zosyn. Need for antibiotic therapy resolved. Recheck blood counts tomorrow - if stable, likely able to discharge. Hospital Course Summary Disclaimer: The visit summary below is not to be considered part of the above Progress Note. Hospital Course: Assessment Suspect pulmonary source of sepsis, but no source identified. WBC is trending down. Continue Vanco and Zosyn. Will avoid aggressive diuresis given critical . d/w Dr. Laguna. Appreciate his input. Will give patient time to consider hospice and/or DNR. Supplementing K. TSH elevated. fT4 pending. May need to increase Synthroid. 05/14/17 15:57 Sepsis, suspect pneumonia anemia with melena GERD breast cancer with mets to lung, bone hypoxemia asplenia leukocytosis hypothyroid hypervolemic hyponatremia? dysphagia weakness HFpEF aortic stenosis Hypokalemia 05/11/17 Transfusing patient 1 unit PRBCs. She is npo. PPI bid. c/s Dr. Kinney. Continue vanco and zosyn for sepsis. Blood cx pending. Possible pulmonary source. Repeat procalcitonin. Will add diuretics and obtain an echo with elevated BNP and murmur 05/12/17 Will repeat CXR. Sputum with early growth. Blood cx with NGTD. WBC is down. Procalcitonin up to 0.14. Monitor. Continue Vanco, Zosyn. Continue to monitor hgb, transfuse if needed. Start iron. EGD was negative. Continue bid PPI, but change to oral, d/t frequent GERD sx. Echo shows significant valvular disease, diastolic dysfunction, moderate pulmonary HTN. Consulting Dr. Laguna. Holding palbociclib d/t infection. Consult ST d/t choking. May benefit from being up to chair for meals. Will ask PT/OT to see. 05/13/17 She continues to slowly improve. Persistent cough, with choking- Likely multifactorial. Continue Nebs, PPI BID, Abx. ST consult. Restart Vit C at pt. request. Continue fluid management; holding diuretics as BP is lower, mildly dry on labs - start daily oral Lasix in AM. She does continue to have some peripheral edema- monitor. Will start Bladder training and remove later today. D/W RN. Replace KCL today and recheck in AM. HGB is a bit lower today. FOB +. EGD normal. Continue to monitor. Higher risk for any surgical procedures. PT/OT consult. Home meds reviewed. Restart Synthroid. Check TSH. Will need assistance with DC planning- HH vs. inpt. recovery. 05/14/17 Suspect pulmonary source of sepsis, but no source identified. WBC is trending down. Continue Vanco and Zosyn. Day 4 of abx. Will avoid aggressive diuresis given critical . d/w Dr. Laguna. Appreciate his input. Patient not inclined to have DNR. Increase K. TSH elevated and fT4 is low, increase Synthroid. Palbociclib on hold d/t infection. 05/15/17 Continue Vancomycin and Zosyn for pulmonary coverage - Day #5. Recheck CXR tomorrow to assess pulmonary effusions. Wean O2 - maintaining saturations well on low flow O2 (mainly using for patient comfort). Start Mucinex DM BID to help decrease cough and congestion. Continue Lasix to help diuresis. Additional oral potassium of 10mEq today at noon as potassium decreased to 3.3. Encourage activities. Potentially discharge in near future if patient continues to make gains. 05/16/17 Weaned to room air. WBC normal at 6.[address] Laguna about patient's volume status-he did give additional Bumex IV this am. Recommends increasing Lasix to 40mg in am with 40mg in afternoon. BB contraindicated secondary to relative hypotension, wheezing, and Severe . ARMAND inhibitor contraindicated secondary to relative hypotension and Severe . Severe sepsis has resolved. Do not see need for continued antibiotics. Renal status and potassium normal. Will continue Mucinex DM BID for 1 week to help decrease cough and congestion- then as needed. Medically stable for discharge to home. Will have patient F/U with Dr Rangel in 1 week Recommend recheck BMP and magnesium secondary to Lasix use. Can F/U with Dr. Rico in 2 weeks. Continue oncological care by Dr Hannon. See orders for details. After discharge orders written, patient started to having increasing nausea and vomiting in the afternoon. Will these symptoms, held discharge as patient would not be able to do well at home. 05/17/17 Discharge plans held yesterday secondary to increased nausea and vomiting yesterday afternoon. Vancomycin stopped yesterday. Will continue with Zosyn coverage while hospitalized. Lasix changed to Bumex 1mg am and [address] Laguna. Creatinine and potassium stable. Encourage activities. Monitor lab. Will continue hospitalization-pt still with wheezing and nausea, and not feeling ready for discharge today. 05/18/17 Hemoglobin with decrease to 7.5 today. Patient less wheezy today, but needing O2. Will give 1 unit of pRBC to help her cardiopulmonary performance. Lasix 40mg IV after transfusion. Wean O2 as able. Encourage continued activities. Recheck lab in am. 05/19/17 Hemoglobin improved to 9.4 post transfusion (done early this morning). Breathing better post transfusion. Potassium, creatinine and blood pressure stable with oral Bumex. Will stop Zosyn. Need for antibiotic therapy resolved. Recheck blood counts tomorrow - if stable, likely able to discharge.
[2017-05-19] MEDS: PRAVASTATIN 40 MG TABLET PO SCH (20:31)
[2017-05-20] MEDS: LEVOTHYROXINE 137 MCG TABLET PO SCH (05:50)
[2017-05-20] MEDS: ALBUTEROL 2.5mg/3ml (0.083%) NEB AEROSOL SCH ×2 (06:38→10:20)
[2017-05-20 08:02] VITALS: BP 101/67; TEMP 97
[2017-05-20] MEDS: GUAIFENESIN/D-METHORPHAN 600mg/30mg TABLET PO SCH (08:13)
[2017-05-20] MEDS: OMEPRAZOLE 20 MG CAPSULE PO SCH (08:13)
[2017-05-20] MEDS: BUMETANIDE 1 MG TABLET PO SCH (08:13)
[2017-05-20] MEDS: IBRANCE 125 MG PO SCH (08:14)
[2017-05-20] MEDS: ASCORBIC ACID 500 MG TABLET PO SCH (08:14)
[2017-05-20] MEDS: SALINE 0.65% NASAL SPRAY 44 ML BOTTLE EA NOSTRIL SCH (08:14)
[2017-05-20] MEDS: FERROUS GLUCONATE 324 MG TABLET PO SCH (08:17)
--- NOTE | 2017-05-20 09:39 | Progress Note ---
<Socorro Mullen V - Last Filed: 05/20/17 09:35> - Date 05/20/17 Subjective: Brenda is seen this morning while resting following breakfast. She reports that she is feeling good today and is happy that her "belching" pain has improved now that she uses a carbonated drink to improve symptoms following eating. She denies having chest pain or shortness of breath. No GI complaints currently. Objective Vital signs: Temperature 97.0 F 05/20/17 08:00 Pulse Rate 88 05/20/17 08:00 Respiratory Rate 18 05/20/17 08:00 Blood Pressure 101/67 05/20/17 08:00 Pulse Oximetry 92 05/20/17 08:00 Height/Weight/BMI: Height 1.55 m Weight 73.3 kg Body Mass Index 31.9 - Constitutional Present: no acute distress, well nourished, well developed - Routine HEENT Exam Eye: Present: EOMI ENT: Present: mucous membranes moist, dentition normal - Routine Respiratory Exam Present: CTA bilaterally. Absent: wheezes - Routine Cardiovascular Exam Present: RRR, S1, S2, murmur - Routine Abdominal Exam Present: soft, normoactive bowel sounds, non distended. Absent: tenderness - Routine Extremities Exam Present: no edema - Routine Skin Exam Present: intact, dry, warm - Routine Neurological Exam Present: alert, oriented X3, CN II-XII intact - Routine Lymphatic Exam Lymphatic: Absent: adenopathy - Routine Psychiatric Exam Present: normal affect, cooperative Results - Labs CBC & Chem 7: 05/20/17 04:36 05/20/17 04:36 Microbiology Results: Microbiology 05/11/17 15:53 Sputum, Expectorated Gram Stain - Final 05/11/17 15:53 Sputum, Expectorated Sputum Culture - Final Normal Respiratory Holly Present Assessment and Plan (1) Anemia Status: Acute (2) Leukocytosis Status: Resolved (3) Severe sepsis Status: Resolved (4) Hypothyroid Status: Chronic (5) Peripheral edema Status: Chronic (6) Chest pain Status: Resolved (7) GERD (gastroesophageal reflux disease) Status: Acute (8) Metastatic breast cancer Status: Chronic (9) Asplenia Status: Chronic (10) Hyponatremia Status: Acute (11) Aortic stenosis, severe Status: Chronic (12) Congestive heart failure due to valvular disease Status: Chronic (13) Hypokalemia Status: Acute Assessment and Plan: Assessment Sepsis (POA) - suspect secondary to pneumonia Pneumonia Leukocytosis (POA) - resolved anemia with melena - Transfusion 1 unit pRBC 05/11/17 GERD - Hiatal Hernia found on EGD Breast cancer with mets to lung, bone Hypoxemia Asplenia Hypothyroid Hypervolemic hyponatremia (POA) - resolved Dysphagia Weakness CHF secondary to valvular heart disease Severe aortic stenosis CAD Hypokalemia (Not POA) - secondary to diuretics Obesity with BMI 32.7 Plan Hemoglobin remains stable. 9.3 today. Continue with breathing treatments Antibiotic course completed Overall stable. Likely can discharge in the near future Hospital Course Summary Disclaimer: The visit summary below is not to be considered part of the above Progress Note. Hospital Course: Assessment Suspect pulmonary source of sepsis, but no source identified. WBC is trending down. Continue Vanco and Zosyn. Will avoid aggressive diuresis given critical . d/w Dr. Laguna. Appreciate his input. Will give patient time to consider hospice and/or DNR. Supplementing K. TSH elevated. fT4 pending. May need to increase Synthroid. 05/14/17 15:57 Sepsis, suspect pneumonia anemia with melena GERD breast cancer with mets to lung, bone hypoxemia asplenia leukocytosis hypothyroid hypervolemic hyponatremia? dysphagia weakness HFpEF aortic stenosis Hypokalemia 05/11/17 Transfusing patient 1 unit PRBCs. She is npo. PPI bid. c/s Dr. Kinney. Continue vanco and zosyn for sepsis. Blood cx pending. Possible pulmonary source. Repeat procalcitonin. Will add diuretics and obtain an echo with elevated BNP and murmur 05/12/17 Will repeat CXR. Sputum with early growth. Blood cx with NGTD. WBC is down. Procalcitonin up to 0.14. Monitor. Continue Vanco, Zosyn. Continue to monitor hgb, transfuse if needed. Start iron. EGD was negative. Continue bid PPI, but change to oral, d/t frequent GERD sx. Echo shows significant valvular disease, diastolic dysfunction, moderate pulmonary HTN. Consulting Dr. Laguna. Holding palbociclib d/t infection. Consult ST d/t choking. May benefit from being up to chair for meals. Will ask PT/OT to see. 05/13/17 She continues to slowly improve. Persistent cough, with choking- Likely multifactorial. Continue Nebs, PPI BID, Abx. ST consult. Restart Vit C at pt. request. Continue fluid management; holding diuretics as BP is lower, mildly dry on labs - start daily oral Lasix in AM. She does continue to have some peripheral edema- monitor. Will start Bladder training and remove later today. D/W RN. Replace KCL today and recheck in AM. HGB is a bit lower today. FOB +. EGD normal. Continue to monitor. Higher risk for any surgical procedures. PT/OT consult. Home meds reviewed. Restart Synthroid. Check TSH. Will need assistance with DC planning- HH vs. inpt. recovery. 05/14/17 Suspect pulmonary source of sepsis, but no source identified. WBC is trending down. Continue Vanco and Zosyn. Day 4 of abx. Will avoid aggressive diuresis given critical . d/w Dr. Laguna. Appreciate his input. Patient not inclined to have DNR. Increase K. TSH elevated and fT4 is low, increase Synthroid. Palbociclib on hold d/t infection. 05/15/17 Continue Vancomycin and Zosyn for pulmonary coverage - Day #5. Recheck CXR tomorrow to assess pulmonary effusions. Wean O2 - maintaining saturations well on low flow O2 (mainly using for patient comfort). Start Mucinex DM BID to help decrease cough and congestion. Continue Lasix to help diuresis. Additional oral potassium of 10mEq today at noon as potassium decreased to 3.3. Encourage activities. Potentially discharge in near future if patient continues to make gains. 05/16/17 Weaned to room air. WBC normal at 6.[address] Laguna about patient's volume status-he did give additional Bumex IV this am. Recommends increasing Lasix to 40mg in am with 40mg in afternoon. BB contraindicated secondary to relative hypotension, wheezing, and Severe . ARMAND inhibitor contraindicated secondary to relative hypotension and Severe . Severe sepsis has resolved. Do not see need for continued antibiotics. Renal status and potassium normal. Will continue Mucinex DM BID for 1 week to help decrease cough and congestion- then as needed. Medically stable for discharge to home. Will have patient F/U with Dr Rangel in 1 week Recommend recheck BMP and magnesium secondary to Lasix use. Can F/U with Dr. Rico in 2 weeks. Continue oncological care by Dr Hannon. See orders for details. After discharge orders written, patient started to having increasing nausea and vomiting in the afternoon. Will these symptoms, held discharge as patient would not be able to do well at home. 05/17/17 Discharge plans held yesterday secondary to increased nausea and vomiting yesterday afternoon. Vancomycin stopped yesterday. Will continue with Zosyn coverage while hospitalized. Lasix changed to Bumex 1mg am and [address] Laguna. Creatinine and potassium stable. Encourage activities. Monitor lab. Will continue hospitalization-pt still with wheezing and nausea, and not feeling ready for discharge today. 05/18/17 Hemoglobin with decrease to 7.5 today. Patient less wheezy today, but needing O2. Will give 1 unit of pRBC to help her cardiopulmonary performance. Lasix 40mg IV after transfusion. Wean O2 as able. Encourage continued activities. Recheck lab in am. 05/19/17 Hemoglobin improved to 9.4 post transfusion (done early this morning). Breathing better post transfusion. Potassium, creatinine and blood pressure stable with oral Bumex. Will stop Zosyn. Need for antibiotic therapy resolved. Recheck blood counts tomorrow - if stable, likely able to discharge. <Yg Jordan - Last Filed: 05/20/17 14:08> - Date 05/20/17 Objective Vital signs: Temperature 97.0 F 05/20/17 08:00 Pulse Rate 91 05/20/17 08:00 Respiratory Rate 20 05/20/17 10:22 Blood Pressure 101/67 05/20/17 08:00 Pulse Oximetry 96 05/20/17 10:31 Height/Weight/BMI: Height 1.55 m Weight 73.3 kg Body Mass Index 31.9 Results - Labs CBC & Chem 7: 05/20/17 04:36 05/20/17 04:36 Microbiology Results: Microbiology 05/11/17 15:53 Sputum, Expectorated Gram Stain - Final 05/11/17 15:53 Sputum, Expectorated Sputum Culture - Final Normal Respiratory Holly Present Assessment and Plan (1) Severe sepsis Status: Resolved (2) Leukocytosis Status: Resolved (3) Anemia Status: Acute (4) Hypothyroid Status: Chronic (5) Peripheral edema Status: Chronic (6) Chest pain Status: Resolved (7) GERD (gastroesophageal reflux disease) Status: Acute (8) Metastatic breast cancer Status: Chronic (9) Asplenia Status: Chronic (10) Hyponatremia Status: Acute (11) Congestive heart failure due to valvular disease Status: Chronic (12) Aortic stenosis, severe Status: Chronic (13) Hypokalemia Status: Acute Assessment and Plan: Have independently interviewed and examined pt. Chart reviewed. Case discussed with my [employer]. Care plan developed with my supervision; agree with above. Doing well this morning. Breath feels better. Less SOA. Eating well. Lungs: decreased CV: regular with murmur MSE: awake alert appropriate Plan: With improvements of breathing and hemoglobin will discharge to home. See orders for details. Hospital Course Summary Disclaimer: The visit summary below is not to be considered part of the above Progress Note.
[2017-05-20 10:31] VITALS: RESP 20
[2017-05-20 10:34] VITALS: O2SAT 96
[2017-05-20 10:41] VITALS: PULSE 91
--- NOTE | 2017-05-20 11:04 | Discharge Summary ---
<Socorro Mullen V - Last Filed: 05/20/17 11:00> Discharge Information Date of admission: 05/10/17 23:18 Anticipated date of discharge: 05/20/17 Attending Physician: Yg Jordan MD Primary care physician: Darius Rangel II, MD Consults: Physician Consult- Dr Kinney- General surgeon Physician Consult- Dr Chucho Laguna- [employer] Interpreter - Discharge Diagnosis (1) Anemia Status: Acute (2) Leukocytosis Status: Resolved (3) Severe sepsis Status: Resolved (4) Hypothyroid Status: Chronic (5) Peripheral edema Status: Chronic (6) Chest pain Status: Resolved (7) GERD (gastroesophageal reflux disease) Status: Acute (8) Metastatic breast cancer Status: Chronic (9) Asplenia Status: Chronic (10) Hyponatremia Status: Acute (11) Aortic stenosis, severe Status: Chronic (12) Congestive heart failure due to valvular disease Status: Chronic (13) Hypokalemia Status: Acute - Procedures Procedures: 05/11/17- Esophagogastroduodenoscopy.- Dr Kinney - Laboratory Labs: 05/20/17 04:36 05/20/17 04:36 Laboratory Tests 05/16/17 21:50 Stl C. diff Tox B Gene Negative Laboratory Tests 05/12/17 01:00 Stool Occult Blood Positive A Laboratory Tests 05/11/17 18:16 Urine Osmolality 145 Laboratory Tests 05/11/17 18:16 Ur Random Sodium 36 - Microbiology Microbiology 05/11/17 15:53 Sputum, Expectorated Gram Stain - Final 05/11/17 15:53 Sputum, Expectorated Sputum Culture - Final Normal Respiratory Holly Present - Radiology Radiology: 05/10- Chest X-ray- Impression: 1. Cardiomegaly with mild pulmonary vascular congestion and small pleural effusions. 2. Right greater than left basilar airspace opacities likely related to relaxation atelectasis, although in the appropriate clinical setting, a superimposed infectious/inflammatory process would be difficult to exclude. 05/11- ECHO- 1. Left atrial enlargement. 2. Marked concentric LVH. 3. Hyperdynamic left ventricle, EF of 78%. 4. Possible subaortic obstruction (suggested on the LVOT Doppler velocity signal morphology, although velocity remains within upper normal range at rest 1.4 m/sec). 5. Critical calcific aortic valve stenosis with a mean pressure gradient of 65 mmHg. 6. Mitral annular calcification with mild to moderate mitral stenosis (peak and mean pressure gradient of 13 and 4 mmHg). 7. Mild mitral regurgitation. 8. Mild aortic regurgitation. 9. Moderate tricuspid regurgitation. 10. Moderate pulmonary hypertension, systolic PA pressure estimated at 54 mmHg. 11. Diastolic dysfunction, grade II/IV (pseudonormal pattern). 12. IVC is not well seen on a limited subcostal view. 05/12- Chest X-ray- Impression: Stable pleural effusions and lower lobe airspace disease. 05/16- Chest Xray- Impression: Slight improvement in small pleural effusions. - Pathology None History of Present Illness HPI: 87-year-old female presents to the emergency room with chest pain. She says it feels like GERD/heartburn. has been intermittent over the past 2 weeks and spent much worse with activity. She was admitted to via [facility] about a week ago what sounds like for a workup for this. Apparently she had a cardiac workup, but is not clear to me if she had a GI workup as well. She does report that she had some polyps taken out and stomach 2 years ago but she doesn't seem to remember endoscopy in the last week or 2. She says drinking hot water helps it, she also describes that sounds like she's gotten either iron infusions or perhaps other shots for anemia in the past few days with her oncologist. She is seeing for her breast cancer/lung cancer treatments she denies any fever or chills she denies any productive cough. She denies nausea vomiting she denies any bloody stools but she says she has black stools from iron she is taking. She denies any skin rash or areas that she thinks are infected on her skin. For complete details of the H&P refer to that document. Objective Vital signs: Temperature 97.0 F 05/20/17 08:00 Pulse Rate 91 05/20/17 08:00 Respiratory Rate 20 05/20/17 10:22 Blood Pressure 101/67 05/20/17 08:00 Pulse Oximetry 96 05/20/17 10:31 Height/Weight/BMI: Height 1.55 m Weight 73.3 kg Body Mass Index 31.9 - Constitutional Present: no acute distress, well nourished, well developed - Routine HEENT Exam Eye: Present: EOMI ENT: Present: mucous membranes moist, dentition normal - Routine Respiratory Exam Present: CTA bilaterally. Absent: wheezes - Routine Cardiovascular Exam Present: RRR, S1, S2. Absent: murmur - Routine Abdominal Exam Present: soft, normoactive bowel sounds, non distended. Absent: tenderness - Routine Extremities Exam Present: pulses intact, normal capillary refill - Routine Skin Exam Present: intact, dry, warm - Routine Neurological Exam Present: alert, oriented X3, CN II-XII intact - Routine Lymphatic Exam Lymphatic: Absent: adenopathy - Routine Psychiatric Exam Present: normal affect, cooperative Hospital Course This is a general summary of the patient's hospital course. For more details refer to the complete medical record. Hospital course: Assessment Suspect pulmonary source of sepsis, but no source identified. WBC is trending down. Continue Vanco and Zosyn. Will avoid aggressive diuresis given critical . d/w Dr. Laguna. Appreciate his input. Will give patient time to consider hospice and/or DNR. Supplementing K. TSH elevated. fT4 pending. May need to increase Synthroid. 05/14/17 15:57 Sepsis, suspect pneumonia anemia with melena GERD breast cancer with mets to lung, bone hypoxemia asplenia leukocytosis hypothyroid hypervolemic hyponatremia? dysphagia weakness HFpEF aortic stenosis Hypokalemia 05/11/17 Transfusing patient 1 unit PRBCs. She is npo. PPI bid. c/s Dr. Kinney. Continue vanco and zosyn for sepsis. Blood cx pending. Possible pulmonary source. Repeat procalcitonin. Will add diuretics and obtain an echo with elevated BNP and murmur 05/12/17 Will repeat CXR. Sputum with early growth. Blood cx with NGTD. WBC is down. Procalcitonin up to 0.14. Monitor. Continue Vanco, Zosyn. Continue to monitor hgb, transfuse if needed. Start iron. EGD was negative. Continue bid PPI, but change to oral, d/t frequent GERD sx. Echo shows significant valvular disease, diastolic dysfunction, moderate pulmonary HTN. Consulting Dr. Laguna. Holding palbociclib d/t infection. Consult ST d/t choking. May benefit from being up to chair for meals. Will ask PT/OT to see. 05/13/17 She continues to slowly improve. Persistent cough, with choking- Likely multifactorial. Continue Nebs, PPI BID, Abx. ST consult. Restart Vit C at pt. request. Continue fluid management; holding diuretics as BP is lower, mildly dry on labs - start daily oral Lasix in AM. She does continue to have some peripheral edema- monitor. Will start Bladder training and remove later today. D/W RN. Replace KCL today and recheck in AM. HGB is a bit lower today. FOB +. EGD normal. Continue to monitor. Higher risk for any surgical procedures. PT/OT consult. Home meds reviewed. Restart Synthroid. Check TSH. Will need assistance with DC planning- HH vs. inpt. recovery. 05/14/17 Suspect pulmonary source of sepsis, but no source identified. WBC is trending down. Continue Vanco and Zosyn. Day 4 of abx. Will avoid aggressive diuresis given critical . d/w Dr. Laguna. Appreciate his input. Patient not inclined to have DNR. Increase K. TSH elevated and fT4 is low, increase Synthroid. Palbociclib on hold d/t infection. 05/15/17 Continue Vancomycin and Zosyn for pulmonary coverage - Day #5. Recheck CXR tomorrow to assess pulmonary effusions. Wean O2 - maintaining saturations well on low flow O2 (mainly using for patient comfort). Start Mucinex DM BID to help decrease cough and congestion. Continue Lasix to help diuresis. Additional oral potassium of 10mEq today at noon as potassium decreased to 3.3. Encourage activities. Potentially discharge in near future if patient continues to make gains. 05/16/17 Weaned to room air. WBC normal at 6.[address] Laguna about patient's volume status-he did give additional Bumex IV this am. Recommends increasing Lasix to 40mg in am with 40mg in afternoon. BB contraindicated secondary to relative hypotension, wheezing, and Severe . ANGEL inhibitor contraindicated secondary to relative hypotension and Severe . Severe sepsis has resolved. Do not see need for continued antibiotics. Renal status and potassium normal. Will continue Mucinex DM BID for 1 week to help decrease cough and congestion- then as needed. Medically stable for discharge to home. Will have patient F/U with Dr Rangel in 1 week Recommend recheck BMP and magnesium secondary to Lasix use. Can F/U with Dr. Rico in 2 weeks. Continue oncological care by Dr Hannon. See orders for details. After discharge orders written, patient started to having increasing nausea and vomiting in the afternoon. Will these symptoms, held discharge as patient would not be able to do well at home. 05/17/17 Discharge plans held yesterday secondary to increased nausea and vomiting yesterday afternoon. Vancomycin stopped yesterday. Will continue with Zosyn coverage while hospitalized. Lasix changed to Bumex 1mg am and [address] Laguna. Creatinine and potassium stable. Encourage activities. Monitor lab. Will continue hospitalization-pt still with wheezing and nausea, and not feeling ready for discharge today. 05/18/17 Hemoglobin with decrease to 7.5 today. Patient less wheezy today, but needing O2. Will give 1 unit of pRBC to help her cardiopulmonary performance. Lasix 40mg IV after transfusion. Wean O2 as able. Encourage continued activities. Recheck lab in am. 05/19/17 Hemoglobin improved to 9.4 post transfusion (done early this morning). Breathing better post transfusion. Potassium, creatinine and blood pressure stable with oral Bumex. Will stop Zosyn. Need for antibiotic therapy resolved. Recheck blood counts tomorrow - if stable, likely able to discharge. 05/20/17- Discharge Dr Laguna recommends Bumex BID for ongoing diuresis at time of discharge. Beta yari and Angel I both contraindicated due to hypotension, wheezing and severe Aortic stenosis. Lasix is discontinued at time of discharge. Other home medications remain the same. Brenda is instructed to follow up with PCP Dr Rangel within 1 week. She is discharged in stable condition home and will follow with home health. Time spent with patient: discharge greater than 30 minutes Discharge Plan - Discharge Disposition Discharge Date: 05/20/17 Disposition: Discharged Home, Self-Care *Condition: Stable *Reason For Visit: Chest pain - Discharge Medications *Discharge Medications: New Guaifenesin/Dm [Mucinex Dm] 1 tab PO BID tablet Levothyroxine Tab [Synthroid] 137 mcg PO ACB #30 tab Potassium Chloride [K-Dur] 20 meq PO TIDWM #90 tab Bumetanide Tab [Bumex Tab] 1 mg PO [id number] #30 tab Continue Nitroglycerin [Nitrostat] 0.4 mg SL Q5MIN #0 Vitamin B Complex 1 tab PO DAILY #0 Palbociclib [Ibrance] 125 mg PO DAILY Ferrous Sulfate [Feosol] 324 mg PO DAILY Palbociclib [Ibrance] 125 mg PO DAILY Albuterol Sulfate 2.5 mg IH BID #0 Ascorbic Acid [Vitamin C] 500 mg PO DAILY #0 Pravastatin Sodium 40 mg PO HS #0 Changed Omeprazole 20 mg PO BID #0 Discontinued Potassium Chloride 20 meq PO WB #0 Torsemide [Torsemide] 10 mg PO DAILY Levofloxacin [Levaquin] 500 mg PO DAILY Propranolol HCl 20 mg PO BID #0 Levothyroxine Tab [Synthroid] 125 mcg PO ACB #0 - Discharge Packet/Instructions *Diet: Low sodium. May have up to 2 quarts of fluid a day. *Activity: As tolerated. Elevate legs while at rest. *Pain Management/Treatment: Tylenol as needed. *Wound Care: N/A Additional Instructions: Use Mucinex DM twice a day for 1 week to help decrease cough and congestion, then as needed. Use Lasix (furosemide) 40mg in morning and at 1400 to help decrease edema. Take potassium three times a day with food. Use Omeprazole 20mg Twice a day before meals. Take Iron with Vitamin C for maximum effect. Your thyroid medication was increased during hospitalization. Use new prescription. *Expected Signs/Symptoms: Improvement of breathing. *Notify Physician if: Temp >100.4. Increasing difficulty breathing. *During Business Hours Contact: Dr Rangel *After Business Hours Contact: Call [facility] and have Dr Rangel or his covering physician paged. *Pending Lab/Results: No Pending Lab - Referrals/Follow Up *Referrals/Follow Up: Darius Rangel II, MD [Family Provider] - (follow up with Dr Rangel in 1 week. Call for apt.) - Patient Handouts Patient Handouts: [facility] Congestive Heart Failure, Chest Pain (GEN) - Dismissal Complete Discharge Instructions are:: Complete <Yg Jordan - Last Filed: 05/20/17 14:10> Discharge Information Date of admission: 05/10/17 23:18 Attending Physician: Yg Jordan MD Primary care physician: Darius Rangel II, MD Consults: 05/11/17 10:03 Physician Consult [CONS] Routine Consulting Provider: Keenan Kinney Reason For Exam: anemia, suspect gi bleed Ordering Provider has Notified Fermenter Champagne: Yes 05/12/17 14:33 Physician Consult [CONS] Routine Consulting Provider: Hernan Laguna Reason For Exam: valvular disease, diastolic dysfunction Ordering Provider has Notified Fermenter Champagne: Yes - Discharge Diagnosis (1) Anemia Status: Acute (2) Hypothyroid Status: Chronic (3) Peripheral edema Status: Chronic (4) GERD (gastroesophageal reflux disease) Status: Acute (5) Metastatic breast cancer Status: Chronic (6) Asplenia Status: Chronic (7) Hyponatremia Status: Acute (8) Congestive heart failure due to valvular disease Status: Chronic (9) Aortic stenosis, severe Status: Chronic (10) Hypokalemia Status: Acute - Laboratory Labs: 05/20/17 04:36 05/20/17 04:36 - Microbiology Microbiology 05/11/17 15:53 Sputum, Expectorated Gram Stain - Final 05/11/17 15:53 Sputum, Expectorated Sputum Culture - Final Normal Respiratory Holly Present Objective Vital signs: Temperature 97.0 F 05/20/17 08:00 Pulse Rate 91 05/20/17 08:00 Respiratory Rate 20 05/20/17 10:22 Blood Pressure 101/67 05/20/17 08:00 Pulse Oximetry 96 05/20/17 10:31 Height/Weight/BMI: Height 1.55 m Weight 73.3 kg Body Mass Index 31.9 Hospital Course This is a general summary of the patient's hospital course. For more details refer to the complete medical record. Attestation Narriative - Attestation Attestation Narrative: 05/20/17 14:09 I have independently interviewed and examined pt prior to discharge. See my progress note from today for details. Medically stable for discharge to home.
== END 2017-05-20 12:08 | disposition home or self-care (01) | DRG 871 ==
LOC: ED 20:22 → MED 23:18 → SUATTDRO 23:18 → MED 05-11 02:10
PROVIDERS: ADMIT Pediatrics; ATTEND Hospitalist
PROC: END.EGD (2017-05-11 12:00)

== ENCOUNTER 2017-09-06 11:59 | Inpatient (IN) ==
[2017-09-06] MEDS ORDERED: NS 1,000 ML IV ONE (12:13)
[2017-09-06] MEDS ORDERED: PANTOPRAZOLE 40 MG INJECTION IVP ONE (12:15)
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
--- NOTE | 2017-09-06 12:42 | XRay Report ---
Indication: chest pain PROCEDURE: XR chest 1V: Encounter: Initial Comparison: CT angiogram of the chest dated August 30, 2017 and chest x-ray dated August 30, 2017 Findings: Small pulmonary nodules are better seen on the recent CT scan. There are senescent changes and areas of scarring in both lungs. No lobar consolidative pneumonia or pneumothorax seen. Trace effusions. Heart size is stable. Mediastinal contours and pulmonary vascularity are within normal limits. Impression: No pneumonia. Trace effusions. .
[2017-09-06] MEDS: SALINE FLUSH 10ml SYRINGE IVF PRN ×4 (12:52→23:46)
[2017-09-06] MEDS ORDERED: MORPHINE SULFATE 2mg INJECTION IVP ONE (13:20)
[2017-09-06 13:47] VITALS: BMI 26.1
[2017-09-06] MEDS ORDERED: ONDANSETRON 4 MG/2 ML INJECTION IVP PRN (15:12)
[2017-09-06] MEDS ORDERED: MORPHINE SULFATE 4mg INJECTION IVP PRN (15:12)
[2017-09-06] MEDS ORDERED: NS 1,000 ML IV SCH (15:15)
[2017-09-06] MEDS ORDERED: METOPROLOL 5mg/5ml INJECTION IVP PRN (15:23)
[2017-09-06] MEDS ORDERED: NITROGLYCERIN 0.4 MG SUBLINGUAL TABLET SL PRN (15:33)
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
[2017-09-06] MEDS ORDERED: FUROSEMIDE 20 MG/2 ML INJECTION IVP ONE (18:00)
[2017-09-06] MEDS ORDERED: CEFTRIAXONE 1 G in NS 100 ML IV SCH (20:30)
[2017-09-06] MEDS: PANTOPRAZOLE 40 MG INJECTION IVP SCH (23:46)
[2017-09-07] MEDS ORDERED: NS 1,000 ML IV SCH (03:15)
[2017-09-07] MEDS ORDERED: LEVOTHYROXINE 125 MCG TABLET PO SCH (06:30)
[2017-09-07 08:28] VITALS: TEMP 97.6
--- NOTE | 2017-09-07 09:27 | Progress Note ---
- Date 09/07/17 Subjective: Patient has gotten 3U of PRBC, continuous IVF as well as fluid boluses over night. Remains hypotensive. Patient continues to request full and aggressive care. Attempted to discuss the severity of all of her conditions, patient states she is not interested in talking about dying and only wants to know how to keep living. She reports she slept well and feels much better than she did when she came to the hospital. Objective Vital signs: Temperature 97.6 F 09/07/17 08:17 Pulse Rate 102 H 09/07/17 08:18 Respiratory Rate 37 H 09/07/17 08:18 Blood Pressure 89/55 09/07/17 08:18 Pulse Oximetry 93 09/07/17 08:18 Height/Weight/BMI: Height 5 ft Weight 60.7 kg Body Mass Index 26.1 - Constitutional Present: no acute distress, cachectic - Routine HEENT Exam Head: Present: normocephalic, atraumatic Eye: Present: EOMI, conjunctivae pink ENT: Present: nares patent - Routine Respiratory Exam Present: CTA bilaterally. Absent: respiratory distress - Routine Cardiovascular Exam Present: murmur - Routine Abdominal Exam Present: soft, non distended - Routine Extremities Exam Present: edema - Routine Skin Exam Present: intact, dry - Routine Neurological Exam Present: alert, oriented X3 Results - Labs CBC & Chem 7: 09/07/17 09:08 09/07/17 03:35 Microbiology Results: Microbiology 09/06/17 18:38 Urine, Voided (Cc/notcc) Urine Culture - Preliminary Culture Initiated - Results Pending Assessment and Plan (1) Symptomatic anemia Problem details: Hgb 5.1 on admission (09/06/17). Current visit: Yes Status: Acute Assessment and Plan: 87-year-old patient of Dr. Quintana admitted to ICU for symptomatic anemia (Hgb 5.1) and suspected GI bleed. Assessment Cardiogenic shock? Hypotension Symptomatic anemia (Hbg 5.1) with chest pain s/p 3U PRBC Suspected GI bleed. Pancytopenia, acute on chronic, present on admission. Hyponatremia Elevated Troponin Breast cancer with mets Plan Continue admission to ICU Will initiate pressors for MAP <60. Will need to place PICC if pressors needed, will attempt volume res to gauge response. Consult Dr. Verma--patient has been told by cardiology that there are no further options other than hospice but patient refuses hospice at this time Consult Dr. Le for surgery evaluation of suspected GI bleed. Obtain fecal occult for confirmation now. Patient is not a good candidate for sedation/ surgical intervention, discussed with patient who requests consult for procedures Monitor serial hemoglobins Q6H and monitor closely for signs of acute bleeding. Continue Protonix 40mg IV BID for GERD and GI protection. Will maintain NPO status. NS 60cc/hr for gentle hydration. s/p boluses overnight Zofran PRN nausea/vomiting. Morphine PRN pain. Metoprolol 5mg IV PRN hypertension, though currently her blood pressure is low. Monitor closely on telemetry. Monitor closely for fluid overload. Encourage incentive spirometry for pulmonary toileting. SCDs and Berlin hose for DVT prophylaxis due to anemia/suspected bleed At the time of exam, the patient's request to be made a DNR. Order changed in the computer. Patient has a poor prognosis and invasive/aggressive care is unlikely to provide life saving measures. Discussed this extensively with patient who still wishes to for aggressive care. Will call family to come for goals of care talk as soon as possible. DVT Prophylaxis: SCD's, BERLIN Hose Resuscitation Status: Do Not Resuscitate - Time spent with patient Time with patient PN: 30 minutes Coordination of Care: >50% of visit spent providing counseling/coordination of care - Physician Narrative Narrative: Date: 09/07/17 Time: 0923 Hospital Course Summary Disclaimer: The visit summary below is not to be considered part of the above Progress Note. Hospital Course: Plan - 09/06/17 (Admission) Admit to inpatient status to ICU under Dr. Read. Consult Dr. Le for surgery evaluation of suspected GI bleed. Obtain fecal occult for confirmation now. Will type, cross and give 2 units now. Monitor serial hemoglobins Q6H and monitor closely for signs of acute bleeding. Initiate Protonix 40mg IV BID for GERD and GI protection. Will maintain NPO status during blood transfusion. NS 60cc/hr for gentle hydration. Zofran PRN nausea/vomiting. Morphine PRN pain. Metoprolol 5mg IV PRN hypertension, though currently her blood pressure is low. Monitor closely on telemetry. Monitor closely for fluid overload. Encourage incentive spirometry for pulmonary toileting. SCDs and Berlin hose for DVT prophylaxis. Upon discharge, patient's care will be returned to her PCP, Dr. Rangel. At the time of exam, the patient's request to be made a DNR. Order changed in the computer. Plan 09/07/17 Continue admission to ICU Will initiate pressors for MAP <60. Will need to place PICC if pressors needed, will attempt volume res to gauge response. Consult Dr. Verma--patient has been told by cardiology that there are no further options other than hospice but patient refuses hospice at this time Consult Dr. Le for surgery evaluation of suspected GI bleed. Obtain fecal occult for confirmation now. Patient is not a good candidate for sedation/ surgical intervention, discussed with patient who requests consult for procedures Monitor serial hemoglobins Q6H and monitor closely for signs of acute bleeding. Continue Protonix 40mg IV BID for GERD and GI protection. Will maintain NPO status. NS 60cc/hr for gentle hydration. s/p boluses overnight Zofran PRN nausea/vomiting. Morphine PRN pain. Metoprolol 5mg IV PRN hypertension, though currently her blood pressure is low. Monitor closely on telemetry. Monitor closely for fluid overload. Encourage incentive spirometry for pulmonary toileting. SCDs and [place] hose for DVT prophylaxis due to anemia/suspected bleed At the time of exam, the patient's request to be made a DNR. Order changed in the computer. Patient has a poor prognosis and invasive/aggressive care is unlikely to provide life saving measures. Discussed this extensively with patient who still wishes to for aggressive care. Will call family to come for goals of care talk as soon as possible.
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
[2017-09-07] MEDS: LACTOBACILLUS (15B cfu) CAPSULE PO SCH ×2 (12:54→19:35)
[2017-09-07] MEDS: PANTOPRAZOLE 40 MG INJECTION IVP SCH (12:54)
--- NOTE | 2017-09-07 17:02 | Discharge Summary ---
Discharge Information Date of admission: 09/06/17 13:15 Anticipated date of discharge: 09/07/17 Attending Physician: Laura Read MD Primary care physician: Darius Rangel II, MD Consults: 09/06/17 15:28 Physician Consult [CONS] Routine Consulting Provider: Wiley Le Reason For Exam: GI Bleed Ordering Provider has Notified Substitute Crossing Guard: No 09/07/17 09:22 Physician Consult [CONS] Routine Consulting Provider: Louis Verma Reason For Exam: elevated troponin Ordering Provider has Notified Substitute Crossing Guard: Yes - Discharge Diagnosis (1) Symptomatic anemia Status: Acute Symptomatic anemia Metastatic cancer Hypotension [place] CAD Probable GI bleed - Laboratory Labs: Laboratory Tests 09/06/17 09/06/17 09/06/17 12:21 12:21 13:02 WBC 2.7 L RBC 1.45 L Hgb 5.1 L* Hct 15.4 L* MCV 106.2 H MCH 35.2 H MCHC 33.1 RDW Std Deviation 70.2 H Plt Count 61 L D MPV 12.7 H Immature Gran % (Auto) 0.0 Neut % (Auto) 48.3 Lymph % (Auto) 44.5 [place] % (Auto) 6.8 Eos % (Auto) 0.0 Baso % (Auto) 0.4 Neut # (Auto) 1.3 L Lymph # (Auto) 1.2 [place] # (Auto) 0.2 Eos # (Auto) 0.0 Baso # (Auto) 0.0 Abs Immat Gran (auto) 0.00 Neutrophils % (Manual) Band Neutrophils % Lymphocytes % (Manual) Monocytes % (Manual) Neutrophils # (Manual) Band Neutrophils # Lymphocytes # (Manual) Monocytes # (Manual) Poikilocytosis Anisocytosis Tear Drop Cells Helmet Cells [place] Cells Acanthocytes (Spur) Schistocytes RBC Morph Comment Turbidity < 20 Sodium 133 L Potassium 4.6 Chloride 99 Carbon Dioxide 26 Anion Gap 8 BUN 36.0 H Creatinine 1.0 GFR Calculation 52 BUN/Creatinine Ratio 36 H Glucose 137 H Calculated Osmolality 266 Calcium 8.8 Total Bilirubin 0.80 Icterus Index < 2 AST 36 ALT 23 Alkaline Phosphatase 50 Troponin I 0.059 B-Natriuretic Peptide 8540 H Total Protein 6.3 Albumin 3.3 L Globulin 3.0 Albumin/Globulin Ratio 1.1 Plasma Lactate Specimen Hemolysis 41 H Ur Collection Type Urine Color Urine Clarity Urine pH Ur Specific [place] Urine Protein Urine Glucose (UA) Urine Ketones Urine Occult Blood Urine Nitrate Urine Bilirubin Urine Urobilinogen Ur Leukocyte Esterase Urine RBC Urine WBC Urine WBC Clumps Ur Squamous Epith Cells Urine Bacteria Ur Culture Indicated? Blood Type A Negative Antibody Screen Positive A* Antibody Identification Anti-D Crossmatch ([facility]) See Detail Blood Product Request 09/06/17 09/06/17 09/06/17 16:04 18:38 19:18 WBC RBC Hgb 6.8 L D Hct 20.8 L D MCV MCH MCHC RDW Std Deviation Plt Count MPV Immature Gran % (Auto) Neut % (Auto) Lymph % (Auto) [place] % (Auto) Eos % (Auto) Baso % (Auto) Neut # (Auto) Lymph # (Auto) [place] # (Auto) Eos # (Auto) Baso # (Auto) Abs Immat Gran (auto) Neutrophils % (Manual) Band Neutrophils % Lymphocytes % (Manual) Monocytes % (Manual) Neutrophils # (Manual) Band Neutrophils # Lymphocytes # (Manual) Monocytes # (Manual) Poikilocytosis Anisocytosis Tear Drop Cells Helmet Cells [place] Cells Acanthocytes (Spur) Schistocytes RBC Morph Comment Turbidity Sodium Potassium Chloride Carbon Dioxide Anion Gap BUN Creatinine GFR Calculation BUN/Creatinine Ratio Glucose Calculated Osmolality Calcium Total Bilirubin Icterus Index AST ALT Alkaline Phosphatase Troponin I B-Natriuretic Peptide Total Protein Albumin Globulin Albumin/Globulin Ratio Plasma Lactate Specimen Hemolysis Ur Collection Type Urine, void-cc/notcc Urine Color Yellow Urine Clarity Sl cloudy Urine pH 5.5 Ur Specific [place] 1.010 L Urine Protein Negative Urine Glucose (UA) Negative Urine Ketones Trace A Urine Occult Blood 1+ A Urine Nitrate Positive A Urine Bilirubin Negative Urine Urobilinogen 0.2 Ur Leukocyte Esterase 1+ A Urine RBC 1-3 Urine WBC 5-10 H Urine WBC Clumps Few Ur Squamous Epith Cells 5-10 Urine Bacteria 4+ H Ur Culture Indicated? Cult reflexed &setup Blood Type Antibody Screen Antibody Identification Crossmatch ([facility]) Blood Product Request 1 unit pc issued 09/06/17 09/06/17 09/06/17 20:21 23:49 23:49 WBC RBC Hgb 7.5 L Cancelled Hct 22.3 L MCV MCH MCHC RDW Std Deviation Plt Count MPV Immature Gran % (Auto) Neut % (Auto) Lymph % (Auto) [place] % (Auto) Eos % (Auto) Baso % (Auto) Neut # (Auto) Lymph # (Auto) [place] # (Auto) Eos # (Auto) Baso # (Auto) Abs Immat Gran (auto) Neutrophils % (Manual) Band Neutrophils % Lymphocytes % (Manual) Monocytes % (Manual) Neutrophils # (Manual) Band Neutrophils # Lymphocytes # (Manual) Monocytes # (Manual) Poikilocytosis Anisocytosis Tear Drop Cells Helmet Cells [place] Cells Acanthocytes (Spur) Schistocytes RBC Morph Comment Turbidity Sodium Potassium Chloride Carbon Dioxide Anion Gap BUN Creatinine GFR Calculation BUN/Creatinine Ratio Glucose Calculated Osmolality Calcium Total Bilirubin Icterus Index AST ALT Alkaline Phosphatase Troponin I B-Natriuretic Peptide Total Protein Albumin Globulin Albumin/Globulin Ratio Plasma Lactate Specimen Hemolysis Ur Collection Type Urine Color Urine Clarity Urine pH Ur Specific [place] Urine Protein Urine Glucose (UA) Urine Ketones Urine Occult Blood Urine Nitrate Urine Bilirubin Urine Urobilinogen Ur Leukocyte Esterase Urine RBC Urine WBC Urine WBC Clumps Ur Squamous Epith Cells Urine Bacteria Ur Culture Indicated? Blood Type Antibody Screen Antibody Identification Crossmatch ([facility]) Blood Product Request 1 unit pc issued 09/07/17 09/07/17 09/07/17 03:35 03:35 05:30 WBC 2.0 L RBC 2.10 L Hgb 6.8 L Hct 20.6 L MCV 98.1 MCH 32.4 MCHC 33.0 RDW Std Deviation 48.3 Plt Count 46 L MPV 12.6 H Immature Gran % (Auto) Not performed Neut % (Auto) Not performed Lymph % (Auto) Not performed [place] % (Auto) Not performed Eos % (Auto) Not performed Baso % (Auto) Not performed Neut # (Auto) Not performed Lymph # (Auto) Not performed [place] # (Auto) Not performed Eos # (Auto) Not performed Baso # (Auto) Not performed Abs Immat Gran (auto) Not performed Neutrophils % (Manual) 60.0 Band Neutrophils % 2.0 Lymphocytes % (Manual) 34.0 Monocytes % (Manual) 4.0 Neutrophils # (Manual) 1.2 L Band Neutrophils # 0.0 Lymphocytes # (Manual) 0.7 L Monocytes # (Manual) 0.1 Poikilocytosis 2+ Anisocytosis 2+ Tear Drop Cells 1+ Helmet Cells 1+ [place] Cells 1+ Acanthocytes (Spur) 2+ Schistocytes 1+ RBC Morph Comment Abnormal Turbidity < 20 Sodium 138 Potassium 3.9 Chloride 106 D Carbon Dioxide 27 Anion Gap 5 BUN 28.0 H Creatinine 0.8 D GFR Calculation 68 BUN/Creatinine Ratio 35 H Glucose 83 Calculated Osmolality 271 Calcium 7.6 L D Total Bilirubin Icterus Index < 2 AST ALT Alkaline Phosphatase Troponin I B-Natriuretic Peptide Total Protein Albumin Globulin Albumin/Globulin Ratio Plasma Lactate 0.7 Specimen Hemolysis < 15 Ur Collection Type Urine Color Urine Clarity Urine pH Ur Specific [place] Urine Protein Urine Glucose (UA) Urine Ketones Urine Occult Blood Urine Nitrate Urine Bilirubin Urine Urobilinogen Ur Leukocyte Esterase Urine RBC Urine WBC Urine WBC Clumps Ur Squamous Epith Cells Urine Bacteria Ur Culture Indicated? Blood Type Antibody Screen Antibody Identification Crossmatch ([facility]) Blood Product Request 1 unit pc issued 09/07/17 09/07/17 09/07/17 06:24 09:08 09:08 WBC RBC Hgb 8.1 L D Hct 24.5 L D MCV MCH MCHC RDW Std Deviation Plt Count MPV Immature Gran % (Auto) Neut % (Auto) Lymph % (Auto) [place] % (Auto) Eos % (Auto) Baso % (Auto) Neut # (Auto) Lymph # (Auto) [place] # (Auto) Eos # (Auto) Baso # (Auto) Abs Immat Gran (auto) Neutrophils % (Manual) Band Neutrophils % Lymphocytes % (Manual) Monocytes % (Manual) Neutrophils # (Manual) Band Neutrophils # Lymphocytes # (Manual) Monocytes # (Manual) Poikilocytosis Anisocytosis Tear Drop Cells Helmet Cells [place] Cells Acanthocytes (Spur) Schistocytes RBC Morph Comment Turbidity Sodium Potassium Chloride Carbon Dioxide Anion Gap BUN Creatinine GFR Calculation BUN/Creatinine Ratio Glucose Calculated Osmolality Calcium Total Bilirubin Icterus Index AST ALT Alkaline Phosphatase Troponin I 20.200 H D B-Natriuretic Peptide Total Protein Albumin Globulin Albumin/Globulin Ratio Plasma Lactate 1.5 Specimen Hemolysis 38 H Ur Collection Type Urine Color Urine Clarity Urine pH Ur Specific [place] Urine Protein Urine Glucose (UA) Urine Ketones Urine Occult Blood Urine Nitrate Urine Bilirubin Urine Urobilinogen Ur Leukocyte Esterase Urine RBC Urine WBC Urine WBC Clumps Ur Squamous Epith Cells Urine Bacteria Ur Culture Indicated? Blood Type Antibody Screen Antibody Identification Crossmatch ([facility]) Blood Product Request 09/07/17 15:11 WBC RBC Hgb 8.9 L Hct 26.3 L MCV MCH MCHC RDW Std Deviation Plt Count MPV Immature Gran % (Auto) Neut % (Auto) Lymph % (Auto) [place] % (Auto) Eos % (Auto) Baso % (Auto) Neut # (Auto) Lymph # (Auto) [place] # (Auto) Eos # (Auto) Baso # (Auto) Abs Immat Gran (auto) Neutrophils % (Manual) Band Neutrophils % Lymphocytes % (Manual) Monocytes % (Manual) Neutrophils # (Manual) Band Neutrophils # Lymphocytes # (Manual) Monocytes # (Manual) Poikilocytosis Anisocytosis Tear Drop Cells Helmet Cells [place] Cells Acanthocytes (Spur) Schistocytes RBC Morph Comment Turbidity Sodium Potassium Chloride Carbon Dioxide Anion Gap BUN Creatinine GFR Calculation BUN/Creatinine Ratio Glucose Calculated Osmolality Calcium Total Bilirubin Icterus Index AST ALT Alkaline Phosphatase Troponin I B-Natriuretic Peptide Total Protein Albumin Globulin Albumin/Globulin Ratio Plasma Lactate Specimen Hemolysis Ur Collection Type Urine Color Urine Clarity Urine pH Ur Specific [place] Urine Protein Urine Glucose (UA) Urine Ketones Urine Occult Blood Urine Nitrate Urine Bilirubin Urine Urobilinogen Ur Leukocyte Esterase Urine RBC Urine WBC Urine WBC Clumps Ur Squamous Epith Cells Urine Bacteria Ur Culture Indicated? Blood Type Antibody Screen Antibody Identification Crossmatch ([facility]) Blood Product Request - Microbiology Microbiology 09/06/17 18:38 Urine, Voided (Cc/notcc) Urine Culture - Preliminary Gram Negative Luis Alberto Gram Negative Luis Alberto#2 History of Present Illness HPI: Brenda Casiano is a pleasant 87-year-old female patient of Dr. Rangel who lives at home with her son. She reports that over the past few days she has had intermittent epigastric and central chest pain, similar to her pain she has with her GERD. She states that this morning her pain was worse so she took a total of 8 sublingual nitroglycerin tabs without improvement. She admits to taking her nitro whenever she can't sleep well, has decreased appetite or has any pain in her body. She denies any headache, dizziness, shortness of breath, fevers, chill, nausea, vomiting or dysuria. She does have a known history of recent GI bleed in June 2017 which required a blood transfusion and states that since that time her stools have been more hard and very dark. Due to her constipation, she stopped her iron supplementation about a week ago and increased her stool softeners. Her bowels became more loose yesterday and remain very dark despite discontinuation of her iron. She denies any bright red in her stools. Due to her pain, EMS was contacted and initially found her to be hypotensive with a blood pressure of 70/50. She was transported to [facility] ED for further evaluation. Upon arrival to the ED, blood pressure had improved to 116/58. She was noted to be extremely pale and found to be pancytopenic with a critical hemoglobin of 5.1. She has a known history of breast cancer as well as lung cancer with metastasis to the bone and lymph nodes per recent CT chest/ abdomen/pelvis on 08/02/17. She follows with Dr. Hannon and is currently taking Denosumab, Fulvestrant and Palbociclib in treatment for her cancer. CMP revealed mild hyponatremia (Na 133). Troponin was 0.059 and BNP was elevated at 8540. CXR was obtained and revealed no pneumonia with trace effusions. Due to her critical hemoglobin with suspected GI bleed, Dr. Read was consulted and she was accepted into inpatient status in ICU for further evaluation, close monitoring of hemodynamic stability, blood transfusion and surgical evaluation for suspected GI bleed. Her length of stay is expected to exceed more than 2 over nights. Extensive review of her prior medical records, nursing notes and ED records indicates that she underwent a heart cath on 08/31/[address] Verma. Objective Vital signs: Temperature 97.6 F 09/07/17 08:30 Pulse Rate 95 09/07/17 12:00 Respiratory Rate 34 H 09/07/17 12:00 Blood Pressure 94/51 09/07/17 12:00 Pulse Oximetry 95 09/07/17 12:00 Height/Weight/BMI: Height 5 ft Weight 60.7 kg Body Mass Index 26.1 Hospital Course This is a general summary of the patient's hospital course. For more details refer to the complete medical record. Hospital course: Plan - 09/06/17 (Admission) Admit to inpatient status to ICU under Dr. Read. Consult Dr. Le for surgery evaluation of suspected GI bleed. Obtain fecal occult for confirmation now. Will type, cross and give 2 units now. Monitor serial hemoglobins Q6H and monitor closely for signs of acute bleeding. Initiate Protonix 40mg IV BID for GERD and GI protection. Will maintain NPO status during blood transfusion. NS 60cc/hr for gentle hydration. Zofran PRN nausea/vomiting. Morphine PRN pain. Metoprolol 5mg IV PRN hypertension, though currently her blood pressure is low. Monitor closely on telemetry. Monitor closely for fluid overload. Encourage incentive spirometry for pulmonary toileting. SCDs and Maurice hose for DVT prophylaxis. Upon discharge, patient's care will be returned to her PCP, Dr. Rangel. At the time of exam, the patient's request to be made a DNR. Order changed in the computer. Plan 09/07/17 Continue admission to ICU Will initiate pressors for MAP <60. Will need to place PICC if pressors needed, will attempt volume res to gauge response. Consult Dr. Verma--patient has been told by cardiology that there are no further options other than hospice but patient refuses hospice at this time Consult Dr. Le for surgery evaluation of suspected GI bleed. Obtain fecal occult for confirmation now. Patient is not a good candidate for sedation/ surgical intervention, discussed with patient who requests consult for procedures Monitor serial hemoglobins Q6H and monitor closely for signs of acute bleeding. Continue Protonix 40mg IV BID for GERD and GI protection. Will maintain NPO status. NS 60cc/hr for gentle hydration. s/p boluses overnight Zofran PRN nausea/vomiting. Morphine PRN pain. Metoprolol 5mg IV PRN hypertension, though currently her blood pressure is low. Monitor closely on telemetry. Monitor closely for fluid overload. Encourage incentive spirometry for pulmonary toileting. SCDs and Maurice hose for DVT prophylaxis due to anemia/suspected bleed At the time of exam, the patient's request to be made a DNR. Order changed in the computer. Patient has a poor prognosis and invasive/aggressive care is unlikely to provide life saving measures. Discussed this extensively with patient who still wishes to for aggressive care. Will call family to come for goals of care talk as soon as possible. Family discussion on 09/07/17 with DPOA, Daughter Abida. Patient oriented to self place and time but unable to understand complex decisions. Patient was struggling to follow conversations. Family and patient discussed clinical situation with Dr. Le. GI is unable to do EGD or colonoscopy as patient not able to tolerate anesthesia. Dr. Verma discussed that there are no medical or surgical options for severe aortic stenosis, [place] or CAD. Extensively discussed all the medical complexities, the limitations, the risks/benefits and options. Family understands that medical interventions are severely limited and aggressive interventions are unlikely to change the clinical course. Family and patient elect to take patient home at this time and not have any more inpatient treatment. Patient still wants to take her home medications. Family plans on finding hospice and making arrangements on their own rather than having case management assist with arrangements. Family very well aware that there is a high risk of sudden . Answered all questions and addressed all concerns. Patient discharged in critical condition with a high risk of . Time spent with patient: discharge greater than 30 minutes Resuscitation Status: Do Not Resuscitate Discharge Plan - Discharge Disposition Discharge Date: 09/07/17 Disposition: 01 Discharged Home, Self-Care *Condition: Critical Reason For Visit (Visit label in EMR): symptomatic anemia - Discharge Medications *Discharge Medications: Continue Fulvestrant [Faslodex] 50 mg IM Q30D Vitamin B Complex [Balanced B-50] 1 each PO DAILY Calcium Carb/Mag Ox/Zinc Gluc [Eqbbbaw-Btexlpxhn-Jnjp Tablet] 1 each PO DAILY Ascorbate Calcium [Vitamin C] 500 mg PO DAILY Propranolol [Inderal] 20 mg PO BID Potassium Chloride [Klor-Con M20] 20 meq PO TID Omeprazole/Sodium Bicarbonate [Omeprazole-Bicarb 20-1,100 Cap] 1 each PO DAILY Palbociclib [Ibrance] 125 mg PO DAILY Levothyroxine Tab [Synthroid] 62.5 mcg PO ACB Denosumab [Xgeva] 120 mg SQ Q30D Ferrous Sulfate [Iron] 325 mg PO DAILY Albuterol/Ipratropium [Duoneb] 1 unit AEROSOL Q6H Discontinued hydroCHLOROthiazide [Hydrochlorothiazide] 25 mg PO DAILY Torsemide 10 mg PO DAILY Nitroglycerin [Nitrostat] 0.3 mg SL Q5M PRN PRN Reason: Chest Pain - Discharge Packet/Instructions *Diet: as tolerated *Activity: as tolerated *Pain Management/Treatment: Recommed Hospice *Wound Care: n/a *Expected Signs/Symptoms: Continued decline, chest pain, possible bleeding *Notify Physician if: aggressive care wanted *During Business Hours Contact: PCP *After Business Hours Contact: conciliation court judge physician or ED or hospice depending on arrangements made *Pending Lab/Results: No Pending Lab - Referrals/Follow Up *Referrals/Follow Up: Darius Rangel II, MD [Family Provider] - (as needed depending on Hospice arrangements) - Patient Handouts - Dismissal Complete Discharge Instructions are:: Complete Physician Narrative - Narrative Attestation Narrative: Date: 09/07/17 Time: 8789
--- NOTE | 2017-09-07 19:01 | Consultation ---
DATE OF CONSULTATION 09/07/2017 HISTORY OF PRESENT ILLNESS This patient is 87 years old. This patient is known to have critical aortic stenosis. She did undergo a cardiac catheterization on 08/30/[address] Verma at [facility]. The patient was found to have multivessel coronary artery disease at this time. The patient does have breast cancer metastatic to the lung. She has pancytopenia due to chemotherapy. Due to all these comorbidities, Dr. Dr. Verma recommended medical management for the diffuse coronary artery disease. The patient did come to [facility] Emergency Room on 09/06/2017 with central chest pain. The patient reported that she had taken a total of eight sublingual nitroglycerin tablets without improvement in the chest pain. The patient has been taking oral iron supplementation. Due to constipation, the patient stopped taking her iron supplementation about a week ago. She stopped the iron supplementation because it was causing constipation. The patient started taking more stool softeners. The patient reported that her stools were still dark despite stopping the iron a week earlier. The patient was not having black stools but was having dark stools. The patient denied any bright red blood in her stools. The patient was transported to [facility] by EMS on 09/06/2017 because of the chest pain. EMS personnel found the patient had a blood pressure of 70/50. The patient was hypotensive. At arrival at [facility] Emergency Room the blood pressure had improved to 116/58. The patient does receive chemotherapy for treatment of her breast cancer with pulmonary metastases. She receives chemotherapy from Dr. Hannon and has recently been taking Denosumab, Fulvestrant and Palbociclib for treatment of her cancer. The patient does have pancytopenia which is probably related to the chemotherapy. The patient was found at evaluation at [facility] Emergency Room on 09/06/2017 to have a critical hemoglobin of 5.1. The troponin was 0.059 at evaluation at the emergency room. The BNP was elevated at 8540. The patient was admitted to [facility] from the emergency room by the hospitalist service. The patient was admitted to the intensive care unit for close monitoring of her hemodynamic stability. The patient was transfused following admission with 2 units of packed red blood cells. Protonix 40 mg IV b.i.d. was started. Because of the hemoglobin of 5.1 and a history of dark stools, there was concern that the patient might be having some gastrointestinal tract bleeding. Plans were made to consult Dr. Le regarding suspected gastrointestinal tract bleeding. Dr. Le was not contacted about the consult on 09/06/2017. Dr. Le did become aware of the consult on the morning of 09/07/2017. Hemoglobin was 6.8 and hematocrit was 20.6 on the morning of 09/07/2017. Troponin was repeated on the morning of 09/07/2017 and troponin was 20.[address] Verma was consulted on 09/07/2017. The repeat troponin level of 20.2 was noted. The patient was known to have ST depression in multiple leads on the EKG. It was thought by Dr. Verma that the patient is experiencing a non-ST elevated myocardial infarction. The patient is also known to have severe aortic stenosis. It was discussed with the patient and her family by the cardiology service that the usual medications that would be used for treatment of the myocardial infarction and the valve disease are not indicated due to the hypotension and the history of bleeding. PHYSICAL EXAM VITAL SIGNS: Pulse is 97. Respiratory rate is 63. Blood pressure is 92/56. Oxygen saturation is 96%. ABDOMEN: The abdomen is soft and nontender at this time. RECTUM: Exam deferred at the present time. LABORATORY DATA Hemoglobin was 5.1 and hematocrit was 15.4 at 1221 hours on 09/06/2017 at [facility]. Repeat hemoglobin at 0335 hours on 09/07/2017 is 6.8. Hematocrit is 20.6. White blood cell count is 2000. Platelet count is 46,000 today. Serum troponin was 0.059 on 09/06/2017. A repeat serum troponin on is 20.2. EKG shows ST-depression in multiple leads. IMPRESSION 1. Severe pancytopenia probably due to chemotherapy for treatment of breast cancer with pulmonary metastases. There is some chance that some of the anemia could be due to gastrointestinal tract bleeding since the patient has had some recent dark stools. 2. Non-ST elevated myocardial infarction. 3. Severe multivessel coronary artery disease. 4. Severe critical aortic stenosis. RECOMMENDATION I did discuss with the anesthesia service at [facility] the possibility of performing a gastrointestinal tract endoscopy on this patient to evaluate the patient for possible gastrointestinal tract bleeding as a cause for some of her severe anemia. The cardiac status of the patient was reviewed with the anesthesia service here at [facility]. After this discussion with members of the anesthesia department, it is thought that the patient is not a candidate for esophagogastroduodenoscopy or colonoscopy because of the cardiac risk of the procedure at this time. The cardiac risk is thought to be too high at this time to safely proceed with any esophagogastroduodenoscopy or colonoscopy procedure. ERIC
[2017-09-07 19:41] VITALS: BP 86/57; PULSE 97; RESP 40; O2SAT 98
[2017-09-07] MEDS ORDERED: CEFTRIAXONE 1 G in NS 50 ML IV SCH (20:00)
== END 2017-09-07 19:00 | disposition hospice, home (50) | DRG 377 ==
LOC: SUPCPDRO → ED 11:59 → CCU 13:15
PROVIDERS: ADMIT Pediatrics; ATTEND Pediatrics